=== PATIENT | female | born 1950 | race Caucasian/White ===

== ENCOUNTER 2022-03-12 10:19 | Outpatient (CLI) | payer MEDICARE, SELFPAY ==
[2022-03-12 13:38] LABS: Albumin* 3.9 g/dL (3.3-5.0)
[2022-03-12 13:40] LABS: Bilirubin Direct* 0.2 mg/dL (0.0-0.5); Bilirubin Total* 0.4 mg/dL (0.1-1.5)
[2022-03-12 13:41] LABS: Alanine Aminotransferase* 14 U/L (4-35); Alkaline Phosphatase* 68 U/L (40-150); Aspartate Amino Transferase* 22 U/L (12-35); Lipase* 75 U/L (23-300); Total Protein* 6.3 g/dL (6.0-8.3)
== END 2022-03-12 10:20 | disposition home or self-care (01) ==
PROVIDERS: PCP Internal Medicine; Visit Provider Family Medicine
DX: R10.9 Unspecified abdominal pain (principal)
CPT/HCPCS: 80076; 83690

== ENCOUNTER 2022-03-13 10:52 | Outpatient (CLI) | payer MEDICARE, SELFPAY | END 2022-03-13 10:53 | disposition home or self-care (01) | PROVIDERS: PCP Internal Medicine; Visit Provider Obstetrics & Gynecology | DX: R39.15 Urgency of urination (principal) | CPT/HCPCS: 87086 ==

== ENCOUNTER 2022-03-19 10:11 | Day surgery (SDC) | payer MEDICARE, SELFPAY ==
[2022-03-19] VITALS (17 sets, daily range): BP systolic 115–142; BP diastolic 65–84; PULSE 63–79; RESP 14–16; TEMP 35.6–36.5; O2SAT 93–100; BMI 20.9
[2022-03-19] MEDS: LACTATED RINGERS 1000 ML 1,000 ML 100 ML IV (10:30)
[2022-03-19] MEDS: ETHYL CHLORIDE 1 APPLICATION 1 APPLIC TOPICAL (10:54)
[2022-03-19] MEDS: SODIUM CHLORIDE 0.9 % (FLUSH) 10 ML SYRINGE IVF (10:55)
--- NOTE | 2022-03-19 16:13 | PM.GSPRC ---
Operative Note Date of procedure: 03/19/22 Type of Procedure: Laparoscopic cholecystectomy Procedure Description: After discussing the risks and benefits of the procedure, the patient signed informed consent.? The operative site was marked and the patient was brought to the operating room and placed on the operating table in supine position.? Care was taken to pad the patient's pressure points.?? The patient was then intubated by anesthesia.?? The operative site was then prepped and draped in the usual sterile fashion.? A time-out was then performed. Entrance to the abdomen was gained via a 5 mm Visiport in the left upper quadrant. The abdomen was insufflated and briefly surveyed for signs of injury. There was none. 11 mm umbilical port was placed as well as 2 working ports along the right costal margin. Patient was then placed in reverse Trendelenburg position with the right side up. The gallbladder had significant adhesions from the omentum, encasing the inflamed gallbladder. These adhesions were bluntly taken down and the gallbladder was noted to be hemorrhagic, edematous and in parts necrotic. There was difficulty in grasping it, so a laparoscopic needle was used to decompress as much as possible. After decompression the fundus was grasped and retracted cephalad. Dissection was made difficult secondary to hard, Vivian inflammation. The infundibulum was grasped. A combination of hook cautery and blunt dissection was used to carefully dissect out the cystic duct and artery until they could clearly be seen entering the gallbladder. There was also a small vein running parallel with the artery. The gallbladder was dissected off the cystic plate to achieve the critical view. Once this was achieved the cystic duct and artery were each clipped with 2 clips proximally and 1 clip distally and transected with the scissors. The gallbladder was then taken off of the liver bed. And removed from the abdomen using an Endo-Catch bag. A small laceration of the liver bed was noted after the procedure pleural bleeding from this area was controlled with cautery and Surgicel. I also placed Karlos within the gallbladder fossa. Once hemostasis was assured. The ports were then removed under direct vision. The umbilical port fascia was closed with 0 Vicryl. The skin was closed with absorbable subcuticular suture. Instrument sponge and needle counts were correct at the end of the case. The patient was then woken and transferred to the PACU in stable condition. ? Findings: Acute cholecystitis, distended, hemorrhagic and necrotic gallbladder. Anesthesia: GETA Surgeon: Lisbeth Galdamez MD Estimated blood loss (mL): 250 Condition: stable Disposition: PACU
[2022-03-19] MEDS: LACTATED RINGERS 1000 ML 1,000 ML 35 ML IV (16:19)
--- NOTE | 2022-03-19 16:23 | W.ANESCHARGE ---
Anesthesia Charges Start Date/Time Anesthesia Start Date: 03/19/22 Anesthesia Start Time: 12:39 Stop Date/Time Anesthesia Stop Date: 03/19/22 Anesthesia Stop Time: 16:05 Summary Emergency: No Extremes of Age: Over 68-CPT 62068
[2022-03-19] MEDS: ONDANSETRON 2 MG/ML inj IVP (17:38)
[2022-03-19 18:08] LABS: Chloride* 100 mmol/L (96-114); Potassium* 3.9 mmol/L (3.6-5.1); Sodium* 140 mmol/L (135-149)
[2022-03-19 18:11] LABS: Blood Urea Nitrogen* 14 mg/dL (7-30); Carbon Dioxide* 32 mmol/L (20-32); Creatinine* 0.4 mg/dL (0.5-1.5); Est. Creatinine Clearance* 45.09; Estimated Glomerular Filt Rate 104 ml/min; Glucose* 136 mg/dL (60-115)
[2022-03-19 18:12] LABS: Calcium* 8.6 mg/dL (8.4-10.6); Magnesium* 2.3 mg/dL (1.5-2.6)
--- NOTE | 2022-03-19 18:19 | PM.IMCN1 ---
Date of Consult Consult date: 03/19/22 Requesting Physician: General Surgery Primary Care Provider: Nina Mcintosh MD Consult Narrative Reason for consult: 71-year-old female seen for management of estee op medical complications Narrative: Bryan Rivera is a 71 year old female seen following laparoscopic cholecystectomy for management of medical problems, specifically bradycardia that occurred intraop and immediately postoperatively. Patient has had minimal symptoms of cholecystitis over the past couple weeks. Was seen outpatient for evaluation of this and ultrasound showed significantly abnormal gallbladder with gallbladder wall thickening and edema with gallbladder wall up to 1.7 cm and moderate burden of gallstones. She was referred to for surgical consultation. Today she was taken to the operating room where she had cholecystectomy performed laparoscopically. Per Dr. Galdamez the surgery was challenging due to the marked inflammation. At the end of the operation the abdominal cavity was deflated and she developed sinus bradycardia. They reinflated the abdomen and resolved. The same process occurred again. Eventually they were able to remove the air from the abdomen and she had a normal sinus rhythm. She did not have significant other abnormal vital signs with this process. She now reports that she is feeling fine. She has no significant discomfort. She has no shortness of breath, palpitations, chest pain. She reports no significant history of heart disease. She does tell me that she has had a occasional episodes of palpitations which are felt as irregular and rapid heartbeats that last for a few seconds. This occurs a couple times a week. She has never been diagnosed with a tachy dysrhythmia. She is not aware of any other heart disease history. When she was younger someone mentioned she had a heart murmur but it has not been evaluated or identified over the past several years. Review of Systems Narrative: She reports she has generally been feeling well. She has had minimal upper abdominal discomfort and pain associated with her acute cholecystitis. She has not had fever, nausea, vomiting. Over the past several days she reports she was thinking that she was actually getting better from a episode of pain last week. Bowel function has been normal. She does report that she has some chronic ureteral vaginal prolapse which does lead to some urinary urge incontinence. This has not changed recently [facility] Medical History History of iron deficiency anemia (2013) Urge incontinence Uterovaginal prolapse Surgical History History of ankle surgery History of bilateral cataract extraction (2020) History of tonsillectomy and adenoidectomy (08/29/11) History of tubal ligation (07/15/11) S/P breast biopsy Social History Smoking Status: Never smoker How often do you have a drink containing alcohol: 4 or more times a week Alcohol type: wine How many standard drinks containing alcohol do you have on a typical day: 1 or 2 How often do you have six or more drinks on one occasion: Never AUDIT-C Alcohol total score: 4 Non-prescribed substance use: denies use Caffeine: Yes (2/DAY) Meds Home Medications and Allergies Home Medications Medication Instructions Recorded Confirmed Type calcium carbonate 500 mg-vitamin 1 tab PO DAILY 03/12/22 03/19/22 History D3 3.125 mcg (125 unit) tablet estradiol 0.01% (0.1 mg/gram) 0.5 VAGINAL .Twice Weekly 03/12/22 03/15/22 History vaginal cream fexofenadine 60 mg tablet 60 mg PO DAILY PRN tab 03/12/22 03/19/22 History fluticasone propionate 50 2 INTRANASAL .Daily as needed PRN 03/12/22 03/15/22 History mcg/actuation nasal spray,suspension glucosamine HCl 500 mg tablet 500 mg PO QDAY 03/12/22 03/19/22 History primidone 250 mg tablet 250 mg PO BID tab 03/12/22 03/19/22 History propranolol 60 mg capsule,24 60 mg PO DAILY 03/12/22 03/19/22 History hr,extended release vit C 250 mg-vit E 90 mg-zinc 40 1 tab PO BID 03/12/22 03/19/22 History mg-copper 1 [id number] capsule (PreserVision AREDS-2) Allergies Allergy/AdvReac Type Severity Reaction Status Date / Time No Known Allergies Allergy Unknown Verified 03/19/22 10:56 Exam Narrative: Exam Narrative: She is alert and appears in no distress. She gives her own history. She is accompanied by her and daughter. Eyes are normal. Oropharynx normal. Neck is supple without mass or adenopathy. Respirations are clear to auscultation. Cardiovascular: S1, S2, regular rate and rhythm. No murmur gallop or rub. Abdomen: Bowel sounds active. Abdomen has for laparoscopic puncture sites which are well healed. No significant drainage. Palpation shows mild right upper quadrant tenderness and no other abdominal tenderness or mass. Extremities with intact pulses. She has good capillary refill and moves all 4 extremities well. No edema. Const: Vital Signs, click to edit/add: Vital Signs - 24 hr 03/19/22 10:37 03/19/22 16:29 03/19/22 16:30 Temperature 97.7 F 97.2 F L 97 F L Pulse Rate 70 68 Respiratory Rate 16 14 16 Blood Pressure 128/75 128/68 121/71 Pulse Oximetry 97 100 03/19/22 16:35 03/19/22 16:40 03/19/22 16:45 Temperature Pulse Rate 68 68 72 Respiratory Rate 16 16 16 Blood Pressure 132/74 126/70 Pulse Oximetry 96 96 97 Documenting provider has reviewed patient's vital signs: yes Labs Labs: [facility] 03/19/22 17:48 Sodium 140 Potassium 3.9 Chloride 100 Carbon Dioxide 32 BUN 14 Creatinine 0.4 L Glucose 136 H Calcium 8.6 Assessment and Plan Assessment and plan (1) Bradycardia associated with anesthesia: Status: Acute Assessment and Plan: Patient developed bradycardia with attempts to deflate the abdomen following laparoscopic surgery. Now resolved. No cardiovascular instability noted other than bradycardia. Will do cardiac monitoring overnight. Obtain echocardiogram tomorrow. (2) Chronic cholecystitis: Status: Acute Assessment and Plan: Status post cholecystectomy doing very well
[2022-03-19] MEDS: ROPINIROLE HCL 0.25 MG TABLET 0.5 MG PO (20:57)
[2022-03-19] MEDS: PRIMIDONE 50 MG TABLET 250 MG PO (20:57)
[2022-03-19] MEDS: ACETAMINOPHEN 325 MG TABLET 650 MG PO (22:55)
[2022-03-20] MEDS: LACTATED RINGERS 1000 ML 1,000 ML 125 ML IV (00:01)
[2022-03-20 00:15] VITALS: BP 114/57; PULSE 73; PULSE 74; RESP 16; TEMP 37; O2SAT 93
[2022-03-20] MEDS: OXYCODONE 5 MG TABLET PO ×3 (00:42→11:51)
[2022-03-20 01:22] VITALS: PULSE 69
[2022-03-20 03:19] VITALS: BP 112/88; PULSE 71; RESP 16; TEMP 36.7; O2SAT 94
--- NOTE | 2022-03-20 05:08 | PC.NURSE ---
[id number] Pt restless and unable to sleep well during night, pain minimal at 3/10, relief to 0/10 with 5 mg oxycodone x1. able to maintain sats >90% during night on RA. denies N/V, tolerating PO intake. IV to R wrist infiltrated, removed IV, elavated and warm blanket applied to arm, charge nurse updated, will update MD. lap sites x4, glued/intact, minimal old blood to sites. Daughter, Cassidy, in room with patient.
[2022-03-20 07:25] VITALS: PULSE 69
[2022-03-20 07:32] LABS: Basophils Absolute Auto 0.03 K/uL (0.00-0.30); Basophils Percent Auto 0.5 % (0.0-3.0); Eosinophils Absolute Auto 0.03 K/uL (0.00-0.50); Eosinophils Percent Auto 0.5 % (0.0-7.0); Hematocrit 38.2 % (33.0-51.0); Hemoglobin* 12.7 gm/dL (12.0-16.0); Lymphocytes Absolute Auto 1.56 K/uL (0.90-2.90); Lymphocytes Percent Auto 26.8 % (20-44); Mean Corpuscular HGB Conc 33 gm/dL (32-36); Mean Corpuscular Hemoglobin 31 pg (26-34); Mean Corpuscular Volume 94 fL (80-100); Monocytes Percent Auto 7.4 % (0.0-11.0); Neutrophils Absolute Auto 3.77 K/uL (1.7-7.0); Neutrophils Percent Auto 64.8 % (42.0-72.0); Platelet Count* 326 K/uL (140-440); RDW Coefficient of Variation % 13.1 % (11.5-15.5); Red Blood Count 4.05 m/uL (4.00-5.20); White Blood Count* 5.82 K/uL (4.50-11.00)
[2022-03-20 07:41] VITALS: BP 111/71; PULSE 64; RESP 16; TEMP 36.9; O2SAT 96
[2022-03-20 07:43] LABS: Slide Review Reflex No
--- NOTE | 2022-03-20 08:27 | W.ANESCHARGE ---
Anesthesia Charges Start Date/Time Anesthesia Start Date: 03/19/22 Anesthesia Start Time: 12:39 Stop Date/Time Anesthesia Stop Date: 03/19/22 Anesthesia Stop Time: 16:05 Summary Emergency: No Extremes of Age: Over 68-CPT 46454
[2022-03-20] MEDS: PRIMIDONE 50 MG TABLET 250 MG PO (08:42)
--- NOTE | 2022-03-20 09:02 | PM.DS1 ---
DS: Providers Provider Date Seen: 03/20/22 Primary care physician: Nina Mcintosh MD Consults: 03/19/22 16:04 Consult to Physician [CONS] Urgent Comment: Consulting Provider: David Bunch Has provider been notified: Yes Attending Physician on discharge: Lisbeth Galdamez MD DS: Diagnosis Discharge Diagnosis (1) Chronic cholecystitis: Status: Acute (2) Bradycardia associated with anesthesia: Status: Acute DS: Summary Hospital Course Hospital Course: Patient was seen in the clinic last week for right upper quadrant abdominal pain. At that time the pain was resolving and patient was scheduled to undergo laparoscopic cholecystectomy. She underwent a laparoscopic cholecystectomy on 03/19/2022. The procedure was difficult secondary to and edematous, hemorrhagic and necrotic gallbladder. During the procedure she also had some bradycardia. She was admitted to the hospital for observation. The hospitalist was consulted, with patient undergoing cardiac monitoring overnight. No cardiac events overnight, echo was obtained prior to leaving and within normal limits. On the day of discharge patient was tolerating a regular diet, pain was well controlled and hemoglobin stable. Time Spent with Patient Time attestation: Total time spent providing and/or coordinating discharge services: Exam Narrative: Exam Narrative: General: Alert and oriented, no acute distress. Abdomen: Soft, nontender, incisions clean/dry/intact with no concern for infection Const: Vital Signs, click to edit/add: Vital Signs - 24 hr 03/19/22 10:37 03/19/22 16:29 03/19/22 16:30 Temperature 97.7 F 97.2 F L 97 F L Pulse Rate 70 68 Pulse Rate [Right Pulse Oximeter] Respiratory Rate 16 14 16 Blood Pressure 128/75 128/68 121/71 Blood Pressure [Ri ght Arm] Pulse Oximetry 97 100 03/19/22 16:35 03/19/22 16:40 03/19/22 16:45 Temperature Pulse Rate 68 68 72 Pulse Rate [Right Pulse Oximeter] Respiratory Rate 16 16 16 Blood Pressure 132/74 126/70 Blood Pressure [Ri ght Arm] Pulse Oximetry 96 96 97 03/19/22 17:00 03/19/22 17:15 03/19/22 17:30 Temperature 96.1 F L 96.8 F L 96.1 F L Pulse Rate Pulse Rate [Right Pulse Oximeter] 67 65 67 Respiratory Rate 16 16 16 Blood Pressure Blood Pressure [Ri ght Arm] 141/84 H 127/74 132/70 Pulse Oximetry 99 99 96 03/19/22 17:45 03/19/22 18:00 03/19/22 18:30 Temperature 96.1 F L 96.9 F L Pulse Rate Pulse Rate [Right Pulse Oximeter] 67 65 70 Respiratory Rate 16 16 16 Blood Pressure Blood Pressure [Ri ght Arm] 137/73 130/74 142/78 H Pulse Oximetry 98 94 96 03/19/22 19:00 03/19/22 19:04 03/19/22 20:17 Temperature 96.9 F L 96.1 F L 96.9 F L Pulse Rate 63 Pulse Rate [Right Pulse Oximeter] 71 74 Respiratory Rate 16 16 16 Blood Pressure Blood Pressure [Ri ght Arm] 134/65 140/70 H Pulse Oximetry 97 97 03/19/22 21:00 03/19/22 22:36 03/20/22 00:15 Temperature 97.7 F 98.6 F Pulse Rate Pulse Rate [Right Pulse Oximeter] 79 78 74 Respiratory Rate 16 16 Blood Pressure Blood Pressure [Ri ght Arm] 139/70 115/70 114/57 L Pulse Oximetry 96 93 93 03/20/22 01:22 03/20/22 03:19 03/20/22 07:25 Temperature 98.1 F Pulse Rate 69 69 Pulse Rate [Right Pulse Oximeter] 71 Respiratory Rate 16 Blood Pressure Blood Pressure [Ri ght Arm] 112/88 Pulse Oximetry 94 03/20/22 07:41 Temperature 98.4 F Pulse Rate Pulse Rate [Right Pulse Oximeter] 64 Respiratory Rate 16 Blood Pressure Blood Pressure [Ri ght Arm] 111/71 Pulse Oximetry 96 DS: Data Data Completed and Pending Labs on day of discharge: Labs from last 24 hours 03/20/22 03/19/22 03/19/22 06:50 17:48 15:18 WBC 5.82 RBC 4.05 Hgb 12.7 Hct 38.2 MCV 94 MCH 31 MCHC 33 RDW Coeff of Renee 13.1 Plt Count 326 Neut % (Auto) 64.8 Lymph % (Auto) 26.8 [place] % (Auto) 7.4 Eos % (Auto) 0.5 Baso % (Auto) 0.5 Neut # (Auto) 3.77 Lymph # (Auto) 1.56 [place] # (Auto) 0.40 Eos # (Auto) 0.03 Baso # (Auto) 0.03 Abs Immat Gran (auto) 0.00 Sodium 140 Potassium 3.9 Chloride 100 Carbon Dioxide 32 BUN 14 Creatinine 0.4 L Estimated Creat Clear 45.09 Estimated GFR 104 Glucose 136 H Calcium 8.6 Magnesium 2.3 Surg PTH (Off-Site) Pending Discharge Plan Discharge Disposition: Home, Self-Care Discharging Surgeon: Lisbeth Galdamez Follow-Up Appointment: 2 weeks, phone follow up Prescriptions: New oxycodone 5 mg tablet 5 mg PO Q6H PRN (Reason: pain) Qty: 10 0RF senna 8.6 mg capsule 8.6 mg PO DAILY PRN (Reason: constipation) Qty: 90 0RF Rx Instructions: Please take stool softeners while on narcotic pain medication. Stop if having > 2 stools per day. Continued calcium carbonate-vitamin D3 500 mg-3.125 mcg (125 unit) tablet 1 tab PO DAILY fexofenadine 60 mg tablet 60 mg PO DAILY PRN PreserVision AREDS-2 250-90-40-1 mg capsule 1 tab PO BID propranolol 60 mg capsule,extended release 24 hr 60 mg PO DAILY primidone 250 mg tablet 250 mg PO TID estradiol 0.01 % (0.1 mg/gram) cream 0.5 appful vaginal 2XW PRN Rx Instructions: use nightly for 2 weeks, then twice weekly fluticasone propionate 50 mcg/actuation spray,suspension 2 spray intranasal DAILY PRN glucosamine HCl 500 mg tablet 500 mg PO QDAY Rx Instructions: administer with a meal ropinirole 0.5 mg tablet 0.5 mg PO QDAY Qty: 30 5RF venlafaxine 75 mg capsule,extended release 24hr 75 mg PO DAILY Activity Level: Activity as Tolerated Activity Detail: Activity as tolerated. Avoid strenuous activity. No lifting greater than 20 lb for 2 weeks. Discharge Diet: Low Fat/Low Cholesterol Patient Instructions: Oxycodone, Rapid Release (By mouth), Senna (By mouth), Laparoscopic Cholecystectomy (DC) Additional Instructions: Okay to shower. No soaking in a bath or swimming for 2 weeks. Please have your primary care provider follow up on Echo results Follow-up: Lisbeth Galdamez MD [Staff Physician] - 04/03/22 2:00 pm (Phone appointment, clinic will call you. ) Nina Mcintosh MD [Primary Care Provider] - Discharge Orders: Discharge Order (Routine); Ordered 03/20/22 Ordered By: Mohan Harp
[2022-03-20 11:09] VITALS: BP 127/76; PULSE 78; RESP 16; TEMP 37.1; O2SAT 96
[2022-03-20] MEDS: ACETAMINOPHEN 325 MG TABLET 650 MG PO (13:27)
--- NOTE | 2022-03-20 13:39 | PM.IMPN1 ---
Progress Note: A&P Assessment and plan (1) Bradycardia associated with anesthesia: Status: Acute Plan (1) Bradycardia associated with anesthesia: ?Status:?Acute ?Assessment and Plan: Patient developed bradycardia with attempts to deflate the abdomen following laparoscopic surgery.? Now resolved.? No cardiovascular instability noted other than bradycardia.? Prelim Echo re-assuring; will need PCP to follow up on formal Echo (2) Chronic cholecystitis: ?Status:?Acute ?Assessment and Plan: Status post cholecystectomy doing very well Time Spent With Patient Total time spent: 20 minutes Subjective Date Seen: 03/20/22 Interval history: patient doing well discharging today denies chest pain, pressure, sob denies dizziness Exam Narrative: Exam Narrative: Gen: NAD HEENT: NCAT EOMI MMM CV: RRR normal s1 s2 Lungs: CTAB Abd: soft, nt, nd Neuro: Alert, oriented Const: Vital Signs, click to edit/add: Vital Signs - 24 hr 03/19/22 16:29 03/19/22 16:30 03/19/22 16:35 Temperature 97.2 F L 97 F L Pulse Rate 68 68 Pulse Rate [Right Pulse Oximeter] Respiratory Rate 14 16 16 Blood Pressure 128/68 121/71 132/74 Blood Pressure [Ri ght Arm] Pulse Oximetry 100 96 03/19/22 16:40 03/19/22 16:45 03/19/22 17:00 Temperature 96.1 F L Pulse Rate 68 72 Pulse Rate [Right Pulse Oximeter] 67 Respiratory Rate 16 16 16 Blood Pressure 126/70 Blood Pressure [Ri ght Arm] 141/84 H Pulse Oximetry 96 97 99 03/19/22 17:15 03/19/22 17:30 03/19/22 17:45 Temperature 96.8 F L 96.1 F L 96.1 F L Pulse Rate Pulse Rate [Right Pulse Oximeter] 65 67 67 Respiratory Rate 16 16 16 Blood Pressure Blood Pressure [Ri ght Arm] 127/74 132/70 137/73 Pulse Oximetry 99 96 98 03/19/22 18:00 03/19/22 18:30 03/19/22 19:00 Temperature 96.9 F L 96.9 F L Pulse Rate Pulse Rate [Right Pulse Oximeter] 65 70 71 Respiratory Rate 16 16 16 Blood Pressure Blood Pressure [Ri ght Arm] 130/74 142/78 H 134/65 Pulse Oximetry 94 96 97 03/19/22 19:04 03/19/22 20:17 03/19/22 21:00 Temperature 96.1 F L 96.9 F L 97.7 F Pulse Rate 63 Pulse Rate [Right Pulse Oximeter] 74 79 Respiratory Rate 16 16 16 Blood Pressure Blood Pressure [Ri ght Arm] 140/70 H 139/70 Pulse Oximetry 97 96 03/19/22 22:36 03/20/22 00:15 03/20/22 01:22 Temperature 98.6 F Pulse Rate 69 Pulse Rate [Right Pulse Oximeter] 78 74 Respiratory Rate 16 Blood Pressure Blood Pressure [Ri ght Arm] 115/70 114/57 L Pulse Oximetry 93 93 03/20/22 03:19 03/20/22 07:25 03/20/22 07:41 Temperature 98.1 F 98.4 F Pulse Rate 69 Pulse Rate [Right Pulse Oximeter] 71 64 Respiratory Rate 16 16 Blood Pressure Blood Pressure [Ri ght Arm] 112/88 111/71 Pulse Oximetry 94 96 03/20/22 11:09 Temperature 98.8 F Pulse Rate Pulse Rate [Right Pulse Oximeter] 78 Respiratory Rate 16 Blood Pressure Blood Pressure [Ri ght Arm] 127/76 Pulse Oximetry 96 Labs Labs: Laboratory Results - last 24 hr 03/19/22 03/20/22 17:48 06:50 WBC 5.82 RBC 4.05 Hgb 12.7 Hct 38.2 MCV 94 MCH 31 MCHC 33 RDW Coeff of Renee 13.1 Plt Count 326 Neut % (Auto) 64.8 Lymph % (Auto) 26.8 [place] % (Auto) 7.4 Eos % (Auto) 0.5 Baso % (Auto) 0.5 Neut # (Auto) 3.77 Lymph # (Auto) 1.56 [place] # (Auto) 0.40 Eos # (Auto) 0.03 Baso # (Auto) 0.03 Abs Immat Gran (auto) 0.00 Sodium 140 Potassium 3.9 Chloride 100 Carbon Dioxide 32 BUN 14 Creatinine 0.4 L Estimated Creat Clear 45.09 Estimated GFR 104 Glucose 136 H Calcium 8.6 Magnesium 2.3
--- NOTE | 2022-03-20 14:38 | PC.NURSE ---
Discharge: Patient pleasant and cooperative. Independent in room. Tolerating regular diet well. No IV at time of discharge. Discharge instructions on follow ups, medication and diet given, questions answered as needed. Patient discharged from floor @ 1425 via wheelchair, discharged to home with .
== END 2022-03-20 14:25 | disposition home or self-care (01) ==
LOC: OR 10:13 → MEDSURG 17:17
PROVIDERS: PCP Internal Medicine; Visit Provider Surgery
PROC: 0FT44ZZ Resection of Gallbladder, Percutaneous Endoscopic Approach (ICD-10-PCS; CPT 47562; principal; 2022-03-19 11:45)
DX: K80.12 Calculus of gallbladder with acute and chronic cholecystitis without obstruction (principal); I97.191 Other postprocedural cardiac functional disturbances following other surgery; R00.1 Bradycardia, unspecified
CPT/HCPCS: 47562; 00790; 36415; 80048; 83735; 85025; 88304; 93005; 93306; 94761; 99100; A9270; J2405; J3010; J7120

== ENCOUNTER 2022-05-20 14:28 | Outpatient (CLI) | payer MEDICARE, SELFPAY | END 2022-05-20 14:29 | disposition home or self-care (01) | PROVIDERS: PCP Internal Medicine; Visit Provider Obstetrics & Gynecology | DX: R33.9 Retention of urine, unspecified (principal); R39.15 Urgency of urination | CPT/HCPCS: 87086 ==

== ENCOUNTER 2022-05-29 13:53 | Outpatient (CLI) | payer MEDICARE, SELFPAY ==
--- NOTE | 2022-05-29 14:00 | CRLHL7_ITS ---
For Patients: As a result of the Century Cures Act, medical imaging exams and procedure reports are released immediately into your electronic medical record. You may view this report before your referring provider. If you have questions, please contact your health care provider. DXA BONE MINERAL DENSITY STUDY Reason for exam: Osteopenia. Current height (in): 65. Weight (lb): 127. Menopause age: 53. Ethnicity: White. 1. Have you had a previous hip or vertebral fracture? No. 2. Have you had any fractures during your adult life which did not result from significant trauma (e.g., auto accident)? No. 3. Did either of your parents have a hip fracture? No. 4. Do you smoke? No. 5. Have you ever taken Glucocorticoids? No. 6. Do you have rheumatoid arthritis? No. 7. Do you have secondary osteoporosis? No. 8. Do you drink 3 or more alcoholic drinks per day? No. 9. Are you being treated for osteoporosis? No. 10. Have you ever taken any of the following medications: Actonel, Evista, Fosamax, Miacalcin, Reclast, Boniva, Forteo, HRT (i.e. estrogen/hormone therapy), Protelos, Prolia, Vitamin D, Calcium, other ??? please specify. ANSWER: Yes, Evista, Fosamax, vitamin D, HRT, and calcium. 11. Do you have any of the following medical conditions: Anorexia or bulimia, asthma or emphysema, end stage renal disease, hyperparathyroidism, any seizure disorders, cancer, inflammatory bowel diseases, hysterectomy, other ??? please specify. ANSWER: No. 12. What was your maximum height (inches)? 67. 13. Do you perform weight bearing exercise regularly? No. 14. Do you regularly consume dairy products? Yes. 15. Do you drink caffeinated beverages? Yes. If female: 16. At what age did your period start? 11. 17. Are you premenopausal? No. 18. How many full term pregnancies have you had? 2. 19. Have you ever missed your period for more than 6 months in a row (not including or menopause)? No. TECHNIQUE: Bone mineral density study was performed using the [employer]. FINDINGS: The results of the study expressed as bone mineral density (BMD) are as follows: Lumbar spine L1to L4: BMD: 0.949 g/cm2. T-score: -0.9. Z-score: 1.4 Neck Left: BMD: 0.537 g/cm2. T-score: -2.8. Z-score: -0.8 Right: BMD: 0.574 g/cm2. T-score: -2.5. Z-score: -0.5 Total Left: BMD: 0.642 g/cm2. T-score: -2.5. Z-score: -0.7 Right: BMD: 0.638 g/cm2. T-score: -2.5. Z-score: -0.8 IMPRESSION: Osteoporosis. *Comparison exams done prior to 01/2020 were performed on different unit, [employer]. COMPARISON: Compared with scan of 02/15/2019, the bone mineral density has increased by 3.6 percent at the spine and decreased by 6.7 percent at the hip. Rebeca Maxwell M.D. Diagnostic/Breast Radiologist [email or web address] SAMIRA/aparna braun/Dictated by: Rebeca Maxwell MD @ 05/29/2022 2:56:00 PM (Electronically Signed)
== END 2022-05-29 13:54 | disposition home or self-care (01) ==
LOC: RAD 13:55
PROVIDERS: PCP Internal Medicine; Visit Provider Internal Medicine
DX: M85.80 Other specified disorders of bone density and structure, unspecified site (principal); M81.0 Age-related osteoporosis without current pathological fracture
CPT/HCPCS: 77080

== ENCOUNTER 2022-07-01 11:00 | Outpatient (RCR) | payer MEDICARE, SELFPAY ==
--- NOTE | 2022-05-21 15:31 | PT.OPEX ---
[facility] Outpatient Eval PT [facility] Outpatient Eval Start: 05/21/22 13:02 Freq: Status: Active Protocol: Document 05/21/22 14:37 MARA (Rec: 05/21/22 15:14 MARA [email or web address]) E-signed By Tea De La Cruz, PT Physical Therapy Outpatient Evaluation Insurance Information Recert Due Date 08/19/22 Insurance Name Medicare B,[employer] Medical Diagnosis Uterovaginal prolapse Treating Diagnosis weakness lack of muscle coordination Referring MD Dr. Remigio Ramos Bryan presents to PT with diagnosis of uterovaginal prolapse. Symptoms started years ago and have gradually worsened. Her main c/o is of urinary retention, urinary urgency and urinary and fecal incontinence. Pt does use a pessary in which she can insert and remove on her own. Pt is considering surgery for the uterine prolapse due to frustration with her continued symptoms. Does report difficulty emptying bladder and needing to use external pressure to help empty bladder . She is leaking periodically during day if she waits to long to urinate. Will urinate just in case to avoid UI symptoms. The fecal incontinence can be related to when she has softer stool types (type 6 on [place] stool scale). Pt will also have the occasional type 1 stool that may leak into her underwear after defecting. Pt is not alway that she is leaking stool. Goals for therapy are to learn how to better improve her PFM function and reduce her incontinence symptoms. Date of Last Physician Visit 05/20/22 Current Work Status Retired Precautions Treatment Precautions/Contraindications depression gallbladder removed 03/15 Assessment Assessment/Impression 71 yo client presents with c/o fecal and urinary incontinence, urinary retention, and uterine prolapse. Pt admits to limiting fluid intake and frequent urination to reduce her feeling of urgency and UI symptoms. Does have difficulty with fully emptying bladder needing to concentrate on it. Overall her diet is good. Her bowel consistency does vary. Does have difficulty controlling bowel with very firm or very loose stools. Has done kegels in the past without reducing her symptoms. Did not have time to complete her PFM assessment due to time constraints. Will assess pelvic region at her next session. Plan is to continue with further skilled PT services including use of therapeutic exercise, therapeutic activities, neuromuscular re-ed, manual therapy, and self cares for symptom reduction. Plan of Care Rehabilitation Potential Good Physical Therapy Goals Short term goals to be achieved in 4 weeks 1. Able to state 4 of 4 urge suppression/bladder retraining strategies 2. Able to report voiding intervals of 1X every 2-4 hours, 6-8 times per day, 3 out of 7 days. 3. Pt will demonstrate use of functional PFM contraction by performing a precontraction to eliminate fecal and urinary incontinence with walking, changes in position,bending/ lifting 50% of the time or greater. 4. Pt will be able to report ability to fully empty bladder 2 out of 4 trials. FCI goals to be achieved in 12 weeks. 1. Independent with self-care program to allow for reduction in her incontinence symptoms 2. Will report an 80% reduction in her fecal or urinary incontinence as seen with ability to stay dry a minimum of 5 out of 7 days. 3. Able to fully empty bowel and bladder 6 out of 7 days. Coordination/Communication With Referral Source Treatment Plan/Direct Interventions Joint Mobilization,Manual Therapy,Neuromuscular Re-ed, Self-Care/Home Management, Therapeutic Activities, Therapeutic Exercises Frequency/Duration 1 time a week for up to 12 visits Patient Will Be Discharged From Therapy Completion of LTG(s),Skills Plateau,Independent w/HEP, Independently Progressing Evaluation Billing Untimed Code Treatment Minutes 45 Complexity Moderate Certification Information Initial Certification Date 05/21/22 Ending Certification Date 08/19/22 Provider Signature Shows Agreement With POC & Medical Necessity Physician Comment/Change Comment or Changes Physician NPI Number #
== END 2022-10-16 09:29 | disposition home or self-care (01) ==
PROVIDERS: PCP Internal Medicine; Visit Provider Obstetrics & Gynecology
DX: N81.4 Uterovaginal prolapse, unspecified (principal); Z51.89 Encounter for other specified aftercare
CPT/HCPCS: 97110; 97140; 97162; 97535

== ENCOUNTER 2022-09-07 15:31 | Emergency (ER) | payer MEDICARE, SELFPAY ==
[2022-09-07 15:41] VITALS: BP 154/82; PULSE 64; RESP 14; TEMP 36.1; O2SAT 96; BMI 21.6
--- NOTE | 2022-09-07 15:56 | CRLHL7_ITS ---
For Patients: As a result of the Cures Act, medical imaging exams and procedure reports are released immediately into your electronic medical record. You may view this report before your referring provider. If you have questions, please contact your health care provider. Indication: Fell Technique: Three views left shoulder Comparison: No comparison Findings: Mild comminuted fracture of the left humeral neck and greater tuberosity slight inferior subluxation without dislocation seen. Dictated by Rebeca Maxwell MD @ 09/07/2022 4:21:12 PM (Electronically Signed)
--- NOTE | 2022-09-07 15:56 | ED.GENADULT ---
HPI - General Adult General Chief complaint: Shoulder Injury/Pain Stated complaint: Fell on ice, L shoulder injury Time Seen by Provider: 09/07/22 15:36 History of Present Illness HPI narrative: This 72-year-old female comes in with an injury to her left shoulder. Just prior to arrival she was outside on slippery ice and fell onto her left side. She landed primarily on her shoulder but also did have some discomfort in her left knee. She was able to get up with help and did ambulate without difficulty on her lower extremities. She has pain and swelling in the proximal portion of her left humerus. She did not hit her head or have loss of consciousness. Related Data Home Medications Medication Instructions Recorded Confirmed calcium carbonate 500 mg-vitamin 1 tab PO DAILY 03/12/22 05/20/22 D3 3.125 mcg (125 unit) tablet glucosamine HCl 500 mg tablet 500 mg PO QDAY 03/12/22 05/20/22 vit C 250 mg-vit E 90 mg-zinc 40 1 tab PO BID 03/12/22 05/20/22 mg-copper 1 st-yvtdhi-cstyos capsule (PreserVision AREDS-2) Previous Rx's Medication Instructions Recorded propranolol 60 mg capsule,24 60 mg PO DAILY #90 caps 05/16/22 hr,extended release ropinirole 1 mg tablet 1 mg PO QDAY #90 tabs 05/16/22 alendronate 70 mg tablet 70 mg PO QWEEK #12 tabs 06/04/22 codeine 10 mg-guaifenesin 100 mg/5 5 ml PO Q4-6H PRN cough #473 mL 08/01/22 mL oral liquid fluoxetine 10 mg tablet 10 mg PO QAM #90 tabs 08/07/22 primidone 250 mg tablet 250 mg PO TID #270 tabs 08/13/22 estradiol 0.01% (0.1 mg/gram) 0.5 appful vaginal 2XW #42.5 grams 08/28/22 vaginal cream hydrocodone 5 mg-acetaminophen 325 1 tab PO Q4-6H PRN pain #30 tabs 09/07/22 mg tablet Allergies Allergy/AdvReac Type Severity Reaction Status Date / Time No Known Allergies Allergy Unknown Verified 08/01/22 10:11 Review of Systems Status of ROS: Reports: 10 or more systems reviewed and unremarkable except as noted in History and below Narrative: Constitutional: No fevers, no weight gain or loss. Eyes: No discharge. No vision changes. HENT: No congestion, no sore throat, no ear pain. Cardiovascular: No chest pain, no palpitations. Respiratory: No shortness of breath, no wheezes, no cough. Gastrointestinal: No abdominal pain, no vomiting, no diarrhea. Genitourinary: No dysuria, no hematuria. Musculoskeletal: Left shoulder injury as described above. Skin: No rashes, no pruritis. Neurological: No dizziness, weakness, sensory change, speech change. Endo/Heme/Allergies: No bruising or bleeding. No polydipsia. Pysch: no suicidality, no anxiety, no insomnia. All other systems reviewed and are negative. [facility] Medical History (Updated 09/07/22 @ 16:56 by ) History of iron deficiency anemia (2013) Surgical History (Updated 05/13/22 @ 08:44 by Nina Mcintosh MD) History of ankle surgery History of benign breast biopsy History of bilateral cataract extraction (2020) History of laparoscopic cholecystectomy History of tonsillectomy and adenoidectomy (08/29/11) History of tubal ligation (07/15/11) Social History Smoking Status: Never smoker How often do you have a drink containing alcohol: 4 or more times a week Alcohol type: wine How many standard drinks containing alcohol do you have on a typical day: 1 or 2 How often do you have six or more drinks on one occasion: Never AUDIT-C Alcohol total score: 4 Non-prescribed substance use: denies use Caffeine: Yes (2/DAY) Little interest or pleasure in doing things: several days Feeling down, depressed, or hopeless: several days Exam Narrative: Exam Narrative: Constitutional: Well-developed, well-nourished, no acute distress. HEENT: Normocephalic, atraumatic. Neck: Normal range of motion. Nontender. Supple. Heart: Regular. No murmurs. Normal rate. Intact distal pulses. Lungs: Clear to auscultation. No chest discomfort. No wheezes, rhonchi, or rales. Abdomen: Normal bowel sounds. Nontender. No rebound tenderness. Genitalia: Deferred. Back: No midline tenderness. Normal range of motion. Extremities: Pain with swelling in the proximal portion of the left humerus. Skin: Intact. No rash. Warm. No erythema or pallor. Neurologic: No altered sensation. No weakness. Alert and oriented. Psychiatric: No suicidality. No anxiety or depression. No insomnia. Nursing notes and vitals signs are reviewed. Const: Vital Signs, click to edit/add: Vital Signs - 24 hr 09/07/22 15:41 Temperature 96.9 F L Pulse Rate [Right Pulse Oximeter] 64 Respiratory Rate 14 Blood Pressure [Ri ght Upper Arm] 154/82 H Pulse Oximetry 96 Oxygen Delivery Me thod Room Air Course Vital Signs Vital signs: Initial Vital Signs Temperature 96.9 F L 09/07/22 15:41 Temperature Source Temporal Artery Scan 09/07/22 15:41 Pulse Rate 64 09/07/22 15:41 Respiratory Rate 14 09/07/22 15:41 Blood Pressure 154/82 H 09/07/22 15:41 Blood Pressure Mean 106 09/07/22 15:41 Blood Pressure Position Sitting 09/07/22 15:41 Pulse Oximetry 96 09/07/22 15:41 Oxygen Delivery Method 09/07/22 15:41 Vital Signs Temperature 96.9 F L 09/07/22 15:41 Pulse Rate 64 09/07/22 15:41 Respiratory Rate 14 09/07/22 15:41 Blood Pressure 154/82 H 09/07/22 15:41 Pulse Oximetry 96 09/07/22 15:41 Oxygen Delivery Method 09/07/22 15:41 Temperature 96.9 F L 09/07/22 15:41 Pulse Rate 64 09/07/22 15:41 Respiratory Rate 14 09/07/22 15:41 Blood Pressure 154/82 H 09/07/22 15:41 Pulse Oximetry 96 09/07/22 15:41 Oxygen Delivery Method 09/07/22 15:41 Medical Decision Making MDM Narrative Medical decision making narrative: This patient comes in with an injury to her left shoulder as described above. She had some initial pain in her left knee but states that that is very minimal now and that she was able to ambulate on her legs without difficulty. An x-ray of the knee was not obtained but 1 was obtain for her left shoulder of course. This shows evidence of a proximal humerus fracture. The patient received an intramuscular injection of morphine 10 mg. She was placed in a sling and arrangements are made for follow-up appointment with orthopedic clinic. She received a prescription for Anderson. Imaging Data XR L Shoulder: Radiologist's impression: Mild comminuted fracture of the left humeral neck and greater tuberosity slight inferior subluxation without dislocation seen. Discharge Plan Discharge Clinical Impression: Fracture, humerus Patient Disposition: Home w/ Parent or Adult Condition: Unchanged Additional Instructions: Wear sling. Follow-up with orthopedic clinic as scheduled. Take medication as needed and directed. Return if worsening. Prescriptions: New hydrocodone-acetaminophen 5-325 mg tablet 1 tab PO Q4-6H PRN (Reason: pain) Qty: 30 0RF No Action calcium carbonate-vitamin D3 500 mg-3.125 mcg (125 unit) tablet 1 tab PO DAILY PreserVision AREDS-2 250-90-40-1 mg capsule 1 tab PO BID glucosamine HCl 500 mg tablet 500 mg PO QDAY Rx Instructions: administer with a meal propranolol 60 mg capsule,extended release 24 hr 60 mg PO DAILY Qty: 90 3RF ropinirole 1 mg tablet 1 mg PO QDAY Qty: 90 3RF alendronate 70 mg tablet 70 mg PO QWEEK Qty: 12 3RF codeine-guaifenesin 10-100 mg/5 mL liquid 5 ml PO Q4-6H PRN (Reason: cough) Qty: 473 0RF fluoxetine 10 mg tablet 10 mg PO QAM Qty: 90 3RF primidone 250 mg tablet 250 mg PO TID Qty: 270 3RF estradiol 0.01 % (0.1 mg/gram) cream 0.5 appful vaginal 2XW Qty: 42.5 3RF Follow Up/Referrals: Nina Mcintosh MD [Primary Care Provider] - Stand Alone Forms: [facility] Info Instructions
[2022-09-07 16:30] VITALS: BP 145/76; PULSE 74; O2SAT 99
[2022-09-07] MEDS: MORPHINE 10 MG/ML inj IM (16:35)
[2022-09-07 17:00] VITALS: BP 135/77
== END 2022-09-07 17:44 | disposition home or self-care (01) ==
PROVIDERS: Emergency Provider Emergency Medicine Emergency Medical Services; PCP Internal Medicine
DX: S42.212A Unspecified displaced fracture of surgical neck of left humerus, initial encounter for closed fracture (principal)
CPT/HCPCS: 73030; 96372; 99284; J2270

== ENCOUNTER 2023-02-14 10:05 | Outpatient (CLI) | payer MEDICARE, SELFPAY ==
--- NOTE | 2023-02-14 10:15 | CRLHL7_ITS ---
For Patients: As a result of the Century Cures Act, medical imaging exams and procedure reports are released immediately into your electronic medical record. You may view this report before your referring provider. If you have questions, please contact your health care provider. BILATERAL SCREENING MAMMOGRAM WITH COMPUTER-AIDED DETECTION AND TOMOSYNTHESIS TECHNIQUE: CC and MLO views were obtained. These mammographic images have been obtained using full-field digital technique. These mammographic images were interpreted with the benefit of computer-aided detection. Breast Tomosynthesis was used in this interpretation. COMPARISON FILM: 02/11/22, 02/09/21, 02/09/20. FINDINGS: There are scattered areas of fibroglandular density IMPRESSION: There is no radiographic evidence for malignancy. ASSESSMENT: BI-RADS Category 1: Negative RECOMMENDATION: Routine screening mammogram in 1 year. A lay language report of this examination will be provided to the patient. Elio Mayo M.D. Diagnostic/Nuclear Medicine Radiologist [email or web address] DOMINGA/Dictated by: Elio Mayo MD @ 02/14/2023 11:02:00 AM (Electronically Signed)
== END 2023-02-14 10:06 | disposition home or self-care (01) ==
LOC: MAMMO 10:05
PROVIDERS: PCP Internal Medicine; Visit Provider Internal Medicine
DX: Z12.31 Encounter for screening mammogram for malignant neoplasm of breast (principal)
CPT/HCPCS: 77063; 77067

== ENCOUNTER 2023-04-17 08:49 | Outpatient (CLI) | payer MEDICARE, SELFPAY | END 2023-04-17 08:50 | disposition home or self-care (01) | LOC: NFLDREF 04-19 12:24 | PROVIDERS: PCP Internal Medicine; Referring Provider Internal Medicine; Visit Provider Internal Medicine | DX: M81.0 Age-related osteoporosis without current pathological fracture (principal); Z13.6 Encounter for screening for cardiovascular disorders | CPT/HCPCS: 80061; 82306 ==

== ENCOUNTER 2023-07-07 14:30 | Outpatient (RCR) | payer MEDICARE, SELFPAY ==
--- NOTE | 2023-05-20 14:06 | PT.OPEX ---
Please review and sign the attached physical therapy evaluation completed on 05/20/23. Thank you. PT [facility] Out[facility] Eval PT [facility] Outpatient Eval Start: 05/16/23 14:01 Freq: Status: Active Protocol: Document 05/20/23 07:46 TLQ (Rec: 05/20/23 14:01 TLQ [id number]) E-signed By Nicolasa Marion DPT Physical Therapy Outpatient Evaluation Insurance Information Recert Due Date 08/18/23 Insurance Name Medicare B,[employer] Medical Diagnosis Other abnormalities of gait and mobility R26.89 Treating Diagnosis Unsteady on feet R26.81 Gait abnormality R26.9 Muscle weakness M62.81 Falls R29.6 Referring MD Nina Mcintosh MD Subjective Subjective Here to address concerns of balance. Patient is wondering if poor balance may be a side effect of her prescription Primidone which she takes for her tremor. Patient was evaluated and treated at [facility] recently to address her essential tremor. Reports history of falls in the past 6 months, usually slipping on ice, tripping over objects at home, turning too quickly, or while getting dressed. Took a how to fall class at [address] [place] [address]. No stairs at her house. Does not use an assistive device. Has been trying to get back into exercising, going to [address] [place] [address] about 2x per week. I feel like I'm zig zagging when walking down the street, if I'm walking with someone I constantly feel like I'm bumping into them. PMHx: L shouolder fx, R wrist fx, R ankle fx, essential tremor, depression, anxiety, arthritis, osteoporosis Current Work Status Retired Preferred Name Yoselyn ([employer]) Precautions Therapy Limitations/Systems Review Not Limited Objective Other/Pertinent Objective Balance: 5xSTS - 8 seconds with arms crossed, poor eccentric control TUG - 9 seconds, lateral path deviation SLS - L 11 seconds, R 3 seconds Tandem stance - L 4 seconds, R 2 seconds Romberg - eyes open 30 seconds Ashford balance scale - 51/56 Gait: heel strike, lateral path deviation, no A.D. 4-item DGI: 05/06 (<12 fall risk) gait with horizontal head turns (1) gait with vertical head nods ( 2) gait with speed changes (3) gait level surface (3) lower extremity strength: hip flexion 4- B hip extension 4 B hip abd. 5 B hip add. 5 B knee extension L 4+, R 5 Assessment Assessment/Impression Patient is a 72 year old female who presents to outpatient physical therapy to address impaired balance with a history of falls in the past 6 months. Falls reported to occur when losing her balance while getting dressed, completing quick transitions, or when stepping over objects . Patient has had a resting tremor for many years, reports taking Primidone as prescribed to address her tremors. Mild lower extremity weakness observed with strength testing today, right > left. Administered Ashford Balance Scale to assess balance, patient did well on items involving static balance with normal base of support, impaired balance observed with narrow base or single limb tasks. Completed 4-item dynamic gait index, patient demonstrates lateral path deviation with gait that increases with horizontal and vertical head movements. Based on score during 4-item DGI, patient is at risk for falling with ambulation. Patient was educated on strength training protocols, currently attends [employer] 2x per week, I encouraged her to complete at least 3 days of physical activities per week to align with physical activity recommended dosage. Due to patient having medical diagnosis of osteoporosis and history of fractures from falling, skilled PT would be beneficial to reduce her risk of falls and future fractures/ injuries. Based on examination finding, the patient is appropriate for skilled interventions to improve strength and dynamic balance to meet the goals as outlined below. Primary Functional Limitations history of falls, muscle weakness, impaired balance, dynamic balance, dynamic gait Plan of Care Rehabilitation Potential Good Physical Therapy Goals In 6-8 visits: - Score on 4-item DGI will improve to >10/12 for decreased risk of falls during ambulation. - Right SLS will improve to > 10 seconds to perform safe lower body dressing. - Patient will demonstrate floor transfer to safely transition off of floor should she experience a fall at home . - Patient will be IND with her HEP to continue strength and balance training. Treatment Plan/Direct Interventions Gait Training,Neuromuscular Re -ed,Self-Care/Home Management, Therapeutic Activities, Therapeutic Exercises Frequency/Duration 1-2x/week for 8 visits Patient Will Be Discharged From Therapy Completion of LTG(s),Skills Plateau,Independent w/HEP, Independently Progressing Evaluation Billing Untimed Code Treatment Minutes 30 Complexity Low Certification Information Initial Certification Date 05/20/23 Ending Certification Date 08/18/23 Provider Signature Shows Agreement With POC & Medical Necessity Physician Signature & Date Requested Please Sign/Date Here Physician Comment/Change : Physician NPI Number #
== END 2023-08-13 13:13 | disposition home or self-care (01) ==
PROVIDERS: PCP Internal Medicine; Visit Provider Internal Medicine
DX: G25.0 Essential tremor (principal); R26.89 Other abnormalities of gait and mobility; R26.81 Unsteadiness on feet; R26.9 Unspecified abnormalities of gait and mobility; M62.81 Muscle weakness (generalized); R29.6 Repeated falls; Z51.89 Encounter for other specified aftercare
CPT/HCPCS: 97110; 97112; 97161; 97167; X5282

== ENCOUNTER 2024-02-17 09:58 | Outpatient (CLI) | payer MEDICARE, SELFPAY ==
--- OUTSIDE RECORDS SUMMARY | 2024-02-17 10:01 | XMS_ITS | Referral Summary ---
Author Organization [facility] Address [address] [place] [address] Care Team Providers Care Regulatory Compliance Specialist Name Role Phone Unavailable Primary Care Provider Unavailabl e Source Comments Patient records contain information from all sites at [facility]. For routine questions regarding patient records, call [phone] during business hours, M-F 8:00 AM - 5:00 PM Central Time. Record requests for emergency care only can be directed to [phone] at any time.[facility] Encounters Date Type Department Care Team Description 02/13/2024 11:30 AM CDT Clinical Communication Virtual Review in [place], [place] 200 [place] [address] 01/06/2024 12:45 PM CDT Office Visit Department of Dermatology in [address] [phone] Peyton Ortega M.D. Keratosis Seborrheic Inflamed (Primary Dx); Nevi Multiple; Keratosis Seborrheic Discharge Disposition: Home or Self Care from Last 3 Months Allergies Active Allergy Reactions Criticality Noted Date Comments Cat Dander Other (see comments) Medium 05/04/2018 Itchy watery, eyes, sneezing, swelling of eyes Dog Dander Other (see comments) Low 05/04/2018 Itchy watery, eyes, sneezing, swelling of eyes House Dust Mite Other (see comments) Low 05/04/2018 Sneezing/congestion [place] Pollen Itching Medium 05/04/2018 Itchy eyes, nose, throat and sneezing Medications Medication Sig Dispensed Refills Start Date End Date Status propranolol (INDERAL) 60 mg tablet Take 60 mg by mouth daily. Active venlafaxine (EFFEXOR) 150 mg 24 hr tablet Take 75 mg by mouth daily with breakfast. Active alendronate (FOSAMAX) 35 mg tablet Take 35 mg by mouth daily. Take with 8oz of water, on an empty stomach. Remain upright for 30min.; taking a year break Active fluticasone (FLONASE) 50 mcg/actuation nasal spray Administer 2 sprays into each nostril as needed for rhinitis or allergies. Active estradiol (ESTRACE) 0.1 mg/g (0.01%) vaginal cream 2 (two) times a week. 3 08/22/2018 Active DENTAGEL 1.1 % gel daily. 0 09/24/2018 Active primidone (MYSOLINE) 250 mg tablet Take 1 tablet (250 mg total) by mouth 2 (two) times a day. 180 tablet 3 07/30/2019 Active metroNIDAZOLE (METROLOTION) 0.75 % lotion apply topically to affected area(s) 2 times daily 08/05/2019 Active primidone (MYSOLINE) 250 mg tablet Take 250 mg by mouth 2 (two) times a day. Active rOPINIRole (REQUIP) 1 mg tablet 05/16/2022 Active rOPINIRole (REQUIP) 0.5 mg tablet 04/18/2022 Active alendronate (FOSAMAX) 70 mg tablet Take 70 mg by mouth once a week. 06/04/2022 Active calcium carbonate-vitamin D3 500 mg-3.125 mcg (125 unit) per tablet Take 1 tablet by mouth daily. 03/12/2022 Active estradiol 0.01 % - plasticized PF (vaginal) Insert 0.5 applicators into the vagina 2 (two) times a week. 08/28/2022 Active glucosamine HCl 500 mg tablet Take 500 mg by mouth daily. 03/12/2022 Active primidone (MYSOLINE) 250 mg tablet Take 250 mg by mouth 3 (three) times a day. 08/13/2022 Active propranoloL (INDERAL) 60 mg tablet Take 60 mg by mouth daily. 05/16/2022 Active rOPINIRole (REQUIP) 1 mg tablet Take 1 mg by mouth daily. 05/16/2022 Active vit C,T-Sf-qzlcs-lutein -zeaxan (PreserVision AREDS-2) 250-90-40-1 mg per capsule Take 1 tablet by mouth daily. 03/12/2022 Active biotin 1 mg tablet Take 10,000 mcg by mouth daily. Active Active Problems Problem Noted Date Diagnosed Date Tremor Essential 07/26/2019 Repeated Falls 07/26/2019 Social History Tobacco Use Types Packs/Day Years Used Date Smoking Tobacco: Never Smokeless Tobacco: Never Alcohol Use Standard Drinks/Week Comments Yes 0 (1 standard drink = 0.6 oz pur e alcohol) [facility] Utilities Answer Date Recorded In the past 12 months has e [employer], gas, oil, or water [employer] threatened to shut off services in your home? No 12/31/2023 Humiliation, Afraid, Rape, and Kick questionnair e Answer Date Recorded Within the last year, have y ou been afraid of your partner or ex-partner? No 12/06/2022 Within the last year, have y ou been humiliated or emotionally abused in other ways by your partner or ex-partner? No Within the last year, have y ou been kicked, hit, slapped, or otherwise physically hurt by your partner or ex-partner? No 12/06/2022 Within the last year, have y ou been raped or forced to have any kind of sexual activity by your partner or ex-partner? No 12/06/2022 Social Connection and Isolat ion Panel [NHANES] Answer Date Recorded In a typical week, how many times do you talk on the phone with family, friends, or neighbors? More than three times a week 12/06/2022 How often do you get togethe r with friends or relatives? More than three times a week 12/06/2022 How often do you attend chur ch or catholic services? More than 4 times per year 12/06/2022 Do you belong to any clubs o r organizations such as moravian groups, unions, fraternal or athletic groups, or school groups? Yes 12/06/2022 How often do you attend meet ings of the clubs or organizations you belong to? More than 4 times per year 12/06/2022 Are you , , di vorced, , never , or living with a partner? 12/06/2022 AUDIT-C Answer Date Recorded Q1: How often do you have a drink containing alc ohol? 2-3 times a week 12/06/2022 Q2: How many drinks containi ng alcohol do you have on a typical day when you are drinking? 1 or 2 12/06/2022 Q3: How often do you have si x or more drinks on one occasion? Never 12/06/2022 Overall Financial Resource Strain (CARDIA) Answe r Date Recorded How hard is it for you to pa y for the very basics like food, housing, medical care, and heating? Not hard at all 12/06/2022 [facility] of Occupat ional Health - Occupational Stress Questionnaire Answer Date Recorded Do you feel stress - tense, restless, nervous, or anxious, or unable to sleep at night because your mind is troubled all the time - these days? Only a little 12/06/2022 Exercise Vital Sign Answer Date Recorde d On average, how many days pe r week do you engage in moderate to strenuous exercise (like a brisk walk)? 1 day 12/31/2023 On average, how many minutes do you engage in exercise at this level? 30 min 12/31/2023 Hunger Vital Sign Answer Date Recorded Within the past 12 months, y ou worried that your food would run out before you got the money to buy more. Never true 12/31/19 24 Within the past 12 months, t he food you bought just didn't last and you didn't have money to get more. Never true 12/31/2023 PRAPARE - Transportation Answer Date Re corded In the past 12 months, has l ack of transportation kept you from medical appointments or from getting medications? No 03/2024 In the past 12 months, has l ack of transportation kept you from meetings, work, or from getting things needed for daily living? No 12/31/2023 Nutrition Answer Date Recorded On average, how many serving s of fruits and vegetables do you eat per day (serving size is equal to 1 cup or approximately the size of a tennis ball)? 3-5 12/31/2023 Dental Answer Date Recorded Dental: Regular Dentist Yes 05/31/20 21 Employment Answer Date Recorded Employment status Retired 12/31/2023 Housing Stability Answer Date Recorded What is your living situation today? I have a [facility] place to live 12/31/2023 Education Answer Date Recorded What is the highest level of school you have completed or the highest degree you have received? Master's degree (e.g., MA, MS, Lin, MEd, [employer]ITE KID BUFFER, JAKY) 02/10/2020 Sex and Gender Information Value Date Recorded Sex Assigned at Female 05/31/2021 9:13 PM CDT Gender Identity Female 02/10/2020 9:11 PM CDT Sexual Orientation Straight 02/10/2020 9: 11 PM CDT Last Filed Vital Signs Vital Sign Reading Time Taken Comments Blood Pressure 107/66 07/02/2021 1:34 PM DATA ENTRY ANALYST Pulse 75 07/02/2021 1:34 PM DATA ENTRY ANALYST Temperature 36.6 ??C (97.9 ??F) 02/15/2020 1:52 PM CD T Respiratory Rate - - Oxygen Saturation - - Inhaled Oxygen Concentration - - Weight 57.9 kg (127 lb 10.3 oz) 07/02/2021 1:34 PM DATA ENTRY ANALYST Height - - Body Mass Index - - Plan of Treatment Upcoming Encounters Date Type Department Care Team (Latest Contact Info) Description 02/18/2024 8:00 AM CDT Comprehensive Visit Department of Neurology in [place], [place] [address] [place] [address] Joshua Brooks M.D. [address] [place] [phone] 02/18/2024 10:30 AM CDT Comprehensive Visit Department of Neurology in [place], [place] [address] [place] [phone] Hu Gtz, Ph.D. [address] [place] [phone] 02/18/2024 11:45 AM CDT Appointment Department of Radiology, [facility], in [place], [place] [address] [place] [address] Joshua Brooks M.D. [address] [place] [phone] Discharge Disposition: Home or Self Care 02/18/2024 1:00 PM CDT Education Department of Neurology in [place], [place] [address] [place] [phone] Joshua Brooks M.D. [address] [place] [phone] 02/18/2024 3:00 PM CDT Appointment Department of Radiology, [facility] in [place], [place] [address] [place] [phone] Joshua Brooks M.D. [address] [place] [phone] 02/19/2024 1:00 PM CDT Appointment Department of Neurology in [place], [place] [address] [place] [phone] Joshua Brooks M.D. [address] [place] [phone] Discharge Disposition: Home or Self Care 03/03/2024 10:00 AM CDT Comprehensive Visit Department of Neurologic Surgery in [place], [place] [address] [place] [phone] Barrington Mercer M.D., Ph.D. [address] [place] [phone] Medical Devices Implanted Type Area Apprentice Embalmer Device Identifier Shelf Expiration Date Model / Serial / Lot Hardware E.G. Pins/Screws/R ods Hardware e.g. pins/screws/ rods Right: Ankle
--- OUTSIDE RECORDS SUMMARY | 2024-02-17 10:01 | XMS_ITS | Encounter Summary ---
Author Organization [facility] Address [address] [place] [address] Care Team Providers Care Vocational Rehabilitation Teacher Name Role Phone Unavailable Primary Care Provider Unavailabl e Encounter Details Date Type Department Care Team (Latest Contact Info) Description 02/13/2024 11:30 AM CDT Clinical Communication Virtual Review in [place], [place] [address] [place] [address] Social History Tobacco Use Types Packs/Day Years Used Date Smoking Tobacco: Never Smokeless Tobacco: Never Alcohol Use Standard Drinks/Week Comments Yes 0 (1 standard drink = 0.6 oz pur e alcohol) [facility] Utilities Answer Date Recorded In the past 12 months has [facility] electric, gas, oil, or water [employer] threatened to shut off services in your [...] often do you attend chur ch or scientologist services? More than 4 times per year 12/06/2022 Do you belong to any clubs o r organizations such as jewish groups, unions, fraternal or athletic groups, or [...] and heating? Not hard at all 12/06/2022 [facility] of Occupat ional Health - Occupational Stress [...] Date Recorded Dental: Regular Dentist Yes 05/31/20 Employment Answer Date Recorded Employment status Retired 12/31/2023 Housing Stability Answer Date Recorded What is your living situation today? I have a [facility] place to live 12/31/2023 Education Answer Date Recorded What is the highest level of school you have completed or the highest degree you have received? Master's degree (e.g., MA, MS, Lin, MEd, BU[employer]TON [employer]KER, JAKY) 02/10/2020 Sex and Gender Information Value Date Recorded Sex Assigned at Female 05/31/2021 9:13 PM CDT Gender Identity Female 02/10/2020 9:11 PM CDT Sexual Orientation Straight 02/10/2020 9: 11 PM CDT documented as of this encounter Plan of Treatment Upcoming Encounters Date Type Department Care Team (Latest Contact Info) Description 02/18/2024 8:00 AM CDT Comprehensive Visit Department of Neurology in [place], [place] [address] [place] [address] Joshua Brooks M.D. [address] [place] [address] 02/18/2024 10:30 AM CDT Comprehensive Visit Department of Neurology in [place], [place] [address] [place] [address] Hu Gtz, Ph.D. [address] [place] [address] 02/18/2024 11:45 AM CDT Appointment Department of Radiology, [facility] in [place], [place] [address] [place] [address] Joshua Brooks M.D. [address] [place] [phone] Discharge Disposition: Home or Self Care 02/18/2024 1:00 PM CDT Education Department of Neurology in [place], [place] [address] [place] [address] Joshua Brooks M.D. [address] [place] [phone] 02/18/2024 3:00 PM CDT Appointment Department of Radiology, [facility] in [place], [place] [address] [place] [address] Joshua Brooks M.D. [address] [place] [phone] 02/19/2024 1:00 PM CDT Appointment Department of Neurology in [place], [place] [address] [place] [address] Joshua Brooks M.D. [address] [place] [phone] Discharge Disposition: Home or Self Care 03/03/2024 10:00 AM CDT Comprehensive Visit Department of Neurologic Surgery in [place], [place] [address] [place] [address] Barrington Mercer M.D., Ph.D. [address] [place] [phone] documented as of this encounter Visit Diagnoses Not on filedocumented in this encounter
--- OUTSIDE RECORDS SUMMARY | 2024-02-17 10:01 | XMS_ITS | Clinical Summary ---
Author Organization [facility] Address [address] [place] [address] Care Team Providers Care Licensed Practical Nurse Name Role Phone Unavailable Primary Care Provider Unavailabl e Source Comments Patient records contain information from all sites at [facility]. For routine questions regarding patient records, call [phone] during business hours, M-F 8:00 AM - 5:00 PM Central Time. Record requests for emergency care only can be directed to [phone] at any time.[facility] Allergies Active Allergy Reactions Criticality Noted Date Comments Cat Dander Other (see comments) Medium 05/04/2018 Itchy watery, eyes, sneezing, swelling of eyes Dog Dander Other (see comments) Low 05/04/2018 Itchy watery, eyes, sneezing, swelling of eyes House Dust Mite Other (see comments) Low 05/04/2018 Sneezing/congestion [place] Pollen Itching Medium 05/04/2018 Itchy eyes, nose, [...] mg by mouth daily. 05/16/2022 Active vit C,W-Zy-mfyfc-lutein -zeaxan (PreserVision AREDS-2) 250-90-40-1 mg per capsule Take 1 tablet by mouth daily. 03/12/2022 Active biotin 1 mg tablet Take 10,000 mcg by mouth daily. Active Active Problems Problem Noted Date Diagnosed Date Tremor Essential 07/26/2019 Repeated Falls 07/26/2019 Encounters Date Type Department Care Team Description 02/13/2024 11:30 AM CDT Clinical Communication Virtual Review in [address] [phone] 01/06/2024 12:45 PM CDT Office Visit Department of Dermatology in [address] [phone] Peyton Ortega M.D. Keratosis Seborrheic Inflamed (Primary Dx); Nevi Multiple; Keratosis Seborrheic Discharge Disposition: Home or Self Care from Last 3 Months Family History Medical History Relation Name Comments Basal cell carcinoma Sister Relation Name Status Comments Sister Social History Tobacco Use Types Packs/Day Years Used Date Smoking Tobacco: Never Smokeless Tobacco: Never Alcohol Use Standard Drinks/Week Comments Yes 0 (1 standard drink = 0.6 oz pur e alcohol) [facility] Utilities Answer Date Recorded In the past 12 months has e [employer], gas, oil, or water [employer] threatened to shut off services in your [...] often do you attend chur ch or yazdanism services? More than 4 times per year 12/06/2022 Do you belong to any clubs o r organizations such as samaritan groups, unions, fraternal or athletic groups, or [...] your living situation today? I have a [facility] place to live 12/31/2023 Education Answer Date Recorded What is the highest level of school you have completed or the highest degree you have received? Master's degree (e.g., MA, MS, Lin, MEd, GREEN BUILDING ENERGY ENGINEER, JAKY) 02/10/2020 Sex and Gender Information Value Date Recorded Sex Assigned at Female 05/31/2021 9:13 PM CDT Gender Identity Female 02/10/2020 9:11 PM CDT Sexual Orientation Straight 02/10/2020 9: 11 PM CDT Last Filed Vital Signs Vital Sign Reading Time Taken Comments Blood Pressure 107/66 07/02/2021 1:34 PM TEACHING PASTOR Pulse 75 07/02/2021 1:34 PM TEACHING PASTOR Temperature 36.6 ??C (97.9 ??F) 02/15/2020 1:52 PM CD T Respiratory Rate - - Oxygen Saturation - - Inhaled Oxygen Concentration - - Weight 57.9 kg (127 lb 10.3 oz) 07/02/2021 1:34 PM TEACHING PASTOR Height - - Body Mass Index - - Plan of Treatment Upcoming Encounters Date Type Department Care Team (Latest Contact Info) Description 02/18/2024 8:00 AM CDT Comprehensive Visit Department of Neurology in [place], [place] [address] [place] [address] Joshua Brooks M.D. [address] [place] [phone] 02/18/2024 10:30 AM CDT Comprehensive Visit Department of Neurology in [place], [place] [address] [place] [address] Hu Gtz, Ph.D. [address] [place] [phone] 02/18/2024 11:45 AM CDT Appointment Department of Radiology, [facility], in [place], [place] [address] [place] [address] Joshua Brooks M.D. [address] [place] [phone] Discharge Disposition: Home or Self Care 02/18/2024 1:00 PM CDT Education Department of Neurology in [place], [place] [address] [place] [phone] Joshua Brooks M.D. [address] [place] [phone] 02/18/2024 3:00 PM CDT Appointment Department of Radiology, [facility] in [place], [place] [address] [place] [phone] Joshua Brooks M.D. [address] [place] [phone] 02/19/2024 1:00 PM CDT Appointment Department of Neurology in [place], [place] [address] [place] [phone] Joshua Brooks M.D. [address] [place] [phone] Discharge Disposition: Home or Self Care 03/03/2024 10:00 AM CDT Comprehensive Visit Department of Neurologic Surgery in [place], [place] [address] [place] [phone] Barrington Mercer M.D., Ph.D. [address] [place] [phone] Health Maintenance Due Date Last Done Comments Bone Density Scan (Osteoporo sis Screen) 1948 CT Colonography 1948 Colonoscopy 1948 FIT 1948 Fasting Glucose for Diabetes Screening 1950 Hepatitis C Screening 1950 Mammogram 1948 Depression Screening (Annual PHQ-2) 08/25/2023 Fall Risk Screen (Annual) 08/25/2023 COVID-19 Vaccine (8 - 2022-2 4 season) 2023 05/30/2023, 12/24/2022, 05/02/2022, Additional history exists Cologuard 05/23/2024 05/23/2021 Colorectal Cancer Screening 05/23/2024 DTaP,Tdap,and Td Vaccines (3 - Td or Tdap) 10/22/2027 10/22/2017, 10/20/2007 Pneumococcal vaccine (65+ years) Completed 01/02/20 17, 12/15/2014 Zoster Vaccines Completed 03/16/2018, 10/2017, 02/06/2009 Influenza Vaccine Completed 05/03/2023, , 06/05/2021, Additional history exists Medical Devices Implanted Type Area Lube Worker Device Identifier Shelf Expiration Date Model / Serial / Lot Hardware E.G. Pins/Screws/R ods Hardware e.g. pins/screws/ rods Right: Ankle
--- OUTSIDE RECORDS SUMMARY | 2024-02-17 10:01 | XMS_ITS | Encounter Summary ---
Author Organization [facility] Address [address] [place] [address] Care Team Providers Care Swimming Pool Servicer Name Role Phone Unavailable Primary Care Provider Unavailabl e Reason for Visit * Reason Comments Skin Check * Appointment Request (Routine) - Closed Specialty Diagnoses / Procedures Referred By Rosita jose Referred To Contact Dermatology Referral ID Status Reason Start Date Expiration Date Visits Re quested Visits Authorized [id number] Closed 08/28/2023 08/27/2024 1 1 Encounter Details Date Type Department Care Team (Late st Contact Info) Description 01/06/2024 12:45 PM CDT Office Visit Department of Dermatology in [address] [phone] Peyton Ortega M.D. [address] [place] [phone] Keratosis Seborrheic Inflamed (Primary Dx); Nevi Multiple; Keratosis Seborrheic Discharge Disposition: Home or Self Care Social History Tobacco Use Types Packs/Day Years Used Date Smoking Tobacco: Never Smokeless Tobacco: Never Alcohol Use Standard Drinks/Week Comments Yes 0 (1 standard drink = 0.6 oz pur e alcohol) [facility] Utilities Answer Date Recorded In the past 12 months has e electric, gas, oil, or water company threatened to shut off services in your [...] week 12/06/2022 How often do you attend [facility] or taoist services? More than 4 times per year 12/06/2022 Do you belong to any clubs o r organizations such as gnosticist groups, unions, fraternal or athletic groups, or [...] and heating? Not hard at all 12/06/2022 [facility] [place] of Occupat ional Health - Occupational Stress [...] your living situation today? I have a [facility] place to live 12/31/2023 Education Answer Date Recorded What is the highest level of school you have completed or the highest degree you have received? Master's degree (e.g., MA, MS, Lin, MEd, [employer], JAKY) 02/10/2020 Sex and Gender Information Value Date Recorded Sex Assigned at Female 05/31/2021 9:13 PM CDT Gender Identity Female 02/10/2020 9:11 PM CDT Sexual Orientation Straight 02/10/2020 9: 11 PM CDT documented as of this encounter Progress Notes * Peyton Ortega M.D. - 01/06/2024 12:45 PM CDT SUBJECTIVE CHIEF COMPLAINT / REASON FOR VISIT Full skin cancer screening HISTORY OF PRESENT ILLNESS Bryan Rivera is a pleasant 73 y.o. female who presents for a full skin cancer screening. The patient was last seen by me in Dermatology clinic on 12/10/22. She denies a personal history of skin cancer or family history for melanoma. Her sister has had non-melanoma skin cancer. She uses sunscreen.She denies any new or changing lesions today. MEDICAL HISTORY Negative for skin cancer Right upper paraspinal back: History of moderately atypical nevus, status post biopsy on 11/27/[address] Ortega at [facility] HISTORY Negative for melanoma Basal cell carcinoma in sister OBJECTIVE PHYSICAL EXAMINATION General: Awake, alert, in no acute distress, and with appropriate affect. Eyes: No scleral injection or icterus. No eyelid abnormalities. Lymph: No lower extremity edema. Skin: I have examined the scalp, face, neck, chest, abdomen, back, bilateral upper extremities, andbilateral lower extremities. My scribe (Maribel) served as a internal grinding machine operator for the entirety of the exam. Examination of the face, trunk and extremities reveals multiple benign-appearing nevi, lentigines and seborrheic keratoses. Examination of the left trapezius reveals a slightly irritated seborrhiec keratosis x 1. Examination today reveals no suspicious lesions for skin cancer. ASSESSMENT / PLAN #1 Left trapezius: Irritated seborrheic keratosis x 1 CONSENT Discussed the risks, benefits, alternatives, and the necessity of other members of the healthcare team participating in the procedure. All questions answered and consent given. PROCEDURE INFORMATION After discussion of the risks, benefits and alternatives to treatment with cryotherapy, informed consent was obtained. We treated a total of one lesion(s) with two 14-31-gyjfls freeze-thaw cycles of liquid nitrogen cryotherapy. The patient tolerated the procedure well. Aftercare instructions were provided in written and verbal form to the patient. Should any of these lesions recur, the patient should return for biopsy or further evaluation. Follow up in 1-2 months for recheck if these areas do not complete resolve. #2 Face, trunk and extremities: Multiple nevi and lentigines The ABCDE criteria for melanoma was reviewed with the patient. None of the patient's nevi reach theclinical threshold for biopsy. I recommend continued sun protection, self-skin examinations, and observation. Should any of the patient's nevi change in size, color, texture, or shape or develop symptoms such as itching or bleeding, I recommend an immediate return visit for reassessment. #3 Face, trunk and extremities: Seborrheic keratosis The benign nature of the skin lesion(s) was discussed with the patient. No treatment is required. Irecommend continued observation. Should this lesion change in size, color, texture, or shape or develop symptoms such as itching or bleeding, I recommend an immediate return visit for reassessment. PATIENT EDUCATION: Ready to learn. No apparent learning barriers were identified. Learning preferences include listening. Explained diagnosis and treatment plan; patient/guardian of patient expressed understanding of the content. By signing my name below, I, Maribel Ellsworth, attest that this documentation has been prepared underthe direction and in the presence of Peyton Ortega M.D. Electronically Signed: diane Bocanegra. 01/06/2024. 12:48 PM CDT. I, Peyton Ortega M.D., personally performed the services described in this documentation. All medical record entries made by the scribe were at my direction and in my presence. I have reviewed the chart and discharge instructions (if applicable) and agree that the record reflects my personal performance and is accurate and complete. Peyton Ortega M.D. Scribed for Peyton Ortega M.D. by Maribel Ellsworth, on 01/06/2024, 1:02 PM CDT. documented in this encounter Plan of Treatment Upcoming Encounters Date Type Department Care Team (Latest Contact Info) Description 02/18/2024 8:00 AM CDT Comprehensive Visit Department of Neurology in [place], [place] [address] [place] [address] Joshua Brooks M.D. [address] [place] [address] 02/18/2024 10:30 AM CDT Comprehensive Visit Department of Neurology in [place], [place] [address] [place] [address] Hu Gtz, Ph.D. [address] [place] [phone] 02/18/2024 11:45 AM CDT Appointment Department of Radiology, [facility] in [place], [place] [address] [place] [address] Joshua Brooks M.D. [address] [place] [phone] Discharge Disposition: Home or Self Care 02/18/2024 1:00 PM CDT Education Department of Neurology in [place], [place] [address] [place] [address] Joshua Brooks M.D. [address] [place] [phone] 02/18/2024 3:00 PM CDT Appointment Department of Radiology, [facility] in [place], [place] [address] [place] [address] Joshua Brooks M.D. [address] [place] [phone] 02/19/2024 1:00 PM CDT Appointment Department of Neurology in [place], [place] [address] [place] [address] Joshua Brooks M.D. [address] [place] [phone] Discharge Disposition: Home or Self Care 03/03/2024 10:00 AM CDT Comprehensive Visit Department of Neurologic Surgery in [place], [place] [address] [place] [address] Barrington Mercer M.D., Ph.D. [address] [place] [phone] documented as of this encounter Visit Diagnoses Diagnosis Keratosis Seborrheic Inflamed- Primary Nevi Multiple Keratosis Seborrheic documented in this encounter
--- OUTSIDE RECORDS SUMMARY | 2024-02-17 10:01 | XMS_ITS ---
Author Organization [facility] Address [address] [place] [address] Care Team Providers Care Associate Professor Of Management Name Role Phone Unavailable Unavailable Unavailable Surgery Details Not on file Complications Check Surgery Details section. Procedure Estimated Blood Loss Check Surgery Details section. Procedure Findings Check Surgery Details section. Procedure Specimens Taken Check Surgery Details section.
--- NOTE | 2024-02-17 10:15 | CRLHL7_ITS ---
For Patients: As a result of the Century Cures Act, medical imaging exams and procedure reports are released immediately into your electronic medical record. You may view this report before your referring provider. If you have questions, please contact your health care provider. BILATERAL SCREENING MAMMOGRAM WITH COMPUTER-AIDED DETECTION AND TOMOSYNTHESIS TECHNIQUE: CC and MLO views were obtained. These mammographic images have been obtained using full-field digital technique. These mammographic images were interpreted with the benefit of computer-aided detection. Breast tomosynthesis was used in this interpretation. COMPARISON FILM: 02/14/23, 02/11/22, 02/09/21. FINDINGS: There are scattered areas of fibroglandular density. IMPRESSION: There is no radiographic evidence for malignancy. ASSESSMENT: BI-RADS Category 1: Negative RECOMMENDATION: Routine screening mammogram in 1 year. A lay language report of this examination will be provided to the patient. ANTONY LEMUS M.D. Diagnostic Radiologist [email or web address] Transcribed: 11:[address]/Dictated by: Antony Lemus MD @ 02/24/2024 9:08:00 AM (Electronically Signed)
== END 2024-02-17 09:59 | disposition home or self-care (01) ==
LOC: MAMMO 09:59
PROVIDERS: PCP Internal Medicine; Visit Provider Internal Medicine
DX: Z12.31 Encounter for screening mammogram for malignant neoplasm of breast (principal)
CPT/HCPCS: 77063; 77067

== ENCOUNTER 2024-06-04 09:20 | Outpatient (CLI) | payer MEDICARE, SELFPAY ==
--- OUTSIDE RECORDS SUMMARY | 2024-06-05 15:56 | XMS_ITS | Clinical Summary ---
Author Organization [facility] Address [address] [place] [address] Care Team Providers Care Bath House Attendant Name Role Phone None Reported, Pcp Primary Care Provider Unavail able Source Comments Patient records contain information from all sites at [facility]. For routine questions regarding patient records, call [phone] during business hours, M-F 8:00 AM - 5:00 PM Central Time. Record requests for emergency care only can be directed to [phone] at any time.[facility] Allergies Active Allergy Reactions Criticality Noted Date Comments Cat Dander Other (see comments) Medium 05/04/2018 Itchy watery, eyes, sneezing, swelling of eyes Dog Dander Other (see comments) Low 05/04/2018 Itchy watery, eyes, sneezing, swelling of eyes House Dust Mite Other (see comments) Low 05/04/2018 Sneezing/congestion [place] Pollen Itching Medium 05/04/2018 Itchy eyes, nose, throat and sneezing Medications * This document contains information received from the source organization and may not represent a complete record from that organization. venlafaxine XR (Effexor-XR) 150 mg 24 hr capsule Take 150 mg by mouth daily with morning meal. Active fluticasone (FLONASE) 50 mcg/actuation nasal spray Administer 2 sprays into each nostril as needed for rhinitis or allergies. Active estradiol (ESTRACE) 0.1 mg/g (0.01%) vaginal cream Insert into the vagina 2 (two) times a week. 3 08/22/20 Active DENTAGEL 1.1 % gel Apply 1 Application to the mouth or throat daily. 0 09/24/19 Active alendronate (FOSAMAX) 70 mg tablet Take 70 mg by mouth once a week. Fridays06/04/20 Active calcium carbonate-vit rios D3 500 mg-3.125 mcg (125 unit) per tablet Take 1 tablet by mouth daily. 03/12/20 Active glucosamine HCl 500 mg tablet Take 500 mg by mouth daily. 03/12/20 Active propranoloL (InderaL LA) 60 mg 24 hr capsule Take 60 mg by mouth at bedtime. 05/16/20 Active rOPINIRole (REQUIP) 1 mg tablet Take 1 mg by mouth at bedtime. 05/16/20 Active vit C,E-Zn-coppr- lutein-zeaxan (PreserVision AREDS-2) 250-90-40-1 mg per capsule Take 1 tablet by mouth 2 (two) times a day. 03/12/20 Active loperamide (Imodium A-D) 2 mg capsule Take 1 capsule by mouth as needed for diarrhea. Active amoxicillin (AmoxiL) 500 mg capsule Take 4 capsules (2,000 mg total) by mouth as directed. Take 1 hour prior to dental procedures/basilio anings. 8 capsule 2 05/19/20 Active acetaminophen (TylenoL) 500 mg tablet Take 1,000 mg by mouth every 6 (six) hours as needed for pain. Active ibuprofen 200 mg tablet Take 2 tablets (400 mg total) by mouth every 6 (six) hours as needed for pain. Hold 1 week after surgery 05/28/20 24 Active primidone (Mysoline) 50 mg tablet Start at 200 mg in the AM and 250 in the PM, decreasing by 50 mg total dose per week following provided tapering template until down to 0. 325 tablet 06/02/20 24 Active cefadroxil (Duricef) 500 mg capsule Take 1 capsule (500 mg total) by mouth 2 (two) times a day for 7 days. 14 capsule 06/02/20 24 024 Active primidone (MYSOLINE) 250 mg tablet Take 1 tablet (250 mg total) by mouth 2 (two) times a day. 180 tablet 3 07/30/20 19 024 Discontinued cefadroxil (Duricef) 500 mg capsule Take 1 capsule (500 mg total) by mouth 2 (two) times a day for 5 days. 10 capsule 4 1:01 PM CDT 05/20/20 24 024 ibuprofen 200 mg tablet Take 400 mg by mouth every 6 (six) hours as needed for pain. 024 Discontinued oxyCODONE (Roxicodone) 5 mg immediate release tabletIndicat ions:Acute Pain Exception Take 0.5 tablets (2.5 mg total) by mouth every 4 (four) hours as needed for severe pain or score 7-10 of 10 (or for pain greater than comfort goal) Indication: Acute Pain Exception. 15 tablet 4 1:01 PM CDT 05/20/20 24 024 Discontinued( erapy completed) scopolamine base (Transderm-Sc op) 1 mg over [address] 1 patch on the skin every third day for 9 days. 3 patch 4 1:01 PM CDT 05/21/20 24 024 ondansetron (Zofran) 4 mg tablet Take 1 tablet (4 mg total) by mouth every 8 (eight) hours as needed for nausea or vomiting. 20 tablet 4 1:01 PM CDT 05/21/20 24 024 Discontinued( erapy completed) methocarbamoL (Robaxin) 750 mg tablet Take 1 tablet (750 mg total) by mouth 4 (four) times a day as needed for muscle spasms for up to 14 days. 56 tablet 4 6:34 PM CDT 05/25/20 24 024 Discontinued(Th erapy completed) Active Problems Problem Noted Date Diagnosed Date Tremor Essential 07/26/2019 Repeated Falls 07/26/2019 Anxiety 07/15/2011 Restless Leg Syndrome Osteoporosis Encounters Date Type Department Care Team Description 06/02/2024 10:30 AM CDT Office Visit Department of Neurologic Surgery in [place], [place] [address] [place] [phone] Barrington Mercer M.D., Ph.D. Tremor Essential (Primary Dx) 06/02/2024 8:00 AM CDT Education Department of Neurology in [place], [place] [address] [place] [phone] Barrington Mercer M.D., Ph.D. Dian Urbina M.D. Tremor Essential 05/25/2024 2:18 PM CDT Anesthesia Event [facility] [address] [place] [phone] Wes Luis M.D. 05/25/2024 1:11 PM CDT - 05/25/2024 3:12 PM CDT Surgery [facility] [address] [place] [phone] Barrington Mercer M.D., Ph.D. PLACEMENT NEUROSTIMULATOR, INFRACLAVICULAR SPACE. 05/25/2024 10:36 AM CDT - 05/25/2024 6:03 PM CDT Hospital Encounter [facility] [address] [place] [phone] Barrington Mercer M.D., Ph.D. Discharge Disposition: Home or Self Care 05/24/2024 Clinical Communication Department of Neurologic Surgery in [place], [place] [address] [place] [phone] Barrington Mercer M.D., Ph.D. Med Question 05/20/2024 1:00 PM CDT - 05/20/2024 11:59 PM CDT Hospital Encounter Department of Radiology, [facility], in [place], [place] [address] [place] [phone] Barrington Mercer M.D., Ph.D. Tremor Essential Discharge Disposition: Home or Self Care 05/20/2024 9:12 AM CDT Anesthesia Event [facility] [address] [place] [phone] Camilla Julien APRN, CRNA Licatino, Lauren K, M.D. 05/20/2024 7:25 AM CDT - 05/20/2024 12:30 PM CDT Surgery [facility] [address] [place] [phone] Barrington Mercer M.D., Ph.D. APPLICATION STEREOTACTIC HEAD FRAME, CTV to follow headframe placement. 05/20/2024 6:45 AM CDT - 05/20/2024 12:59 PM CDT Hospital Encounter Department of Radiology, [facility], in [place], [place] [address] [place] [phone] Barrington Mercer M.D., Ph.D. Tremor Essential Discharge Disposition: Home or Self Care 05/20/2024 5:56 AM CDT - 05/21/2024 1:03 PM CDT Hospital Encounter [facility], [facility], Ninth Floor [address] [place] [phone] Barrington Mercer M.D., Ph.D. Tremor Essential (Primary Dx) Discharge Disposition: Home or Self Care 05/19/2024 11:00 AM CDT Office Visit Department of Neurologic Surgery in [place], [place] [address] [place] [phone] Barrington Mercer M.D., Ph.D. Tremor Essential (Primary Dx) 05/19/2024 10:07 AM CDT - 05/19/2024 11:59 PM CDT Hospital Encounter Department of Laboratory Medicine and Pathology, [facility], in [place], [place] [address] [place] [phone] Barrington Mercer M.D., Ph.D. Tremor Essential Discharge Disposition: Home or Self Care 05/19/2024 Documentation Department of Neurologic Surgery in [place], [place] [address] [place] [phone] Rojelio San 05/10/2024 11:00 AM CDT Telemedicine Preoperative Evaluation Center in [place], [place] [address] [place] [phone] Barrington Mercer M.D., Ph.D. Sheree Tran, CAROLINE, C.N.P. Preanesthetic Medical Exam (Primary Dx); Tremor Essential; Repeated Falls; Snoring; Restless Leg Syndrome; Anxiety; Osteoporosis 04/29/2024 10:45 AM CDT Clinical Communication Virtual Review in [place], [place] [address] [place] [phone] Pre-visit Intake 04/27/2024 Clinical Communication Department of Neurologic Surgery in [place], [place] [address] [place] [phone] Barrington Mercer M.D., Ph.D. Question about dental cleaning 04/02/2024 3:00 PM CDT Ancillary Procedure Department of Neurology 03/24/2024 Clinical Communication Department of Neurologic Surgery in [place], [place] [address] [place] [phone] Barrington Mercer M.D., Ph.D. 03/09/2024 Documentation Department of Neurology in [address] [phone] Joshua Brooks M.D. Neurology DBS Conference from Last 3 Months Family History Medical History Relation Name Comments Parkinson disease Father Chip Nye Hyperlipidemia Father's Sister 1 Valborg Hypertension Father's Sister 1 Valborg Stroke Father's Sister 1 Valborg Hypertension Father's Sister 2 Matteson Stroke Father's Sister 2 Matteson Dementia Maternal Grandfather Kunal Diabetes Maternal Grandfather Kunal Genetic disease Maternal Grandfather Kunal Esse ntial tremor Dementia Mother Martha Genetic disease Mother Martha Essential tr emor Hyperlipidemia Mother Martha Hypertension Mother Martha Transient ischemic attack Mother Martha Arthritis Mother's Sister 1 Mare Colon cancer Mother's Sister 1 Mare Dementia Mother's Sister 1 Mare Transient ischemic attack Mother's Sister 1 Mare Arthritis Mother's Sister 2 Renetta Dementia Mother's Sister 2 Renetta Osteoporosis Mother's Sister 2 Renetta Arthritis Mother's Sister 3 Tilda Stroke Paternal Grandfather Omid Basal cell carcinoma Sister 1 Anxiety disorder Sister 2 Kary Depression Sister 2 Kary Hyperlipidemia Sister 2 Kary Hypertension Sister 2 Kary Skin cancer Sister 2 Kary Basal cell Genetic disease Sister 3 Alina Essential tr emor Hyperlipidemia Sister 3 Odilia Macias Hypertension Sister 3 Odilia Macias Skin cancer Sister 3 Odilia Macias basal cell Sleep apnea Sister 3 Odilia Macias Relation Name Status Comments Father Chip Nye Father's Sister 1 Vu Father's Sister 2 Matteson Maternal Grandfather Kunal Mother Martha Mother's Sister 1 Mare Mother's Sister 2 Renetta Mother's Sister 3 Tilda Paternal Grandfather Omid Sister 1 Sister 2 Kary Sister 3 Odilia Macias Social History Tobacco Use Types Packs/Day Years Used Date Smoking Tobacco: Never Passive Smoke Exposure: Never Smokeless Tobacco: Never Alcohol Use Standard Drinks/Week Comments Yes 4 (1 standard drink = 0.6 oz pure alcohol) Currently 3-4 glasses wine per week. (elimination diet) [facility] Utilities Answer Date Recorded In the past 12 months has e amcure, gas, oil, or water Synchronized threatened to shut off services in your [...] 12/06/2022 How often do you attend chur or quaker services? More than 4 times per year 12/06/2022 Do you belong to any clubs o r organizations such as denominational groups, unions, fraternal or athletic groups, or [...] and heating? Not hard at all 12/06/2022 [facility] - [...] your living situation today? I [address] a [facility] [address] to live 12/31/2023 Education Answer Date Recorded What is the highest level of school you have completed or the highest degree you have received? 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) 02/10/2020 Comments No Sex and Gender Information Value Date Recorded Sex Assigned at Female 05/31/2021 9:13 PM CDT Legal Sex Female 8:54 PM CAPONIZER Gender Identity Female 02/10/2020 9:11 PM CDT Sexual Orientation Straight 02/10/2020 9: 11 PM CDT Last Filed Vital Signs Vital Sign Reading Time Taken Comments Blood Pressure 152/72 05/25/2024 5:35 PM CDT Pulse 54 05/25/2024 5:40 PM CDT Temperature 36.7 ??C (98.1 ??F) 05/25/2024 4:30 PM CD T Respiratory Rate 14 05/25/2024 5:25 PM CDT Oxygen Saturation 96% 05/25/2024 5:40 PM CDT Inhaled Oxygen Concentration - - Weight 61.3 kg (135 lb 2.3 oz) 05/25/2024 11:03 AM CDT Height 165.1 cm (5' 5) 05/25/2024 11:03 AM CDT Body Mass Index 22.49 05/25/2024 11:03 AM CDT Plan of Treatment Health Maintenance Due Date Last Done Comments CT Colonography 1948 Colonoscopy 1948 FIT 1948 Hepatitis C Screening 1950 Mammogram 1948 Visit: Annual, age 65+ (or Medicare and <65) 1948 Visit: Medicare Annual Wellness 1948 Depression Screening (Annual PHQ-2) 08/25/2023 COVID-19 Vaccine (2023-09 5 season) 2024 12/24/2022, 05/02/2022, 12/03/2021, Additional history exists Cologuard 05/23/2024 05/23/2021 Colorectal Cancer Screening 05/23/2024 Influenza Vaccine (#1) 2024 , 06/07/2022, 06/05/2021, Additional history exists Fasting Glucose for Diabetes Screening 05/19/2027 05/19/2024 DTaP,Tdap,and Td Vaccines (3 - Td or Tdap) 10/22/2027 10/22/2017, 10/20/2007 Pneumococcal vaccine (65+ years) Completed 01/02/20, 12/15/2014 Zoster Vaccines Completed 03/16/2018, 10/2017, 02/06/2009 RSV vaccine - (32-3 6 weeks) or 60+ years Completed 06/23/2023 Fall Risk Screen (Annual) Completed 05/25/2024 Medical Devices Implanted Type Area Satellite Communications Operator Device Identifier Shelf Expiration Date Model / Serial / Lot Kt Dbs Vrc Bur H Cvr Nrmusc - [id number] Implanted:Qt y: 1 on 05/20/2024 by Barrington Mercer M.D., Ph.D. at [facility] Deep Brain Stimulator Encinal Motopia 03/31/2026 [id number] 00C0 / / [id number] Kt Ld Nrv Stm Vrc Railroad Hand 45 - [id number] Implanted:Qt y: 1 on 05/20/2024 by Barrington Mercer M.D., Ph.D. at [facility] Deep Brain Stimulator Encinal Motopia 03/08/2026 DB-2202- 45 / / [id number] Kt Dbs Vrc Bur H Cvr Nrmusc - [id number] Implanted:Qt y: 1 on 05/20/2024 by Barrington Mercer M.D., Ph.D. at [facility] Deep Brain Stimulator Encinal [employer]opia 03/31/2026 [id number] 00C0 / / [id number] Kt Ld Nrv Stm Vrc Railroad Hand 45 - [id number] Implanted:Qt y: 1 on 05/20/2024 by Barrington Mercer M.D., Ph.D. at [facility] Deep Brain Stimulator [employer] 03/08/2026 DB-2202- 45 / / [id number] Kt Ipg Vrc Gns R16 Dbs - [id number] Implanted:Qt y: 1 on 05/25/2024 by Barrington Mercer M.D., Ph.D. at [facility] Deep Brain Stimulator Right: Chest [employer] 03/18/2026 [id number] 160 / / [id number] Hardware E.G. Pins/Screws/ Rods Hardware e.g. pins/screws/rods Right: Ankle Scrw Ti Mtr Slv 1.55x2.55x5 - [id number] Implanted:Qt y: 1 on 05/20/2024 by Barrington Mercer M.D., Ph.D. at [facility] Hardware e.g. pins/screws/rods Depuy Synthes 04.503.1 05.01 / / Plt Mtr Cmf Adpt 5h - [id number] Implanted:Qt y: 1 on 05/25/2024 by Barrington Mercer M.D., Ph.D. at [facility] Hardware e.g. pins/screws/rods Right: Cranial Depuy Synthes 04.503.0 70 / / Scrw Ti Mtr Slv 1.55x2.55x4 - [id number] Implanted:Qt y: 2 on 05/25/2024 by Barrington Mercer M.D., Ph.D. at [facility] Hardware e.g. pins/screws/rods Right: Cranial Depuy Synthes 04.503.1 04.01 / / 2x8 Extension Kit 55 Cm - [id number] Implanted:Qt y: 1 on 05/25/2024 by Barrington Mercer M.D., Ph.D. at [facility] Responsive Neurostimulator Sys Right: Neck [employer] 02/15/2025 DB-3128- 55B / / [id number] Procedures Procedure Name Priority Date/Time Associated Diagnosis Comments AIRWAY MANAGEMENT Routine 05/25/2024 2:3 8 PM CDT PLACEMENT NEUROSTIMULATOR - INFRACLAVICULAR SPACE 05/25/2024 1:59 PM CDT Tremor Essential Case Notes Pen Tester 1050 CT HEAD WITHOUT IV CONTRAST RAD - Routine (most inpatients and all outpatients) 05/20/2024 4:00 PM CDT Tremor Essential FL FLUORO LESS THAN 1 HOUR RAD - Routine (most inpatients and all outpatients) 05/20/2024 2:41 PM CDT ADULT OXYGEN THERAPY Routine 05/20/2024 2:23 PM CDT IONM - MOVEMENT Routine 05/20/2024 10:[address] HEAD VENOGRAM STEREOTACTIC SEEG WITH IV CONTRAST RAD - Routine (most inpatients and all outpatients) 05/20/2024 9:27 AM CDT Tremor Essential PLACEMENT NEUROSTIMULATOR DEEP BRAIN 05/20/2024 8:45 AM CDT Tremor Essential APPLICATION STEREOTACTIC HEAD FRAME 05/20/2024 8:45 AM CDT Tremor Essential BASIC METABOLIC PANEL, S/P Routine 05/19/2024 10:35 AM CDT Tremor Essential CBC WITH DIFFERENTIAL, B Routine 05/19/2024 10:35 AM CDT Tremor Essential NEUROLOGY IMAGE EXAM Routine 04/02/2024 9:06 AM CDT from Last 3 Months Results * Airway (05/25/2024 2:38 PM CDT) Narrative Shanel Corona M.D. - 05/25/2024 2:38 PM CDT Shanel Corona M.D. ? 05/25/2024 ??2:52 PM Airway Date/Time: 05/25/2024 2:38 PM Performed by: Shanel Corona M.D. Authorized by: Wes Luis M.D. ?? Patient location during procedure: OR / Procedure Area PROCEDURE DETAILS: Mask difficulty assessment: easy mask Final airway type: supraglottic airway Device size: 4 Number of attempt to successful placement: 1 Supraglottic device: LMA unique ?? Supraglottic device size: 4 ?? Airway confirmation: bilateral breath sounds, positive ETCO2 and bilateral chest rise Other previous techniques attempted: none PRE PROCEDURE DETAILS: Pre evaluation for airway management: procedure Urgency: elective Preop assessment of probable difficulty: no difficulty anticipated Preoxygenation: bag valve mask SEDATION / ANESTHESIA Anesthesia method: anesthesia POST PROCEDURE DETAILS: ? Procedure outcome: successful ?? Notable Events: no complications us Wes Luis M.D. ANESTHESIA ORDERABLES Final Result * CT Head without IV Contrast (05/20/2024 4:00 PM CDT) Anatomical Region Laterality Modality Head, Neuroradiology RST LOS , Neuroradiology ARZ LOS, Neuroradiology FLA LOS N/A Computed Tomography, Compute d Tomography 05/20/2024 4:05 PM CDT Impressions 05/20/2024 4:24 PM CDT Expected postoperative changes of bilateral DBS placement. No immediate complication. Narrative 05/20/2024 4:24 PM CDT EXAM: CT HEAD WITHOUT IV CONTRAST COMPARISON: CT head 05/20/2024 at 9:00 AM FINDINGS: Stereotactic CT performed for post DBS placement. Interval placement of bilateral frontal approach bilateral deep brain stimulator leads with tips terminating along the inferior aspects of the thalami. Small volume expected pneumocephalus over the anterior frontotemporal convexities. No appreciable acute intracranial hemorrhage, mass effect, or midline shift. 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 Procedure Note Izabel Palomares M.D. - 05/20/2024 EXAM: CT HEAD WITHOUT IV CONTRAST COMPARISON: CT head 05/20/2024 at 9:00 AM FINDINGS: Stereotactic CT performed for post DBS placement. Interval placement of bilateral frontal approach bilateral deep brainstimulator leads with tips terminating along the inferior aspects of thethalami. Small volume expected pneumocephalus over the anteriorfrontotemporal convexities. No appreciable acute intracranial hemorrhage, mass effect, or midline shift.Redemonstration of scattered chronic progressive low hypodensitiesincluding a focal hypoattenuation along the anterior right gangliocapsularregion, likely sequela of chronic infarct. IMPRESSION: Expected postoperative changes of bilateral DBS placement. No immediatecomplication. us Barrington Mercer M.D., Ph.D. IMG CT PROCEDURES Final Result * FL Fluoro Less Than 1 Hour (05/20/2024 2:41 PM CDT) Narrative 152 HOS LOS RST - 05/20/2024 2:42 PM CDT This exam does not require a radiologist review or interpretation. Please refer to the patient's medical record on this date for clinical details. us Kelvin Washington M.D. IMG FLUOROSCOPY PROCED URES Final Result 152 HOS LOS RST * IONM - Movement (05/20/2024 10:11 AM CDT) Narrative Joshua Brooks M.D. - 05/20/2024 10:11 AM CDT Cassidy Aleman M.BLauraB.S. ? 05/20/2024 ??5:37 PM IONM - Movement Performed by: Cassidy Aleman M.BLauraB.S. Authorized by: Barrington Mercer M.D., Ph.D. ?? Barrington Mercer M.D., Ph.D. PROCEDURE/MINOR SURGICA L ORDERABLES Final Result * CT Head Venogram Stereotactic SEEG with IV Contrast (05/20/2024 9:27 AM CDT) Anatomical Region Laterality Modality Head, Neuroradiology RST LOS , Neuroradiology ARZ LOS, Neuroradiology FLA LOS N/A Computed Tomography, Compute d Tomography Impressions 05/20/2024 9:55 AM CDT Images acquired for preoperative planning. No acute findings. Narrative 05/20/2024 9:[address] Melendez confirmed on 05/21/24 they were inadvertently added as a report contributor, and their name has been removed. EXAM: CT HEAD VENOGRAM STEREOTACTIC SEEG WITH IV CONTRAST COMPARISON: None FINDINGS: Images acquired for preoperative planning with stereotactic head frame in place without fiducials. There are 4 anchors along the calvarium with associated small volume soft tissue emphysema. Superficial and deep venous sinuses are patent without thrombosis. Remainder of the imaged intracranial contents are within normal limits and unchanged from MRI 02/18/2024. Mild generalized parenchymal volume loss with ex vacuo dilatation of the ventricular system. Degenerative changes of the cervical spine. Bilateral intraocular lens implants. Hyperostosis frontalis interna. 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 Barrington Mercer M.D., Ph.D. IMG CT PROCEDURES Final Result * CBC with Differential, Blood (05/19/2024 10:35 AM CDT) Hemoglobin 13.4 11.6 - 15.0 g/dL 05/19/2024 11:37 AM CDT DTL Hematocrit 41.4 35.5 - 44.9 % 05/19/2024 11:37 AM CDT DTL Erythrocytes 4.34 3.92 - 5.13 x10(12)/L 05/19/2024 11:37 AM CDT DTL MCV 95.4 78.2 - 97.9 fL 05/19/2024 11:37 AM CDT DTL RBC Distrib Width 13.5 12.2 - 16.1 % 05/19/2024 11:37 AM CDT DTL Platelet Count 241 157 - 371 x10(9)/L 05/19/2024 11:37 AM CDT DTL Leukocytes 3.9 3.4 - 9.6 x10(9)/L 05/19/2024 11:37 AM CDT DTL Neutrophils 2.20 1.56 - 6.45 x10(9)/L 05/19/2024 11:37 AM CDT DHPM Lymphocytes 1.20 0.95 - 3.07 x10(9)/L 05/19/2024 11:37 AM CDT DTL Monocytes 0.33 0.26 - 0.81 x10(9)/L 05/19/2024 11:37 AM CDT DTL Eosinophils 0.11 0.03 - 0.48 x10(9)/L 05/19/2024 11:37 AM CDT DTL Basophils 0.04 0.01 - 0.08 x10(9)/L 05/19/2024 11:37 AM CDT DTL Blood (Blood, Venous) 05/19/2024 10:35 AM CDT 05/19/2024 10:56 AM CDT us Barrington Mercer M.D., Ph.D. LAB BLOOD ADD-ON Final Result [facility] [address] [place] [address], [place] DTL [facility] [place][note 2] [address] [place] [address] [facility] [address] [place] [address] * (ABNORMAL) Basic Metabolic Panel (05/19/2024 10:35 AM CDT) Potassium, S 4.4 3.6 - 5.2 mmol/L 05/19/2024 2:23 PM CDT DTL Sodium, S 140 135 - 145 mmol/L 05/19/2024 2:23 PM CDT DTL Chloride, S 102 98 - 107 mmol/L 05/19/2024 2:23 PM CDT DTL Bicarbonate, S 30(H) 22 - 29 mmol/L 05/19/2024 2:23 PM CDT DTL Anion Gap 8 7 - 15 05/19/2024 2:23 PM CDT DTL BUN (Blood Urea Nitrogen), S 15 6 - 21 mg/dL 05/19/2024 2:23 PM CDT DTL Creatinine 0.62 0.59 - 1.04 mg/dL 05/19/2024 2:23 PM CDT DTL Estimated GFR (eGFR) >90 >=60 mL/min/BSA 05/19/2024 2:23 PM CDT DTL Comment: Estimated GFR calculated using the 2020 CKD_EPI creatinine equation. Calcium, Total, S 8.6(L) 8.8 - 10.2 mg/dL 05/19/2024 2:23 PM CDT DTL Glucose, S 79 70 - 140 mg/dL 05/19/2024 2:23 PM CDT DTL Blood (Blood, Venous) 05/19/2024 10:35 AM CDT 05/19/2024 1:53 PM CDT Barrington Mercer M.D., Ph.D. LAB BLOOD ADD-ON Final Result Performing Organization Address City/[facility]/ZIP Co de Phone Number [facility] [address] [place] [address], [place] DTL [facility] [place][note 2] [address] [place] [address] * Tuesday, April 02, 2024 8:52:07 AM CDT-Neurology Image Exam (04/02/2024 9:06 AM CDT) Narrative [facility] - 04/02/2024 9:06 AM CDT This order has been created and auto-finalized to support the import of images acquired without order. The clinical documentation to support these images can be found on the encounter that produced images. Provider Not In System IMG NON RAD IMAGING PROCE DURES Final Result Performing Organization Address City/[facility] Co de Phone Number [facility] NA from Last 3 Months Insurance [facility] Advance Directives For more information, please contact: [phone] * Full Code (Latest Code Status on File) Date Activated Date Inactivated Comments 05/20/2024 3:07 PM 05/21/2024 3:09 PM Question Answer Comments Full Code: Not Discussed Due to: Patient not available Care Teams Bath House Attendant Relationship Specialty Start Date End Date None Reported, Pcp PCP - General Family Medicine 05/25/24
--- OUTSIDE RECORDS SUMMARY | 2024-06-05 15:57 | XMS_ITS | Referral Summary ---
Author Organization [facility] Address [address] [place] [address] Care Team Providers Care Chief Medical Officer Name Role Phone None Reported, Pcp Primary Care Provider Unavail able Source Comments Patient records contain information from all sites at [facility]. For routine questions regarding patient records, call [phone] during business hours, M-F 8:00 AM - 5:00 PM Central Time. Record requests for emergency care only can be directed to [phone] at any time.[facility] Encounters Date Type Department Care Team Description 06/02/2024 10:30 AM CDT Office Visit Department of Neurologic Surgery in [place], [place] [address] [place] [address] Barrington Mercer M.D., Ph.D. Tremor Essential (Primary Dx) 06/02/2024 8:00 AM CDT Education Department of Neurology in [place], [place] [address] [place] [address] Barrington Mercer M.D., Ph.D. Dian Urbina M.D. Tremor Essential 05/25/2024 2:18 PM CDT Anesthesia Event [facility] OR [address] [place] [address] Wes Luis M.D. 05/25/2024 1:11 PM CDT - 05/25/2024 3:12 PM CDT Surgery [facility] OR [address] [place] [phone] Barrington Mercer M.D., Ph.D. PLACEMENT NEUROSTIMULATOR, INFRACLAVICULAR SPACE. 05/25/2024 10:36 AM CDT - 05/25/2024 6:03 PM CDT Hospital Encounter [facility] [address] [place] [phone] Barrington Mercer M.D., Ph.D. Discharge Disposition: Home or Self Care 05/24/2024 Clinical Communication Department of Neurologic Surgery in [place], [place] [address] [place] [phone] Barrington Mercer M.D., Ph.D. Med Question 05/20/2024 5:56 AM CDT - 05/21/2024 1:03 PM CDT Hospital Encounter [facility], [facility], Ninth Floor [address] [place] [phone] Barrington Mercer M.D., Ph.D. Tremor Essential (Primary Dx) Discharge Disposition: Home or Self Care 05/20/2024 9:12 AM CDT Anesthesia Event [facility] MA[facility] OR [address] [place] [phone] Camilla Julien APRN, CRNA Licatino, Lauren K, M.D. 05/20/2024 1:00 PM CDT - 05/20/2024 11:59 PM CDT Hospital Encounter Department of Radiology, [facility], in [place], [place] [address] [place] [phone] Barrington Mercer M.D., Ph.D. Tremor Essential Discharge Disposition: Home or Self Care 05/20/2024 6:45 AM CDT - 05/20/2024 12:59 PM CDT Hospital Encounter Department of Radiology, [facility], in [address] [phone] Barrington Mercer M.D., Ph.D. Tremor Essential Discharge Disposition: Home or Self Care 05/20/2024 7:25 AM CDT - 05/20/2024 12:30 PM CDT Surgery [facility] OR [address] [place] [phone] Barrington Mercer M.D., Ph.D. APPLICATION STEREOTACTIC HEAD FRAME, CTV to follow headframe placement. 05/19/2024 Documentation Department of Neurologic Surgery in [place], [place] [address] [place] [phone] Rojelio San 05/19/2024 10:07 AM CDT - 05/19/2024 11:59 PM CDT Hospital Encounter Department of Laboratory Medicine and Pathology, [facility] in [place], [place] [address] [place] [phone] Barrington Mercer M.D., Ph.D. Tremor Essential Discharge Disposition: Home or Self Care 05/19/2024 11:00 AM CDT Office Visit Department of Neurologic Surgery in [place], [place] [address] [place] [phone] Barrington Mercer M.D., Ph.D. Tremor Essential (Primary Dx) 05/10/2024 11:00 AM CDT Telemedicine Preoperative Evaluation Center in [place], [place] [address] [place] [phone] Barrington Mercer M.D., Ph.D. Sheree Tran, FIRE ENGINEER, C.N.P. Preanesthetic Medical Exam (Primary Dx); Tremor Essential; Repeated Falls; Snoring; Restless Leg Syndrome; Anxiety; Osteoporosis 04/29/2024 10:45 AM CDT Clinical Communication Virtual Review in [place], [place] [address] [place] [address] Pre-visit Intake 04/27/2024 Clinical Communication Department of Neurologic Surgery in [place], [place] [address] [place] [phone] Barrington Mercer M.D., Ph.D. Question about dental cleaning 04/02/2024 3:00 PM CDT Ancillary Procedure Department of Neurology 03/24/2024 Clinical Communication Department of Neurologic Surgery in [place], [place] [address] [place] [address] Barrington Mercer M.D., Ph.D. 03/09/2024 Documentation Department of Neurology in [place], [place] [address] [place] [address] Joshua Brooks M.D. Neurology DBS Conference from Last 3 Months Allergies Active Allergy Reactions Criticality Noted Date Comments Cat Dander Other (see comments) Medium 05/04/2018 Itchy watery, eyes, sneezing, swelling of eyes Dog Dander Other (see comments) Low 05/04/2018 Itchy watery, eyes, sneezing, swelling of eyes House Dust Mite Other (see comments) Low 05/04/2018 Sneezing/congestion [place] Pollen Itching Medium 05/04/2018 Itchy eyes, nose, [...] 2 (two) times a week. 3 08/22/20 18 Active DENTAGEL 1.1 % gel Apply 1 Application to the mouth or throat daily. 0 09/24/19 19 Active alendronate (FOSAMAX) 70 mg tablet Take 70 mg by mouth once a week. Fridays06/04/20 22 Active calcium carbonate-vit rios D3 500 mg-3.125 mcg (125 unit) per tablet Take 1 tablet by mouth daily. 03/12/20 22 Active glucosamine HCl 500 mg tablet Take 500 mg by mouth daily. 03/12/20 22 Active propranoloL (InderaL LA) 60 mg 24 hr capsule Take 60 mg by mouth at bedtime. 05/16/20 22 Active rOPINIRole (REQUIP) 1 mg tablet Take [...] dental procedures/basilio anings. 8 capsule 2 05/19/20 24 Active acetaminophen (TylenoL) 500 mg tablet Take [...] 6 (six) hours as needed for pain. Discontinued oxyCODONE (Roxicodone) 5 mg immediate release [...] 4 6:34 PM CDT 05/25/20 24 024 Discontinued( erapy completed) Active Problems Problem Noted Date Diagnosed Date Tremor Essential 07/26/2019 Repeated Falls 07/26/2019 Anxiety 07/15/2011 Restless Leg Syndrome Osteoporosis Social History Tobacco Use Types Packs/Day Years Used Date Smoking Tobacco: Never Passive Smoke Exposure: Never Smokeless Tobacco: Never Alcohol Use Standard Drinks/Week Comments Yes 4 (1 standard drink = 0.6 oz pure alcohol) Currently 3-4 glasses wine per week. (elimination diet) [facility] Utilities Answer Date Recorded In the past 12 months has e [employer], [employer], oil, or water [employer] threatened to shut off services in your [...] How often do you attend chur or scientologist services? More than 4 times per year 12/06/2022 Do you belong to any clubs o r organizations such as spiritism groups, unions, fraternal or athletic groups, or [...] and heating? Not hard at all 12/06/2022 [facility] - Occupational Stress [...] your living situation today? I have a [facility] place to live 12/31/2023 Education Answer Date Recorded What is the highest level of school you have completed or the highest degree you have received? 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 at [facility] Deep Brain Stimulator [employer] 03/31/2026 [id number] / / [id number] Kt Ld Nrv Stm Vrc File Drawer Finisher 45 - [id number] 2 Implanted:Qt y: 1 on 05/20/2024 by Barrington Mercer M.D., Ph.D. at [facility] Deep Brain Stimulator [employer] 03/08/2026 [id number]-2202- 45 / / [id number] Kt Dbs Vrc Bur H Cvr Nrmusc - [id number] 2 Implanted:Qt y: 1 on 05/20/2024 by Barrington Mercer M.D., Ph.D. at [facility] Deep Brain Stimulator [employer] 03/31/2026 [id number] 00C0 / / [id number] Kt Ld Nrv Stm Vrc File Drawer Finisher 45 - [id number] 2 Implanted:Qt y: 1 on 05/20/2024 by Barrington Mercer M.D., Ph.D. at [facility] Deep Brain Stimulator [employer] 03/08/2026 DB-2202- 45 / / [id number] Kt Ipg Vrc Gns R16 Dbs - [id number] Implanted:Qt y: 1 on 05/25/2024 by Barrington Mercer M.D., Ph.D. at [facility] Deep Brain Stimulator Right: Chest [employer] 03/18/2026 [id number] 160 / / [id number] Hardware E.G. Pins/Screws/ Rods Hardware e.g. pins/screws/rods Right: Ankle Scrw Ti Mtr Slv 1.55x2.55x5 - [id number] 2 Implanted:Qt y: 1 on 05/20/2024 by Barrington Mercer M.D., Ph.D. at [facility] Hardware e.g. pins/screws/rods Depuy Synthes 04.503.1 05.01 / / Plt Mtr Cmf Adpt 5h - [id number] Implanted:Qt y: 1 on 05/25/2024 by Barrington Mercer M.D., Ph.D. at [facility] Hardware e.g. pins/screws/rods Right: Cranial Dep[employer] Synthes .503.0 70 / / Scrw Ti Mtr Slv 1.55x2.55x4 - [id number] Implanted:Qt y: 2 on 05/25/2024 by Barrington Mercer M.D., Ph.D. at [facility] Hardware e.g. pins/screws/rods Right: Cranial Depuy Synthes 503.1 04.01 / / 2x8 Extension Kit 55 Cm - [id number] Implanted:Qt y: 1 on 05/25/2024 by Barrington Mercer M.D., Ph.D. at [facility] Responsive Neurostimulator Sys Right: Neck [employer] 02/15/2025 [id number]-3128- [id number] / / [id number] Procedures Procedure Name Priority Date/Time Associated Diagnosis Comments AIRWAY MANAGEMENT Routine 05/25/2024 2:3 8 PM CDT PLACEMENT NEUROSTIMULATOR - INFRACLAVICULAR SPACE 05/25/2024 1:59 PM CDT Tremor Essential Case Notes Substation Operator Automatic 1050 CT HEAD WITHOUT IV CONTRAST RAD [...] outcome: successful ?? Notable Events: no complications Wes Luis M.D. ANESTHESIA ORDERABLES Final Result [...] changes of bilateral DBS placement. No immediatecomplication. Barrington Mercer M.D., Ph.D. IMG CT PROCEDURES Final Result * FL Fluoro Less Than 1 Hour (05/20/2024 2:41 PM CDT) Narrative 152 [facility] RST - 05/20/2024 2:42 PM CDT This exam does not require a radiologist review or interpretation. Please refer to the patient's medical record on this date for clinical details. Kelvin Washington M.D. IMG FLUOROSCOPY PROCED URES Final Result 152 [facility] RST * IONM - Movement (05/20/2024 10:11 AM CDT) Narrative Joshua Brooks M.D. - 05/20/2024 10:11 AM CDT Cassidy Aleman M.B.B.S. ? 05/20/2024 ??5:37 PM IONM - Movement Performed by: Cassidy Aleman M.B.B.S. Authorized by: Barrington Mercer M.D., Ph.D. ?? us Barrington Mercer M.D., Ph.D. PROCEDURE/MINOR SURGICA L [...] the left greater than right maxillary sinuses. us Barrington Mercer M.D., Ph.D. IMG CT PROCEDURES Final Result * CBC with Differential, Blood (05/19/2024 10:35 AM CDT) [facility] Hemoglobin 13.4 11.6 - 15.0 g/dL 05/19/2024 [...] M.D., Ph.D. LAB BLOOD ADD-ON Final Result [facility] [address] [place] [address], [place] DTL [facility] [address] [place] [address] [facility] [address] [place] [address] * (ABNORMAL) Basic Metabolic Panel (05/19/2024 10:35 [...] 10:35 AM CDT 05/19/2024 1:53 PM CDT us Barrington Mercer M.D., Ph.D. LAB BLOOD ADD-ON Final Result [facility] [address] [place] [address], [facility] [address] [place] [address] * Tuesday, April 02, 2024 8:52:07 AM CDT-Neurology Image Exam (04/02/2024 9:06 AM CDT) Narrative [facility] - 04/02/2024 9:06 AM CDT This order has been created and auto-finalized to support the import of images acquired without order. The clinical documentation to support these images can be found on the encounter that produced images. us Provider Not In System IMG NON RAD IMAGING PROCE DURES Final Result [facility] NA from Last 3 Months Insurance [facility] Advance Directives For more information, please contact: [phone] * Full Code (Latest Code Status on File) Date Activated Date Inactivated Comments 05/20/2024 3:07 PM 05/21/2024 3:09 PM Question Answer Comments Full Code: Not Discussed Due to: Patient not available Care Teams Chief Medical Officer Relationship Specialty Start Date End Date None Reported, Pcp PCP - General Family Medicine 05/25/24
--- OUTSIDE RECORDS SUMMARY | 2024-06-05 15:57 | XMS_ITS | Encounter Summary ---
Author Organization [facility] Address [address] [place] [id number] Care Team Providers Care Doper Name Role Phone None Reported, Pcp Primary Care Provider Unavail able Reason for Referral * Outpatient (Routine) - Pending Review Specialty Diagnoses / Procedures Referred By Contac t Referred To Contact Diagnoses Tremor Essential Procedures Deep brain stimulator (DBS) programming movement disorder - Nursing Dian Urbina M.D. [address] [place] [phone] Phone: tel: fax: [facility] Referral ID Status Reason Start Date Expiration Date V isits Requested Visits Authorized [id number] Pending Review 06/02/2024 06/02/2025 1 1 Encounter Details Date Type Department Care Team (Late st Contact Info) Description 06/02/2024 8:00 AM CDT Education Department of Neurology in [place], [place] [address] [place] [phone] Barrington Mercer M.D., Ph.D. [address] [place] [phone] Dian [place] [address] Tremor Essential Social History Tobacco Use Types Packs/Day Years Used Date Smoking Tobacco: Never Passive Smoke Exposure: Never Smokeless Tobacco: Never Alcohol Use Standard Drinks/Week Comments Yes 4 (1 standard drink = 0.6 oz pure alcohol) Currently 3-4 glasses wine per week. (elimination diet) [facility] Utilities Answer Date Recorded In the past 12 months has [employer], [employer], or water [employer] threatened to shut off services in your [...] How often do you attend chur or latter-day services? More than 4 times per year 12/06/2022 Do you belong to any clubs o r organizations such as caodaism groups, unions, fraternal or athletic groups, or [...] and heating? Not hard at all 12/06/2022 [facility] - [...] your living situation today? I have a [facility] place to live 12/31/2023 Education Answer Date Recorded What is the highest level of school you have completed or the highest degree you have received? 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 - 06/02/2024 8:00 AM CDT Images from the original note were not included. NURSING DBS CLINIC NOTE Mrs. Rivera is a 73 y.o.-year-old female who presents today for initial postoperative DBS system assessement and programming. Current DBS System Information: Electrode(s): bilateral Vim nucleus of the thalamus [employer] DB-2202-45 (Cartesia 8-contact field-steering) implanted on 05/20/2024. Associated IPG: [employer] Genus R16 (DB-1216) planned for implantation in right infraclavicular space on 05/25/2024. Mrs. Rivera says she did not notice a honeymoon period after surgery. She feels she is at her baseline tremor bilaterally. She is right handed. Will decrease Primidone by 50 mg weekly to 0. Today, her neurostimulator was interrogated, and a full monopolar review was performed. Please see the DBS flowsheets for full details. Due to her having some noted balance issues and dysmetria noticed on monopolar we opted to place elizabeth bipolar setting right away. Details regarding monopolar review are as follows: To see tremor we did have to use the mug bilaterally to notice the tremor. Configuration PW (uS) Rate (Hz) Ampl (V) Effects Side-Effects LEFT VIM C+, 1- 60 130 1.0 0.5 good benefit 1.0 no tremor 0.5-1.0 paraesthesia right fingers 1.0 mild dysmetria C+, 2- 60 130 2.0 0.5 some benefit 1.0 near resolution 1.5 no tremor 1.0 transient paraesthesia right fingers 1.5 persistent mild paraesthesia 2.0 mod dysmetria C+, 3- 60 130 2.0 1.0 great benefit 1.5 near resolution 2.0 no tremor 2.0 mod dysmetria C+ 4- 3.0 1.5 some benefit 2.0 near resolution 2.5 no tremor 3.0 mild dysmetria RIGHT VIM C+, 1- 60 130 1.5 1.0 near resolution 1.5 no tremor 1.0 transient paraesthesia fingers/left 1.5 moderate dysmetria C+, 2- 60 130 3.0 1.5 good benefit 2.0 near resolution 2.5 no tremor 2.5-3.0 mild paraesthesia C+, 3- 60 130 4.0 1.0 some benefit 1.5 great 2.0 near resolution 2.5 no tremor 4.0 paraesthesia left hand C+, 4- 60 130 4.0 1.5 great benefit 2.0 near resolution 2.5 no tremor None to 4.0 Stimulation settings: Electrode Impedance: Interval settings trialed this visit include: Configuration PW (uS) Rate (Hz) Ampl (V) Effects Side-Effects C+ 2a Anterior per katerin. 60 130 1.0 no tremor 0.5 transient paraesthesia right 1.5 mild dsymetria 2.0 severe dysmetria C+ 2b Post lateral 60 130 1.0 great resolution 1.5 no tremor 1.0 transient paraesthesia right 2.0 mild dysmetria C+ 2c 60 130 1.0 no tremor 1.0 dysmetria None steered looked better thanC+ 3 full ring Battery Voltage: RC Total interrogation/programming time today was: 120 minutes. Written information was provided and the patient freelance programmer/app developer was reviewed. Mrs. Rivera demonstrated ability to use the patient freelance programmer/app developer. She should not increase stimulation amplitude for two weeks. After that time she may begin gradual increases, one side per day as needed. She will turn her neurostimulator off around bedtime and back on in the morning. Dr. Dian Urbina also met with Mrs. Rivera. Please see those associated notes for additional details and recommendations. A return is planned in three months. * Dian Urbina M.D. - 06/02/2024 8:00 AM CDT SUBJECTIVE CHIEF COMPLAINT / REASON FOR VISIT: Essential tremor status post deep brain stimulation HISTORY OF PRESENT ILLNESS: Mrs. Rivera is a 73 y.o.-year-old female who recently underwent implantation of a DBS system as follows: Current DBS System: Electrode(s): bilateral Vim nucleus of the thalamus [employer] DB-2202-45 (Cartesia 8-contact field-steering) implanted on 05/20/2024. Associated IPG: [employer] Genus R16 (DB-1216) planned for implantation in right infraclavicular space on 05/25/2024. To briefly review, Mrs. Rivera Medically refractory essential tremor for which she underwent bilateral VM DBS. Neurologic monitoring during the case demonstrated Favorable micro electrode recordings, there was some paresthesia as well as dysmetria noted with intraoperative stimulation. She comes in to DBS clinic for her first followup after these procedures and tells me that She has been recovering well without any issues. Fortunately, Mrs. Rivera did not experience headache, excessive pain, cognitive changes, speech changes, or gait or balances changes. OBJECTIVE EXAM: For full details of Mrs. Rivera's standardized movement Disorders scale scores please see the nursing flowsheet of today's date. Post programming, she had no upper limb tremor remaining, there was a trace amount of intermittent head tremor variably present but much improved after programming, normal speech, Normal alternating movements in the upper and lower extremities, normal [id number], no dysmetria on [id number], slight overshoot on the right side with finger wolf, gait was just witha slightly varying width, but with turns she was good, we assessed her gait with stimulation off During which She was more unsteady with a more variable width base and ataxic turns. ASSESSMENT / PLAN #1 Essential tremor #2 Status post bilateral Vim nucleus of the thalamus deep brain stimulation, 2023 Mrs. Rivera has successfully undergone implantation of a stimulating system. I reviewed the postoperative imaging which shows good lead location bilaterally.; with the left lead being more posteriorly located in relation to the VM nucleus. We decided to go forward with parameter optimization today. A full monopolar review was performed with the assistance of nurse Rose Gonzalez. Full findings appear in her notes of today's date. In summary, we encountered similar side effects to what was observed intraoperatively with regards todysmetria and paresthesia especially involving the left-sided electrode. Steering did not increase the threshold to side effects. Ultimately, Mrs. Rivera's stimulator was set to bipolar settings on the left- sided electrode, and monopolar settings on the right side that were well tolerated and helpful for symptoms. Mrs. Hoff stimulator does have a range set within which she can adjust stimulation further upwards if needed and tolerated. We have asked her to make no changes to her settings for the next two weeks while her brain intitially adjusts to the effects of stimulation. We have advised her to turn her stimulator OFF at night and back ON in the morning. Regarding medications, she will begin the taper off of primidone, down by 50 mg per week till off. FOLLOW UP PLANS: We will plan to see the patient back in DBS Clinic for stimulator management in three months, or longer if the patient is doing well. If there are DBS-related concerns prior to that time the patient should reach out to our team by phone or portal and we will review the situation. Meanwhile, the patient will continue to follow periodically with her primary physician for non-DBS related care including medication management. Patient care / care coordination time on the date of encounter (excluding billed programming time):20 minutes. PATIENT EDUCATION Ready to learn, no apparent learning barriers were identified; learning preferences include listening. Explained diagnosis and treatment plan; patient expressed understanding of the content. documented in this encounter Plan of Treatment Scheduled Orders Name Type Priority Associated Diagnoses Orde r Schedule Deep brain stimulator (DBS) programming movement disorder - Nursing Neurology Routine Tremor Essential Expected: 09/02/2024, Expires: 09/02/2025 documented as of this encounter Visit Diagnoses Diagnosis Tremor Essential documented in this encounter Care Teams Doper Relationship Specialty Start Date End Date None Reported, Pcp PCP - General Family Medicine 05/25/24 documented as of this encounter
--- OUTSIDE RECORDS SUMMARY | 2024-06-05 15:57 | XMS_ITS | Encounter Summary ---
Author Organization [facility] Address [address] [place] [address] Care Team Providers Care Freight Service Inspector Name Role Phone Unavailable Primary Care Provider Unavailabl e Reason for Visit * Auth/Cert (Routine) Specialty Diagnoses / Procedures Referred By Contac t Referred To Contact Diagnoses Tremor Essential Tremor Essential [G25.0] Procedures HI INS CRNL PULSE GEN 2+ CONNECT APPLICATION STEREOTACTIC HEAD FRAME. CTV to follow headframe placement. PLACEMENT NEUROSTIMULATOR DEEP BRAIN - VIM Barrington Mercer M.D., Ph.D. [address] [place] [address] Phone: tel: fax: Referral ID Status Reason Start Date Expiration Date Visits Re quested Visits Authorized [id number] 1 1 Encounter Details Date Type Department Care Team (Latest Contact Info) Description 05/20/2024 5:56 AM CDT - 05/21/2024 1:03 PM CDT Hospital Encounter [facility], [facility], Ninth Floor [address] [place] [phone] Barrington Mercer M.D., Ph.D. [address] [place] [phone] Tremor Essential (Primary Dx) Discharge Disposition: Home or Self Care Social History Tobacco Use Types Packs/Day Years Used Date Smoking Tobacco: Never Passive Smoke Exposure: Never Smokeless Tobacco: Never Alcohol Use Standard Drinks/Week Comments Yes 4 (1 standard drink = 0.6 oz pure alcohol) Currently 3-4 glasses wine per week. (elimination diet) [facility] Utilities Answer Date Recorded In the past 12 months has [facility] [employer], oil, or water [employer] threatened to shut off services in your [...] week 12/06/2022 How often do you attend [facility] or orthodoxy services? More than 4 times per year 12/06/2022 Do you belong to any clubs o r organizations such as sikhism groups, unions, fraternal or athletic groups, or [...] heating? Not hard at all 12/06/2022 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 Gender Identity Female 02/10/2020 9:11 PM CDT Sexual Orientation Straight 02/10/2020 9: 11 PM CDT documented as of this encounter Last Filed Vital Signs Vital Sign Reading Time Taken Comments Blood Pressure 150/69 05/21/2024 12:20 PM CDT Pulse 71 05/21/2024 12:20 PM CDT Temperature 37 ??C (98.6 ??F) 05/21/2024 12:20 PM CDT Respiratory Rate 16 05/21/2024 12:20 PM CDT Oxygen Saturation 95% 05/21/2024 12:20 PM CDT Inhaled Oxygen Concentration - - Weight 62.3 kg (137 lb 5.6 oz) 05/20/2024 3:08 P M CDT Height 167.6 cm (5' 5.98) 05/20/2024 6:55 AM CD T Body Mass Index 22.18 05/20/2024 6:55 AM CDT documented in this encounter Discharge Summaries * Kelvin Washington M.D. - 05/21/2024 5:03 AM CDT DISCHARGE SUMMARY BRIEF OVERVIEW Hospital: [facility] Discharge Provider: Barrington Mercer M.D. Primary Team: T Neurologic Surgery - [place] No primary care provider on file. Primary Care Provider Phone Number: None Primary Care Provider Fax Number: None Other Providers: None Admission Date: 05/20/2024 Discharge Date: 05/21/2024 PRINCIPAL DIAGNOSIS Tremor Essential SECONDARY DIAGNOSES Principal Problem: Tremor Essential Resolved Problems: * No resolved hospital problems. * Surgery Information This Encounter Past Procedures (05/22/2023 to Today) Date Procedures Providers Loc / Dept 05/20/2024 APPLICATION STEREOTACTIC HEAD FRAME, CTV to follow headframe placement., PLACEMENT NEUROSTIMULATOR DEEP BRAIN, VIM. Barrington Mercer M.D., Ph.D.Roni Montoya M.D., M.H.S. RST ROMB OR DISCHARGE DISPOSITION Home or Self Care [1] ACTIVE ISSUES REQUIRING FOLLOW UP OUTPATIENT FOLLOW UP Scheduled Appointments 06/02/2024 8:00 AM [facility]; [facility] Neu[facility] 06/02/2024 10:30 AM Barrington Mercer M.D., Ph.D. Neurological Surgery For appointment details refer to your Patient Appointment Guide. TEST RESULTS PENDING AT DISCHARGE Pending Labs None DETAILS OF HOSPITAL STAY REASON FOR ADMISSION Tremor Essential HOSPITAL COURSE Bryan Rivera is a 73 y.o. female w PMH anxiety, fecal + urinary incontinence, restless leg syndrome, osteopenia, and essential tremor admitted 05/20/2024 for observation following bilateral DBS to VIM. Patient presented to clinic w complaints of chronic tremor (onset 1988) for which she had previously trialed and failed atenolol, propranolol, primidone, gabapentin, and topiramate. Tremor predominately affected hands. Offered DBS for essential tremor. Patient taken to OR 05/20/2024 for placement of bilateral DBS electrodes to VIM. Transferred postoperatively to general cares floor. At neuro baseline on transfer to floor. Postop head CT showed no evidence of tract hemorrhage. Patient remained medically stable overnight and was stable to discharge to self cares on 05/20/24. CONSULTS ORDERED DURING THIS ADMISSION None CONDITION AT DISCHARGE stable Discharge instructions were provided to the patient and caregiver(s). Total time spent in discharge services today: __ minutes. documented in this encounter Discharge Instructions * Attachments The following attachments cannot be sent through Care Everywhere. * Cefadroxil (By mouth) (Trinidadian) * Ondansetron (By mouth, Into the mouth) (Trinidadian) * Oxycodone, Rapid Release (By mouth) (Trinidadian) * Acute Pain and the Healing Process (Trinidadian) * Important Information About Opioid Medications (Trinidadian) * Scopolamine (Absorbed through the skin) (Trinidadian) documented in this encounter Medications at Time of Discharge acetaminophen (TylenoL) 500 mg tablet Take 1,000 mg by mouth every 6 (six) hours as needed for pain. alendronate (FOSAMAX) 70 mg tablet Take 70 mg by mouth once a week. Fridays06/04/2022 amoxicillin (AmoxiL) 500 mg capsule Take 4 capsules (2,000 mg total) by mouth as directed. Take 1 hour prior to dental procedures/cleani ngs. 8 capsule 2 05/19/2024 calcium carbonate-vitami n D3 500 mg-3.125 mcg (125 unit) per tablet Take 1 tablet by mouth daily. 03/12/2022 DENTAGEL 1.1 % gel Apply 1 Application to the mouth or throat daily. 0 09/24/2018 estradiol (ESTRACE) 0.1 mg/g (0.01%) vaginal cream Insert into the vagina 2 (two) times a week. 3 08/22/2018 fluticasone (FLONASE) 50 mcg/actuation nasal spray Administer 2 sprays into each nostril as needed for rhinitis or allergies. glucosamine HCl 500 mg tablet Take 500 mg by mouth daily. 03/12/2022 ibuprofen 200 mg tablet Take 2 tablets (400 mg total) by mouth every 6 (six) hours as needed for pain. Hold 1 week after surgery 05/28/2024 loperamide (Imodium A-D) 2 mg capsule Take 1 capsule by mouth as needed for diarrhea. propranoloL (InderaL LA) 60 mg 24 hr capsule Take 60 mg by mouth at bedtime. 05/16/2022 rOPINIRole (REQUIP) 1 mg tablet Take 1 mg by mouth at bedtime. 05/16/2022 venlafaxine XR (Effexor-XR) 150 mg 24 hr capsule Take 150 mg by mouth daily with morning meal. vit C,C-Zm-tmcys-lut ein-zeaxan (PreserVision AREDS-2) 250-90-40-1 mg per capsule Take 1 tablet by mouth 2 (two) times a day. 03/12/2022 cefadroxil (Duricef) 500 mg capsule Take 1 capsule (500 mg total) by mouth 2 (two) times a day for 5 days. 10 capsule 05/21/2024 1:01 PM CDT 05/20/2024 4 scopolamine base (Transderm-Scop) 1 mg over [address] 1 patch on the skin every third day for 9 days. 3 patch 05/21/2024 1:01 PM CDT 05/21/2024 4 methocarbamoL (Robaxin) 750 mg tablet Take 1 tablet (750 mg total) by mouth 4 (four) times a day as needed for muscle spasms for up to 14 days. 56 tablet 05/25/2024 6:34 PM CDT 05/25/2024 4 ondansetron (Zofran) 4 mg tablet Take 1 tablet (4 mg total) by mouth every 8 (eight) hours as needed for nausea or vomiting. 20 tablet 05/21/2024 1:01 PM CDT 05/21/2024 oxyCODONE (Roxicodone) 5 mg immediate release tabletIndication s:Acute Pain Exception Take 0.5 tablets (2.5 mg total) by mouth every 4 (four) hours as needed for severe pain or score 7-10 of 10 (or for pain greater than comfort goal) Indication: Acute Pain Exception. 15 tablet 05/21/2024 1:01 PM CDT 05/20/2024 4 primidone (MYSOLINE) 250 mg tablet Take 1 tablet (250 mg total) by mouth 2 (two) times a day. 180 tablet 3 07/30/2019 4 documented as of this encounter Progress Notes * Kelvin Washington M.D. - 05/21/2024 4:59 AM CDT Neurosurgery Progress Note SUBJECTIVE Bryan Rivera is a 73 y.o. female w PMH anxiety, fecal + urinary incontinence, restless leg syndrome, osteopenia, and essential tremor admitted 05/20/2024 for observation following bilateral DBS to VIM. Patient presented to clinic w complaints of chronic tremor (onset 1988) for which she had previously trialed and failed atenolol, propranolol, primidone, gabapentin, and topiramate. Tremor predominately affected hands. Offered DBS for essential tremor. Taken to OR 05/20/2024 for placement of b/lDBS leads to VIM; procedure uncomplicated. Transferred postop to general cares floor Hospital day 1 Interval Events NAEON, AVSS; afebrile; satting 95-98% on room air; SBPs 140s-150s; pulse 70s-80s AM rounds > largely restless night but was finally able to sleep around 0300 per her report. Indicates that immediate postop nausea may have improved somewhat w antiemetics but is still noticeablew attempt at PO intake and so she has been able to keep little down. Pain wel-controlled (0-4/10). OBJECTIVE Exam MS: AOx3 (self, location, year); follows commands appropriately Language: no dysarthria; no receptive or expressive aphasia CN: CN2 - VF intact to finger counting x4 quadrant (eyes tested jointly); CN3,4,6 - EOM w full ROM,gaze conjugate, no upgaze restriction; CN5 - V1-3 sensation symmetric, intact; CN7 - face, eye closure, smile symmetric; CN9,10 - palate elevation symmetric; CN11 - shrug symmetric; CN12 - tongue protrudes midline Motor: AG BUE + BLE wo drift; mild tremor in b/l hands and tremor involving neck Sensory: Endorses intact sensation BUE + BLE Intake/Output Summary (Last 24 hours) at 05/21/2024 0459 Last data filed at 05/21/2024 0321 Gross per 24 hour Intake 1440 ml Output 900 ml Net 540 ml Void: yes BM: Last BM Date: (Prior to admission) PO: small liquid only; has had emesis w PO attempt Drains: none ASSESSMENT / PLAN #1 Tremor Essential Plan AC: hold ISO recent surgery Abx: cefazolin 2g q8h x3 dose Analgesics: APAP 1g q6h; oxycodone 2.5/5 q4h PRN; hydromorphone 0.2mg q2h PRN for breakthrough Activity: Up Ad Ct;Up to Chair HOB: no restrictions BP: SBP <160mmHg Diet: Regular Drains/wound: no drains Consults: none Imaging: None Labs: noen N/V ppx: ondansetron 4q6h PRN; prochlorperazine 5q6h; Bowel Reg: scheduled senokot-S, scheduled Miralax, PRN bisacodyl suppository, PRN milk of magnesia Other reyes meds: ropinirole 1mg daily; propranolol 60mg dailoy; flonase PRN; primidone 250mg TID; CaCO3/vitD3 1250mg/200U daily; venlafaxine 150mg daily Dispo: General cares > dc today Primary: RST Neurologic Surgery - [place] Code: Full Code Please page Dr. Mercer's service at [phone] with any questions or concerns. Electronically signed by: Kelvin Washington M.D. 05/21/24 4:59 AM CDT * Kelvin Washington M.D. - 05/20/2024 6:26 PM CDT Neurosurgery Progress Note SUBJECTIVE Bryan Rivera is a 73 y.o. female w PMH anxiety, fecal + urinary incontinence, restless leg syndrome, osteopenia, and essential tremor admitted 05/20/2024 for observation following bilateral DBS to VIM. Patient presented to clinic w complaints of chronic tremor (onset 1988) for which she had previously trialed and failed atenolol, propranolol, primidone, gabapentin, and topiramate. Tremor predominately affected hands. Offered DBS for essential tremor. Taken to OR 05/20/2024 for placement of b/lDBS leads to VIM; procedure uncomplicated. Transferred postop to general cares floor Hospital day 0 Interval Events OR for placement of b/l DBS leads to VIM; procedure uncomplicated. Transferred postop to general cares floor At neuro baseline on floor Postop head CT wo evidence of tract hemorrhage PM rounds > reports nausea; has not tolerated PO intake yet OBJECTIVE Exam MS: AOx3 (self, location, year); follows commands appropriately Language: no dysarthria; no receptive or expressive aphasia CN: CN2 - VF intact to finger counting x4 quadrant (eyes tested jointly); CN3,4,6 - EOM w full ROM,gaze conjugate, no upgaze restriction; CN5 - V1-3 sensation symmetric, intact; CN7 - face, eye closure, smile symmetric; CN9,10 - palate elevation symmetric; CN11 - shrug symmetric; CN12 - tongue protrudes midline Motor: AG BUE + BLE wo drift; mild tremor in b/l hands and tremor involving neck Sensory: Endorses intact sensation BUE + BLE Intake/Output Summary (Last 24 hours) at 05/20/2024 1826 Last data filed at 05/20/2024 1535 Gross per 24 hour Intake 900 ml Output 0 ml Net 900 ml Void: yes BM: Last BM Date: (Prior to admission) PO: none since OR Drains: none ASSESSMENT / PLAN #1 Tremor Essential Plan AC: hold ISO recent surgery Abx: cefazolin 2g q8h x3 dose Analgesics: APAP 1g q6h; oxycodone 2.5/5 q4h PRN; hydromorphone 0.2mg q2h PRN for breakthrough Activity: Up Ad Ct;Up to Chair HOB: no restrictions BP: SBP <160mmHg Diet: Regular Drains/wound: no drains Consults: none Imaging: None Labs: noen N/V ppx: ondansetron 4q6h PRN; prochlorperazine 5q6h; Bowel Reg: scheduled senokot-S, scheduled Miralax, PRN bisacodyl suppository, PRN milk of magnesia Other reyes meds: ropinirole 1mg daily; propranolol 60mg dailoy; flonase PRN; primidone 250mg TID; CaCO3/vitD3 1250mg/200U daily; venlafaxine 150mg daily Dispo: General cares > dc 05/21 Primary: RST Neurologic Surgery - [place] Code: Full Code Please page Dr. Mercer's service at [phone] with any questions or concerns. Electronically signed by: Kelvin Washington M.D. 05/20/24 6:26 PM CDT * Colleen Varela Pharm.D., R.Ph. - 05/20/2024 7:52 AM CDT Images from the original note were not included. Admission Medication History Note Adherence issues: Reports missing a few doses a month Medication list source: Patient and Pharmacy or dispense records Medication related information: Mrs Rivera reports missing alendronate doses and estradiol cream doses. Prior to Admission Medications Med List Status: Pharmacy Complete Set By: Colleen Varela Pharm.D., R.Ph. at 05/20/2024 7:51 AM Taking? Last Dose Informant Start Date End Date LT acetaminophen (TylenoL) 500 mg tablet -- Self -- -- Take 1,000 mg by mouth every 6 (six) hours as needed for pain. alendronate (FOSAMAX) 70 mg tablet -- Self 06/04/22 -- Take 70 mg by mouth once a week. Fridays amoxicillin (AmoxiL) 500 mg capsule -- -- 05/19/24 -- Take 4 capsules (2,000 mg total) by mouth as directed. Take 1 hour prior to dental procedures/cleanings. calcium carbonate-vitamin D3 500 mg-3.125 mcg (125 unit) per tablet -- -- 03/12/22 -- Take 1 tablet by mouth daily. DENTAGEL 1.1 % gel -- Self 09/24/18 -- Apply 1 Application to the mouth or throat daily. estradiol (ESTRACE) 0.1 mg/g (0.01%) vaginal cream -- Self 08/22/18 -- Insert into the vagina 2 (two) times a week. fluticasone (FLONASE) 50 mcg/actuation nasal spray -- -- -- -- Administer 2 sprays into each nostril as needed for rhinitis or allergies. glucosamine HCl 500 mg tablet -- -- 03/12/22 -- Take 500 mg by mouth daily. ibuprofen 200 mg tablet -- Self -- -- Take 400 mg by mouth every 6 (six) hours as needed for pain. loperamide (Imodium A-D) 2 mg capsule -- -- -- -- Take 1 capsule by mouth as needed for diarrhea. primidone (MYSOLINE) 250 mg tablet () -- -- 07/30/19 04/29/24 Take 1 tablet (250 mg total) by mouth 2 (two) times a day. propranoloL (InderaL LA) 60 mg 24 hr capsule 05/18/2024 at 1999 -- 05/16/22 -- Take 60 mg by mouth at bedtime. rOPINIRole (REQUIP) 1 mg tablet -- -- 05/16/22 -- Take 1 mg by mouth at bedtime. venlafaxine (EFFEXOR) 150 mg 24 hr tablet -- -- -- -- Take 150 mg by mouth daily with morning meal. vit C,I-Ix-veqlv-lutein-zeaxan (PreserVision AREDS-2) 250-90-40-1 mg per capsule -- -- 03/12/22 -- Take 1 tablet by mouth 2 (two) times a day. documented in this encounter H&P Notes * Kelvin Washington M.D. - 05/20/2024 6:51 AM CDT INTERVAL HISTORY AND PHYSICAL PRE-PROCEDURE UPDATE H&P reviewed. The patient was examined and there are no significant changes to the H&P. Bryan Rivera is a 73 y.o. female w PMH anxiety, fecal + urinary incontinence, restless leg syndrome, osteopenia, and essential tremor admitted 05/20/24 for observation following bilateral DBS to VIM. Patient presented to clinic w complaints of chronic tremor (onset 1988) for which she had previously trialed and failed atenolol, propranolol, primidone, gabapentin, and topiramate. Tremor predominately affected hands. Offered DBS for essential tremor. Patient seen in preop. Consent confirmed. Site marked on b/l forehead. Examined. Questions answered. Patient notes that she consented for research protocol. Exam MS: AOx3 (self, location, year); follows commands appropriately; Language: no dysarthria; no receptive or expressive aphasia CN: CN2 - VF intact to finger counting x4 quadrant (eyes tested jointly); CN3,4,6 - EOM w full ROM,gaze conjugate, no upgaze restriction; CN5 - V1-3 sensation symmetric, intact; CN7 - face, eye closure, smile symmetric; CN9,10 - palate elevation symmetric; CN11 - shrug symmetric; CN12 - tongue protrudes midline Motor: AG BUE + BLE wo drift; mild tremor in b/l hands and tremor involving head/neck Sensory: Endorses intact sensation BUE + BLE Kelvin Washignton M.D. Source Note - Sheree Tran, CAROLINE, C.N.P. - 05/10/2024 11:00 AM CDT REASON FOR VISIT: Preoperative Medical Evaluation REFERRING PHYSICIAN: Barrington Mercer M.D., Ph.D. 05/25/2024: PLACEMENT NEUROSTIMULATOR - INFRACLAVICULAR SPACE; Barrington Mercer M.D., Ph.D. 05/20/2024: APPLICATION STEREOTACTIC HEAD FRAME; Barrington Mercer M.D., Ph.D. Surgery Specific Risk Classification: Elevated Risk SUBJECTIVE HISTORY OF PRESENT ILLNESS This Consult was conducted via real-time audio/video technology. This is a 73 y.o. female who is here for preanesthetic medical examination prior to the planned procedure as listed above. REVIEW OF SYSTEMS Neurological: Positive for loss of balance or tendency to fall easily. - Negative for seizures, loss of consciousness, light-headedness, numbness or shooting pain in hands, arms, legs, or feet, headaches, blackouts, slurred speech and weakness in arms or legs. The following systems were negative: Constitutional, Respiratory, Cardiovascular Cardiac Risk Scoring: RCRI Unable to Calculate DASI Calculations Flowsheet Row Telemedicine from 05/10/2024 in [facility] in [place], [place] DASI Total Score 36.7 Estimated V02 Peak 25.38 Estimated MET Level 7.25 OBJECTIVE OBJECTIVE PHYSICAL EXAMINATION General/Constitutional Constitutional Assessment: Normal General State of Health: Healthy appearing Neurological Neurologic Assessment: Alert and oriented X 3 Psychiatric Psychiatric Assessment: Calm Physical exam will be performed by anesthesia the day of procedure. ASSESSMENT / PLAN Anesthesia: Patient denies previous anesthesia related complications. Tobacco: Never Alcohol: One 5 oz glass of wine every other night. Recreational drug use: Denies. Airway Hx : None available LAB: CBC, BMP scheduled 05/19/2024 ECG: None available, not indicated. #1 Preanesthetic Medical Exam Pleasant 73-year-old female presents for video FERNANDO. She will be accompanied by her and daughter on the day of surgery. She is active going to [address] [place] [address], which is a senior center and working out for 15 minutes on the [employer] and then doing 10 minutes of rowing or 15 minutes on the treadmill followed by using 7 different weight machines. She does this at least twice weekly. Estimated MET level >7 per DASI. She denies cardiopulmonary symptoms with activity and at rest. Instructed to hold all vitamins, supplements, ibuprofen, and aspirin containing products for 7 daysprior to each surgery. #2 Tremor Essential Medically refractory upper limb and head tremors. Treated with primidone and propranolol, which shewill continue as prescribed. Surgery planned 05/20/2024 and 05/25/2024. #3 Repeated Falls Last fall 6 months ago; she turned, lost her balance, and fell onto her left side. No injuries at this time. It sounds like falls are a rare occurrence for her. She described other falls over the past few years when she broke bones, but these involved ice, snow, or bike riding. She endorses balanceissues, but if she is careful and mindful she has no issues. She believes her balance issues are related to her primidone. #4 Snoring Patient reports she recently spent the night in a hotel with her daughter who noticed that she was snoring but did not notice apnea or gasping. She was formally evaluated for sleep apnea approximately 10 years ago, which was negative, but she is considering repeating testing. #5 Restless Leg Syndrome Treated with ropinirole, continue as prescribed. #6 Anxiety and Mild Depression Treated with venlafaxine, continue as prescribed. #7 Osteoporosis Treated with alendronate, which she usually takes once weekly on Fridays. She will hold this on themorning of surgery. RECOMMENDATIONS: Patient medically optimized for planned procedure: Yes, pending any changes in health. Further Recommendations: None PATIENT EDUCATION: Instructions To Get Ready for Your Surgery or Procedure: [facility]?? 3596-07 rev 0124. Verbal instructions given on medication management before surgery. Reviewed instructions on avoiding aspirin, ibuprofen-containing medications, and supplements one week before surgery. Patient may take acetaminophen as needed for pain. Evening before your surgery: The evening before your procedure at about 8:15 p.m. [facility] will inform you of the time to arrive the next day using one of these methods: - A text -or- An automated phone call If you have not received a text or a phone call by 8:45 p.m. or if you prefer to call after 8:15 p.m. to get the information: - Please call [phone] (automated) or [phone] (live grinding machine operator) to learn report time for surgery next day. Phone system will ask for [facility] number and date of . Fasting for Adults: - 8 hours before your report time stop eating solid foods. - 6 hours before your report time stop drinking any non clear liquids such as: milk, soy/almond milk, orange juice, or tomato juice. - 1 hour before your report time stop drinking clear liquids. Clear Liquids: - Water, clear fruit juice (apple/white grape), carbonated beverages, clear broth, gelatin, ice pops or popsicles, and clear tea or black coffee (no milk or creamer). Consult conducted via real-time audio/video technology by Sheree Tran APRN, C.N.David in [facility] to the patient in the patient's home. documented in this encounter Procedure Notes * Cassidy Aleman M.B.BLauraS. - 05/20/2024 10:11 AM CDTAssociated Order(s): IONM - Movement Post-Procedure Diagnose(s): Tremor Essential Images from the original note were not included. IONM - Movement Performed by: Cassidy Aleman M.B.B.S. Authorized by: Barrington Mercer M.D., Ph.D. Neurophysiology Summary: Neurophysiologic monitoring and Functional brain stimulation mapping was performed to assist Dr. Barrington Mercer in the placement of deep brain stimulating electrode(s) in the bilateral Vim nucleus of the thalamus for treatment of Mrs. Rivera's medically refractory Essential tremor. The electrode targets and trajectories were planned on the computer workstation in conjunction withour Neurosurgery colleagues. The baseline exam showed: Moderate left arm postural tremor. Moderate left arm action tremor. Minimal right arm postural tremor. End-point right arm action tremor. Jaw tremor with some vocal tremor. Head tremor not visualized due to frame. No sensory disturbance. Normal speech. left Vim nucleus of the thalamus Microelectrode recording proceeed along the intended trajectory of the left Vim nucleus of the thalamus stimulating electrode. The microelectrode was advanced through a few mm of brain tissue at which point the microelectrode impedance was checked and found to be within acceptable limits. Analysis of background and single unit activity proceeded as the electrode was advanced deeper. At a depth of13mm from target large thalamic units were seen. These very large multi- cellular units continued until 2.5mm from target when the recording went very quiet. A volitional movement cell was seen to hand movement at 7mm from target. A tremor cell was noted at 6mm from target. Test stimulation was applied through the reference ring of the microelectrode, positioned at 5 mm above target, using a negative square wave pulse with 60 us duration, 130 Hz rate, and stimulation trains of up to 40 seconds. There was microlesional improvement in tremor. At an amplitude of 0.3mA there was mild hand paresthesia and tremor resolution with some dysmetria. Sensory side effect and dysmetria increased with increasing mA. We then tested at 7mm above target. There was sensory side effect at 1mA with dysmetria. Tremor control was noted from 0.6mA. Then, the permanently implantable left Vim nucleus of the thalamus stimulating electrode was inserted such that the bottom of the deepest contact rested at a depth of 2 mm above the originally planned target depth. After lead insertion, there was microlesional improvement in right arm tremor almostto cessation. Impedances were checked between all contact pairs on the lead and found to be within normal limits. Test stimulation then proceeded with contact 1-, 3+, pulse width of 60 microseconds, and rate of 130 hertz. At an amplitude of 0.3mA there was mild transient paresthesia and mild dysmetria. This increased at 0.6 and 1mA. Tremor was not significant at any mA. We then tested with contact 2-, 4+, pulse width of 60 microseconds, and rate of 130 hertz. There was transient sensory side effect at 1mA. Sensory side effect was more prominent at 1.5mA with dysmetria. Tremor was not noted ateither mA. It was decided not to move anterior due to excellent microelectrode recording and the possibility for anterior steering. The surgical team then secured the electrode into position. Electrode impedances were then rechecked and continued to be within normal limits. right Vim nucleus of the thalamus Microelectrode recording proceeed along the intended trajectory of the right Vim nucleus of the thalamus stimulating electrode. The microelectrode was advanced through a few mm of brain tissue at which point the microelectrode impedance was checked and found to be within acceptable limits. Analysisof background and single unit activity proceeded as the electrode was advanced deeper. At a depth of 13mm from target neuronal units were seen. High amplitude multi-cellular units were seen from 7mm from target. Kinesthetic cells were seen at 4 and 3mm from target. Tremor cells were noted at 4mm and 1mm from target. The background dropped around 0.5-1mm past target. Test stimulation was applied through the reference ring of the microelectrode, positioned at 2 mm above target, using a negative square wave pulse with 60 us duration, 130 Hz rate, and stimulation trains of up to 40 seconds. At an amplitude of 0.3mA there was mild tremor benefit. Tremor benefit increased up to 1.5mA. First sensory side effect was at 1.5mA. There was no noted dysmetria. Then, the permanently implantable right Vim nucleus of the thalamus stimulating electrode was inserted such that the bottom of the deepest contact rested at a depth of 0.5 mm below the originally planned target depth. After lead insertion, there was microlesional improvement in left arm tremor to amoderate degree. Impedances were checked between all contact pairs on the lead and found to be within normal limits. Test stimulation then proceeded with contact 1-, 3+, pulse width of 60 microseconds, and rate of 130 hertz. At an amplitude of 0.5mA there was mild tremor benefit. At 1mA transient sensory side effect occurred that was mild. This same degree of sensory side effect occurred at 1.5 and 2mA. Mild dysmetria was noted at 1.5 and 2mA. There was tremor resolution from 1mA. The surgical team then secured the electrode into position. Electrode impedances were then rechecked and continued to be within normal limits. Implanted system information Electrode(s): bilateral Vim nucleus of the thalamus [employer] [id number] (Cartesia 8-contact field-steering) implanted on 05/20/2024. Associated IPG: Breeze [employer] Genus R16 ([id number]) planned for implantation in right infraclavicular space on 05/25/2024. Post-op lead visualization General Post-op lead visualization in lead DBS reveals excellent lead location bilaterally. Both leads haveall four contacts within the VIM. The bottom contact on the right and bottom-2nd contacts on the left are adjacent to the efficacy hotspot. Stimulation at these contacts with concentric steering is likely to be most beneficial. The left lead is just posterior to the efficacy hotspot and anterior steering could be employed if sensory side effect is an issue. If the 3rd or 4th contacts are used on the right, lateral or postero-lateral steering may be useful. Orientation left Vim nucleus of the thalamus lead: Top radial orientation marker is approximately 210 degrees clockwise from anterior when viewed fromabove. right Vim nucleus of the thalamus lead: Top radial orientation marker is approximately 340 degrees clockwise from anterior when viewed fromabove. Total monitoring time was 4 hours and 00 minutes. Interpretation: The findings are consistent with successful placement of deep brain stimulating electrodes in the bilateral Vim nucleus of the thalamus. During outpatient programming, we would expectan excellent result. Cosigned by Joshua Brooks M.D. at 05/26/2024 1:54 PM CDT Associated attestation - Joshua Brooks M.D. - 05/26/2024 1:54 PM CDT I was present for the entire duration of the procedure. documented in this encounter Nursing Notes * Kait Romero R.N. - 05/21/2024 12:48 PM CDT Shift Goals: Clinical Goals for the Shift: Pt. will remain safe and free from falls Identify possible barriers to meeting goals/advancing plan of care: None End of Shift Summary: Patient is escorted by wheelchair and accompanied by family. IV removed. Prescriptions picked up at [facility] to take with them. Discharge education and AVS completed at bedside. All questions and concerns answered. No further questions at this time. Patient took all belongings with them. Problem: PAIN - ADULT Goal: PT VERBALIZES/DEMONSTRATES ADEQUATE COMFORT LEVEL OR BASELINE Outcome: Adequate for Discharge Problem: KNOWLEDGE DEFICIT Goal: Patient/family/caregiver demonstrates understanding of disease process, treatment plan, medications, and discharge instructions Outcome: Adequate for Discharge Problem: INFECTION - ADULT Goal: Absence of infection during hospitalization Outcome: Adequate for Discharge Problem: SKIN/TISSUE INTEGRITY Goal: Skin/Tissue integrity maintained or improved Outcome: Adequate for Discharge Goal: Oral and Nasal mucous membranes remain intact Outcome: Adequate for Discharge Problem: SAFETY ADULT Goal: Maintain a safe environment Outcome: Adequate for Discharge Problem: DISCHARGE PLANNING Goal: Patient discharge needs identified Outcome: Adequate for Discharge Problem: SAFETY ADULT - RISK FOR FALL AND OR FALL INJURY Goal: Patient remains free from fall/fall injury Outcome: Adequate for Discharge Electronically signed by: Kait Romero R.N. 05/21/24 12:49 PM CDT documented in this encounter OR Notes * Op Note - Barrington Mercer M.D., Ph.D. - 05/20/2024 10:44 AM CDT Pre-op Diagnosis Tremor Essential Post-op Diagnosis Tremor Essential Launch Operator A school bus driver/teacher assistant actively participated and was necessary for one or more of the following: opening, exposure and visualization, maintaining hemostasis, wound closure resulting in its safe and expeditious completion. Findings As expected Complications None Operative Note Narrative Mrs. Rivera was brought to the Pre-operative area, where a Leksell frame was applied, using local anesthetic to help with the pain. He then was taken to the CT scanner where a stereotactic scan was taken. This was coregistered to the preoperative MRI based plan on the stealth station. He was then brought to the operating room, positioned supine in a lawn chair position, and the Leksell frame was affixed to the bed using the Jean Baptiste. The CT to MRI fusion was confirmed, and the settings for the Leksell frame were obtained from the Syntax[employer] planning station. A planning fluoroscopic image was used to confirm a true lateral position of the Leksell, and the Leksell arc was used to determine entry sites. Independent incisions were planned for each entry sites. The arc was then removed, and thepatient's head was prepped and draped in the standard fashion. A commercial construction project manager-out was then performed. The planned incisions were infiltrated with local anesthetic (0.25% Bupivicane, and 1:200,000 of epinephrine). The appropriate X, Y, and Z as well as arc coordinates were doubly confirmed. The left- sided incision was then opened with a 10 blade and monopolar cautery. Bipolar cautery wasused on the scalp for hemostasis. The subgaleal space was dissected with a periosteal elevator. TheLeksell arc was then put back on, moved into position, and all settings for the planned trajectory were checked. The holger hole site was then determined by extending a cannula down to the bone. The Leksell Arc was then rotated forward, and a holger hole was made along with a countersinked profile of the DBS lead anchor ring using an (m8) match stick bit. The DBS anchor ring was then screwed into place. The lead fixation device was then confirmed to fit within the anchoring and close appropriately.The arc was then rotated back into the appropriate position, and the cannula was advanced to 15mm above target (penetrating the dura using monopolar cautery set at 30). MAPs were confirmed to be lessthan 90 before the pass. A osvaldo and Tisseel were placed into the bur hole to prevent CSF egress. Amicro electrode was then placed in situ and advanced toward target using the Socialbomb micro drive. For a full description of the micro electrode recording as well as test stimulation, please see the notes of my neurology colleague, Dr. Brooks, as well as scanned copies of the physiology notes in the patient's chart. We identified motion- tuned neurons, tremor cells, and no sensory cells. At the end of the microelectrode recording and test stimulation, an appropriate target was determined with 1 pass, and no additional passes necessary. The microelectrode was then raised back into the cannula and removed. The DBS lead was then advanced to this target depth. A fluoroscopic image was taken.Test stimulation was then performed to look for appropriate tremor reduction in the right hand, with no visual, motor, sensory, nor speech side effect indicating placement outside of the Vim nucleus,or inducing side effects outside of this region. The DBS lead was then advanced to this target depth the on the cannula tip, and test stimulation was performed, producing therapeutic effect without visual, motor, sensory, nor speech side effect. This depth was confirmed with fluoroscopy. The DBS lead was held by the lead calderón distally, while the cannula was slid out of the brain. Then the inner stylet of the DBS lead was removed, and the lead fixation device was clicked into place.The DBS lead was then freed from the micro drive, then the cannula was slid off the top of the DBS lead and the DBS lead was slid down beneath the arc while continuously holding the lead at the levelof the fixation device inside the holger hole. After threading the lead through the fixation device with the strain relief loop, a cap was then placed over the lead anchor ring and fixation device. Theappropriate DBS depth was then confirmed with fluoroscopy (with the 'band' indicator on the lead facing forward). The arc was then removed. Moving to the right side, the positions of the Leksell device were then moved to the determined X, Y, and Z, as well as arc coordinates on the right side. The entry site was then confirmed by extending a cannula down to the skin, and then the scalp was opened as planned. The subgaleal space was dissected with a periosteal elevator, dissecting posteriorly to make a pocket for the leads to be stored. The holger hole site was then determined by extending a cannula down to the bone. The Leksell Arc was then rotated forward, and a bur hole was made along with a countersinked profile of the DBS lead anchor ring using a match stick holger. The dura was opened with bipolar cautery and microscissors. An ECoG strip was slid posteriorly without issue. The DBSanchor ring was then screwed into place. The cannula was then advanced to 15 mm above target, penetrating the dura using monopolar cautery set at 30, along with bipolar cautery and microscissors to expand the dural opening and cut the arachnoid. MAPs were confirmed to be less than 90 before the pass. A osvaldo and Tisseel were placed into the bur hole to prevent CSF egress. A micro electrode was then placed in situ and advanced toward target using the Socialbomb micro drive. At the end of the microelectrode recording and test stimulation, an appropriate was target was determined with 1 pass, and no additional passes necessary. This depth was confirmed with fluoroscopy. The microelectrode was then raised back into the cannula and removed. The DBS lead was then advanced to this target depth, and test stimulation was performed to look forappropriate tremor reduction in the left hand (which was appropriately noted), with no side effectsindicating placement outside of the Vim, or inducing side effects outside of this region, with particular concern paid for side effects that might be induced by capsule stimulation. The ECoG strip was removed. The DBS lead, held by the lead calderón, while the cannula was slid out of the brain. The lead fixation device was clicked into place. Then the inner stylet of the DBS lead was removed. The DBS lead was then freed from the micro drive, then the cannula was slid off the top of the DBS lead and the DBSlead was slid down beneath the arc while continuously holding the lead at the level of the fixationdevice inside the holger hole. A cap was then placed over the lead anchor ring and fixation device. The appropriate DBS depth was then confirmed with fluoroscopy. The arc was then removed. Both leads were attached to the booties, with a silk tie denoting the left side, and tunneled posterior laterally to the right side, behind the ear. The incision was copiously irrigated with bacitracin impregnated saline. Vancomycin powder was then placed in the incision. 2-0 Vicryl interrupted subgaleal sutures were placed between 5 and 7 mm spacing to close the incision, with knot tying delayed until after all sutures were in place, to confirm no penetration or displacement superficially ofthe leads beneath. The superficial scalp incision was then closed using running 3 0 Vicryl Rapide. Bacitracin ointment was then placed over the incisions and the Leksell frame was taken off. Barrington Mercer M.D., Ph.D. documented in this encounter Miscellaneous Notes * Hospital Course - Gilmer, Kelvin Larsen M.D. - 04/07/2024 2:16 PM CDT Bryan Rivera is a 73 y.o. female w PMH anxiety, fecal + urinary incontinence, restless leg syndrome, osteopenia, and essential tremor admitted 05/20/2024 for observation following bilateral DBS to VIM. Patient presented to clinic w complaints of chronic tremor (onset 1988) for which she had previously trialed and failed atenolol, propranolol, primidone, gabapentin, and topiramate. Tremor predominately affected hands. Offered DBS for essential tremor. Patient taken to OR 05/20/2024 for placement of bilateral DBS electrodes to VIM. Transferred postoperatively to general cares floor. At neuro baseline on transfer to floor. Postop head CT showed no evidence of tract hemorrhage. Patient remained medically stable overnight and was stable to discharge to self cares on 05/20/24. documented in this encounter Plan of Treatment Not on file documented as of this encounter Procedures Procedure Name Priority Date/Time Associated Diagnosis Comments FL FLUORO LESS THAN 1 HOUR RAD - Routine (most inpatients and all outpatients) 05/20/2024 2:41 PM CDT ADULT OXYGEN THERAPY Routine 05/20/2024 2:23 PM CDT IONM - MOVEMENT Routine 05/20/2024 10:11 AM CDT Tremor Essential PLACEMENT NEUROSTIMULATOR DEEP BRAIN 05/20/2024 8:45 AM CDT Tremor Essential APPLICATION STEREOTACTIC HEAD FRAME 05/20/2024 8:45 AM CDT Tremor Essential documented in this encounter Results * FL Fluoro Less Than 1 Hour [...] - 05/20/2024 10:11 AM CDT Cassidy Aleman M.BLauraBLauraS. ? 05/20/2024 ??5:37 PM IONM - Movement Performed by: Cassidy Aleman M.BLauraB.S. Authorized by: Barrington Mercer M.D., Ph.D. ?? us Barrington Mercer M.D., Ph.D. PROCEDURE/MINOR SURGICA L ORDERABLES Final Result documented in this encounter Visit Diagnoses Diagnosis Tremor Essential- Primary Tremor Essential documented in this encounter Admitting Diagnoses Diagnosis Tremor Essential documented in this encounter Administered Medications Inactive Administered Medications - up to 3 most recent administrations Medication Order MAR Action Action Date Dose Rate Site acetaminophen injection 1,000 mg 1,000 mg, intravenous, at 400 mL/hr, Administer over 15 Minutes, Once as needed, other, If patient has not received in previous 6 hours, Starting on Gina 05/20/24 at 1423, For 1 dose, PACU (only), Oral unless RASS less than -1 or nausea/vomiting. Do not use if given in last 6 hours, Restriction Criteria (Pharmacy will review and approve if criteria met): Unable to take or tolerate medications administered via the enteral route or orally (not just NPO) New Bag 05/20/2024 2:28 PM CDT 1,000 mg 400 mL/hr acetaminophen tablet 1,000 mg (TylenoL) 1,000 mg, oral, 4 times daily, First dose on Gina 05/20/24 at 1700 Given 05/21/2024 7:36 AM CDT 1,000 mg Given 05/20/2024 9:47 PM CDT 1,000 mg Given 05/20/2024 5:08 PM CDT 1,000 mg benzocaine-menthoL 15-3.6 mg per lozenge 1 lozenge (CepacoL) 1 lozenge, oral, As needed, sore throat, throat irritation, Starting on Gina 05/20/24 at 1507 Given 05/21/2024 7:36 AM CDT 1 lozenge bisacodyL suppository 10 mg (Dulcolax) 10 mg, rectal, Daily PRN, constipation, Starting on Gina 05/20/24 at 1507, Ordered sequence of administration: polyethylene glycol, then bisacodyl until BM achieved. ceFAZolin injection 2 g (Ancef) 2 g, intravenous, Every 8 hours, First dose on Gina 05/20/24 at 2200, For 3 doses, Start within 8 hours of last IV dose. For immediate IV push administration, reconstitute vial per IVAG or package insert instructions. See IVAG for administration guidelines., Drug Monitoring Program: Pharmacist to adjust medication dosing based on indication and drug clearance factors., Indications: Prophylaxis, surgicalIndications:Prophylaxis, surgical Given 05/21/2024 5:02 AM CDT 2 g Given 05/20/2024 10:10 PM CDT 2 g fentaNYL injection 25 mcg (Sublimaze) 25 mcg, intravenous, Every 2 min PRN, moderate pain or score 4-6 of 10, severe pain or score 7-10 of 10, Starting on Gina 05/20/24 at 1423, PACU (only), Up to maximum total dose of 200 mcg Given 05/20/2024 2:32 PM CDT 25 mcg hydrALAZINE tablet 25 mg (Apresoline) 25 mg, oral, Every 6 hours PRN, high blood pressure; see admin instructions, Starting on Gina 05/20/24 at 1507, Hold for heart rate greater than 100 bpm. Keep systolic blood pressure less than 160 mmHg. HYDROmorphone (PF) injection 0.2 mg (Dilaudid) 0.2 mg, intravenous, Every 2 hour PRN, severe pain or score 7-10 of 10, Starting on Gina 05/20/24 at 1507, For breakthrough pain unrelieved 30 minutes after PRN pain medication is used. May administer IV pain medication concurrently with PRN oral medication if pain is greater than or equal to 7 in order to provide immediate relief. labetaloL injection 10 mg 10 mg, intravenous, Every 4 hours PRN, high blood pressure, SBP >160, Starting on Gina 05/20/24 at 1507 Given 05/21/2024 1:42 AM CDT 10 mg Lactated Ringer's 80 mL/hr, intravenous, Continuous, Starting on Gina 05/20/24 at 1530, For 12 hours New Bag 05/20/2024 3:35 PM CDT 80 mL/hr 80 mL/hr magnesium hydroxide suspension 30 mL (Milk of Magnesia) 30 mL, oral, Daily PRN, constipation, Starting on Gina 05/20/24 at 1507, Give if no bowel movement by post-operative day 3. naloxone injection 0.2 mg (Narcan) 0.2 mg, intravenous, As needed, respiratory depression, Starting on Gina 05/20/24 at 1507, For RASS Score -4 or less, respiratory rate of less than 8 breaths/min. Notify provider/service and rapid response team (if available at institution). ondansetron (PF) injection 4 mg (Zofran) 4 mg, intravenous, Every 6 hours PRN, nausea, vomiting, Starting on Fri05/20/24 at 1507, Reassess for nausea or vomiting after at least 10 minutes. If nausea or vomiting persists administer next ordered antiemetic medications (order for antiemetic medication administration ondansetron then haloperidol then prochlorperazine). Given 05/21/2024 8:11 AM CDT 4 mg Given 05/20/2024 8:49 PM CDT 4 mg oxyCODONE IR tablet 2.5 mg (Roxicodone) 2.5 mg, oral, Every 4 hours PRN, moderate pain or score 4-6 of 10, Starting on Fri05/20/24 at 1507 oxyCODONE IR tablet 5 mg (Roxicodone) 5 mg, oral, Every 4 hours PRN, severe pain or score 7-10 of 10, or for pain greater than comfort goal, Starting on Fri05/20/24 at 1507 polyethylene glycol powder packet 17 g (Miralax) 17 g, oral, Daily, First dose on Fri05/21/24 at 0900, Ordered sequence of administration: polyethylene glycol, then bisacodyl until BM achieved. Avoid mixing with starch-based thickened liquids., Indications: constipationIndications:constipation primidone tablet 250 mg (Mysoline) 250 mg, oral, 2 times daily, First dose on Fri05/20/24 at 2100 Given 05/21/2024 8:10 AM CDT 250 mg Given 05/20/2024 9:47 PM CDT 250 mg prochlorperazine injection 5 mg (Compazine) 5 mg, intravenous, Every 6 hours PRN, vomiting, nausea, Starting on Fri05/20/24 at 1507, RASS must be -2 or higher to administer. Reassess for nausea or vomiting after at least 10 minutes. If nausea or vomiting persists administer next ordered antiemetic medications (order for antiemetic medication administration ondansetron then haloperidol then prochlorperazine) Given 05/20/2024 5:12 PM CDT 5 mg propranoloL 24 hr capsule 60 mg (InderaL LA) 60 mg, oral, Daily at bedtime, First dose (after last reorder) on Fri05/21/24 at 2100, Swallow whole. Do NOT crush, chew or open capsule. propranoloL tablet 60 mg (InderaL) 60 mg, oral, Daily at bedtime, First dose (after last modification) on Fri05/20/24 at 2100 Given 05/20/2024 9:47 PM CDT 60 mg rOPINIRole tablet 1 mg (Requip) 1 mg, oral, Daily at bedtime, First dose (after last modification) on Fri05/20/24 at 2100 Given 05/20/2024 9:46 PM CDT 1 mg scopolamine base 1 mg over 3 days 1 patch (Transderm-Scop) 1 patch, transdermal, Administer over 72 Hours, Every 72 hours PRN, nasuea, vertigo, Starting on Fri05/20/24 at 2110, Contains 1.5 mg to deliver 1 mg/72 hours. Medication Applied 05/21/2024 4:44 AM CDT 1 patch Behind Left Ear sennosides-docusate sodium 8.6-50 mg per tablet 2 tablet (Senokot-S) 2 tablet, oral, 2 times daily, First dose on Fri05/20/24 at 2100, For constipation. Hold for diarrhea. Given 05/21/2024 8:10 AM CDT 2 tablets Given 05/20/2024 9:47 PM CDT 2 tablets venlafaxine XR 24 hr capsule 150 mg (Effexor-XR) 150 mg, oral, Daily with morning meal, First dose on Fri05/21/24 at 0800, Swallow whole. Do NOT crush, chew or open capsule. Given 05/21/2024 8:11 AM CDT 150 mg documented in this encounter Active and Recently Administered Medications Times are shown in CDT. Scheduled Medication Order 05/19/2024 05/20/2024 05/21/2024 acetaminophen tablet 1,000 mg (TylenoL) 1,000 mg, oral, 4 times daily, First dose on Fri05/20/24 at 1700 1708 (Given - Provider: Kulwant Bryan R.N.)8344 (Given - Provider: Taisha Orozco R.N.) 0797 (Given - Provider: Kait Romero RLauraN.)1200 (Due) EEEybfkbgzf-xfgzadesy-idl nephrine 0.25%-0.5%-1:200,000 injection (Romaine 2 alternative) (COMPLETED) 50 mL, subcutaneous, Once, On Gina 05/20/24 at 0815, For 1 dose, Intra-Op 0815 (Due)0934 (Given - Provider: Barrington Mercer M.D., Ph.D. - Comment: Injected 10cc at 0815 in Pre-op with headframe applicationInjected 9mls at 1043 on the left scalpInjected 10mls at 1138 on the right scalp) calcium carbonate-vitamin D3 1,250 mg (500 mg calcium)-5 mcg (200 Unit) per tablet 1 tablet 1 tablet, oral, Daily with morning meal, First dose on Fri05/21/24 at 0800, calcium carbonate/vitamin-D 1250 mg(500 mg elemental)/200 units was interchanged for calcium carbonate/ calcium carbonate/vitamin D 600 mg/400 units Take with food. 0811 (Not Given - Provider: Kait Romero RAnthony - Reason: Patient/family refused) ceFAZolin injection 2 g (Ancef) 2 g, intravenous, Every 8 hours, First dose on Gina 05/20/24 at 2200, For 3 doses, Start within 8 hours of last IV dose. For immediate IV push administration, reconstitute vial per IVAG or package insert instructions. See IVAG for administration guidelines., Drug Monitoring Program: Pharmacist to adjust medication dosing based on indication and drug clearance factors., Indications: Prophylaxis, surgical 2210 (Given - Provider: Kulwant Bryan RLauraN.) 0502 (Given - Provider: Taisha Orozco RLauraNLaura) ceFAZolin injection 2,000 mg (Ancef) (COMPLETED) 2,000 mg (rounded from 1,560 mg = 25 mg/kg ? 62.4 kg), intravenous, Once, On Gina 05/20/24 at 0700, For 1 dose, Intra-Op, Administer within 1 hour prior to surgical incision For immediate IV push administration, reconstitute vial per IVAG or package insert instructions. See IVAG for administration guidelines., Drug Monitoring Program: Pharmacist to adjust medication dosing based on indication and drug clearance factors., Indications: Prophylaxis, surgical 1005 (Given - Provider: Camilla Julien APRN, [employer] PROJECT MANAGER - Comment: 400 mg test dose given first)1253 (Given - Provider: Camilla Julien APRN, CRNA) levETIRAcetam in NaCl (iso osm) IVPB 1,000 mg (Keppra) (COMPLETED) 1,000 mg, intravenous, at 300 mL/hr, Administer over 20 Minutes, Once, On Fri05/20/24 at 0700, For 1 dose, Intra-Op 09 (Given - Provider: Camilla Julien APRN, DIANE) polyethylene glycol powder packet 17 g (Miralax) 17 g, oral, Daily, First dose on Fri05/21/24 at 0900, Ordered sequence of administration: polyethylene glycol, then bisacodyl until BM achieved. Avoid mixing with starch-based thickened liquids., Indications: constipation 808 (Return to [facility] - Provider: Kait Romero R.N.) primidone tablet 250 mg (Mysoline) 250 mg, oral, 2 times daily, First dose on Fri05/20/24 at 2099 2146 (Given - Provider: Taisha Orzoco, RLauraN.) 0810 (Given - Provider: Kait Romero R.N.) propranoloL 24 hr capsule 60 mg (InderaL LA) 60 mg, oral, Daily at bedtime, First dose (after last reorder) on Fri05/21/24 at 2100, Swallow whole. Do NOT crush, chew or open capsule. propranoloL tablet 60 mg (InderaL) (CANCELED) 60 mg, oral, Daily at bedtime, First dose (after last modification) on Fri05/20/24 at 2099 2146 (Given - Provider: Taisha Orozco, R.N.) rOPINIRole tablet 1 mg (Requip) 1 mg, oral, Daily at bedtime, First dose (after last modification) on Fri05/20/24 at 2099 214 (Given - Provider: Taisha Orozco, R.N.) sennosides-docusate sodium 8.6-50 mg per tablet 2 tablet (Senokot-S) 2 tablet, oral, 2 times daily, First dose on Fri05/20/24 at 2100, For constipation. Hold for diarrhea. 2147 (Given - Provider: Taisha Orozco RLauraN.) 0810 (Given - Provider: Kait Romero R.N.) venlafaxine XR 24 hr capsule 150 mg (Effexor-XR) 150 mg, oral, Daily with morning meal, First dose on Fri05/21/24 at 0800, Swallow whole. Do NOT crush, chew or open capsule. 0811 (Given - Provider: Kait Romero R.N.) Continuous Medication Order 05/19/2024 05/20/2024 05/21/2024 Lactated Ringer's () 80 mL/hr, intravenous, Continuous, Starting on Gina 05/20/24 at 1530, For 12 hours 1535 (New Bag - Provider: Joan Bryan RLauraNLaura) PRN Medication Order 05/19/2024 05/20/2024 05/21/2024 acetaminophen injection 1,000 mg (COMPLETED)(Linked Group 1) 1,000 mg, intravenous, at 400 mL/hr, Administer over 15 Minutes, Once as needed, other, If patient has not received in previous 6 hours, Starting on Gina 05/20/24 at 1423, For 1 dose, PACU (only), Oral unless RASS less than -1 or nausea/vomiting. Do not use if given in last 6 hours, Restriction Criteria (Pharmacy will review and approve if criteria met): Unable to take or tolerate medications administered via the enteral route or orally (not just NPO) 1428 (New Bag - Provider: Sury Longoria RAnthony) benzocaine-menthoL 15-3.6 mg per lozenge 1 lozenge (CepacoL) 1 lozenge, oral, As needed, sore throat, throat irritation, Starting on Gina 05/20/24 at 1507 0736 (Given - Provid er: Kait Romero R.N.) bisacodyL suppository 10 mg (Dulcolax) 10 mg, rectal, Daily PRN, constipation, Starting on Gina 05/20/24 at 1507, Ordered sequence of administration: polyethylene glycol, then bisacodyl until BM achieved. fentaNYL injection 25 mcg (Sublimaze) (CANCELED) 25 mcg, intravenous, Every 2 min PRN, moderate pain or score 4-6 of 10, severe pain or score 7-10 of 10, Starting on Gina 05/20/24 at 1423, PACU (only), Up to maximum total dose of 200 mcg 1432 (Given - Provider: Sury Longoria R.N.) hydrALAZINE tablet 25 mg (Apresoline) 25 mg, oral, Every 6 hours PRN, high blood pressure; see admin instructions, Starting on Gina 05/20/24 at 1507, Hold for heart rate greater than 100 bpm. Keep systolic blood pressure less than 160 mmHg. HYDROmorphone (PF) injection 0.2 mg (Dilaudid) 0.2 mg, intravenous, Every 2 hour PRN, severe pain or score 7-10 of 10, Starting on Gina 05/20/24 at 1507, For breakthrough pain unrelieved 30 minutes after PRN pain medication is used. May administer IV pain medication concurrently with PRN oral medication if pain is greater than or equal to 7 in order to provide immediate relief. labetaloL injection 10 mg 10 mg, intravenous, Every 4 hours PRN, high blood pressure, SBP >160, Starting on Gina 05/20/24 at 1507 0142 (Given - Provid er: Rosalinda Bradley R.N.) magnesium hydroxide suspension 30 mL (Milk of Magnesia) 30 mL, oral, Daily PRN, constipation, Starting on Gina 05/20/24 at 1507, Give if no bowel movement by post-operative day 3. naloxone injection 0.2 mg (Narcan) 0.2 mg, intravenous, As needed, respiratory depression, Starting on Gina 05/20/24 at 1507, For RASS Score -4 or less, respiratory rate of less than 8 breaths/min. Notify provider/service and rapid response team (if available at institution). ondansetron (PF) injection 4 mg (Zofran) 4 mg, intravenous, Every 6 hours PRN, nausea, vomiting, Starting on Gina 05/20/24 at 1507, Reassess for nausea or vomiting after at least 10 minutes. If nausea or vomiting persists administer next ordered antiemetic medications (order for antiemetic medication administration ondansetron then haloperidol then prochlorperazine). 2048 (Given - Provider: Taisha Orozco RAnthony) 0811 (Given - Provider: Kait Romero R.N.) oxyCODONE IR tablet 2.5 mg (Roxicodone)(Linked Group 2) 2.5 mg, oral, Every 4 hours PRN, moderate pain or score 4-6 of 10, Starting on Gina 05/20/24 at 1507 oxyCODONE IR tablet 5 mg (Roxicodone)(Linked Group 2) 5 mg, oral, Every 4 hours PRN, severe pain or score 7-10 of 10, or for pain greater than comfort goal, Starting on Gina 05/20/24 at 1507 prochlorperazine injection 5 mg (Compazine) 5 mg, intravenous, Every 6 hours PRN, vomiting, nausea, Starting on Gina 05/20/24 at 1507, RASS must be -2 or higher to administer. Reassess for nausea or vomiting after at least 10 minutes. If nausea or vomiting persists administer next ordered antiemetic medications (order for antiemetic medication administration ondansetron then haloperidol then prochlorperazine) 1712 (Given - Provider: Carole Bryan R.N.) scopolamine base 1 mg over 3 days 1 patch (Transderm-Scop) 1 patch, transdermal, Administer over 72 Hours, Every 72 hours PRN, nasuea, vertigo, Starting on Fri05/20/24 at 2111, Contains 1.5 mg to deliver 1 mg/72 hours. 0444 (Medication Mariela lied - Provider: Taisha Orozco R.N.)1303 (Due: Medication Removed - Provider: Discharge Provider, Automatic - Comment: Time automatically adjusted from order being discontinued) thrombin (human plasma)-fibrinogen-aprotini n-Ca topical solution (Tisseel [facility]) (CANCELED) As needed, Starting on Gina 05/20/24 at 1100, Intra-Op 1100 (Given - Provider: Barrington Mercer M.D., Ph.D. - Comment: Applied bilateral head incision) vancomycin powder (CANCELED) As needed, Starting on Gina 05/20/24 at 1321, Intra-Op 1321 (Given - Provider: Barrington Mercer M.D., Ph.D. - Comment: Cranial wounds) Linked Groups Order Group 1: acetaminophen tablet 1,000 mg (TylenoL) (COMPLETED) 1,000 mg, oral, Once as needed, other, If patient has not received in the previous 6 hours, Starting on Gina 05/20/24 at 1423, For 1 dose, PACU (only), Oral unless RASS less than -1 or nausea/vomiting. Do not use if given in last 6 hours Or acetaminophen injection 1,000 mg (COMPLETED)Jump to med 1,000 mg, intravenous, at 400 mL/hr, Administer over 15 Minutes, Once as needed, other, If patient has not received in previous 6 hours, Starting on Gina 05/20/24 at 1423, For 1 dose, PACU (only), Oral unless RASS less than -1 or nausea/vomiting. Do not use if given in last 6 hours, Restriction Criteria (Pharmacy will review and approve if criteria met): Unable to take or tolerate medications administered via the enteral route or orally (not just NPO) Group 2: oxyCODONE IR tablet 2.5 mg (Roxicodone)Jump to med 2.5 mg, oral, Every 4 hours PRN, moderate pain or score 4-6 of 10, Starting on Gina 05/20/24 at 1507 Or oxyCODONE IR tablet 5 mg (Roxicodone)Jump to med 5 mg, oral, Every 4 hours PRN, severe pain or score 7-10 of 10, or for pain greater than comfort goal, Starting on Gina 05/20/24 at 1507 documented in this encounter
--- OUTSIDE RECORDS SUMMARY | 2024-06-05 15:57 | XMS_ITS ---
Author Organization [facility] Address [address] [place] [address] Care Team Providers Care Director Visual Name Role Phone Unavailable Unavailable Unavailable Surgery Details Not on file Complications Check Surgery Details section. Procedure Estimated Blood Loss Check Surgery Details section. Procedure Findings Check Surgery Details section. Procedure Specimens Taken Check Surgery Details section.
--- OUTSIDE RECORDS SUMMARY | 2024-06-05 15:57 | XMS_ITS | Encounter Summary ---
Author Organization [facility] Address [address] [place] [address] Care Team Providers Care Optic Fibre Drawer Name Role Phone Unavailable Primary Care Provider Unavailabl e Reason for Referral * MRI/CAT/PET Scan (Routine) - Closed Specialty Diagnoses / Procedures Referred By Rosita jose Referred To Contact Radiology Diagnoses Tremor Essential Procedures CT Head without IV Contrast Barrington Mercer M.D., Ph.D. [address] [place] [address] Phone: tel: fax: [facility] Referral ID Status Reason Start Date Expiration Date Visits Re quested Visits Authorized [id number] Closed 03/24/2024 03/24/2025 1 1 Reason for Visit * Auth/Cert (Routine) Specialty Diagnoses / Procedures Referred By Rosita jsoe Referred To Contact Diagnoses Tremor Essential Tremor Essential [G25.0] Procedures [place] INS CRNL PULSE GEN 2+ CONNECT APPLICATION STEREOTACTIC HEAD FRAME. CTV to follow headframe placement. PLACEMENT NEUROSTIMULATOR DEEP BRAIN - VIM Barrington Mercer M.D., Ph.D. [address] [place] [address] Phone: tel: fax: Referral ID Status Reason Start Date Expiration Date Visits Re quested Visits Authorized [id number] 1 1 Encounter Details Date Type Department Care Team (Latest Contact Info) Description 05/20/2024 1:00 PM CDT - 05/20/2024 11:59 PM CDT Hospital Encounter Department of Radiology, [facility], in [place], [place] [address] [place] [address] Barrington Mercer M.D., Ph.D. [address] [place] [address] Tremor Essential Discharge Disposition: Home or Self Care Social History Tobacco Use Types Packs/Day Years Used Date Smoking Tobacco: Never Passive Smoke Exposure: Never Smokeless Tobacco: Never Alcohol Use Standard Drinks/Week Comments Yes 4 (1 standard drink = 0.6 oz pure alcohol) Currently 3-4 glasses wine per week. (elimination diet) [facility] Utilities Answer Date Recorded In the past 12 months has [employer], gas, oil, or water [employer] threatened to shut off services in your [...] often do you attend chur ch or gnosticist services? More than 4 times per year 12/06/2022 Do you belong to any clubs o r organizations such as congregational groups, unions, fraternal or athletic groups, or [...] and heating? Not hard at all 12/06/2022 [facility] - Occupational [...] living situation today? I have a [facility] place to live 12/31/2023 Education Answer Date Recorded What is the highest level of school you have completed or the highest degree you have received? 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 vit C,W-Yj-ligak-lut ein-zeaxan (PreserVision AREDS-2) 250-90-40-1 mg per capsule [...] 20 tablet 05/21/2024 1:01 PM CDT 05/21/2024 4 oxyCODONE (Roxicodone) 5 mg immediate release tabletIndication s:Acute Pain Exception Take 0.5 tablets (2.5 mg total) by mouth every 4 (four) hours as needed for severe pain or score 7-10 of 10 (or for pain greater than comfort goal) Indication: Acute Pain Exception. 15 tablet 05/21/2024 1:01 PM CDT 05/20/2024 primidone (MYSOLINE) 250 mg tablet Take 1 tablet (250 mg total) by mouth 2 (two) times a day. 180 tablet 3 07/30/2019 4 documented as of this encounter Plan of Treatment Not on file documented as of this encounter Procedures Procedure Name Priority Date/Time Associated Diagnosis Comments CT HEAD WITHOUT IV CONTRAST RAD - Routine (most inpatients and all outpatients) 05/20/2024 4:00 PM CDT Tremor Essential documented in this encounter Results * CT Head without IV Contrast (05/20/2024 [...] M.D., Ph.D. IMG CT PROCEDURES Final Result documented in this encounter Visit Diagnoses Diagnosis Tremor Essential documented in this encounter
--- OUTSIDE RECORDS SUMMARY | 2024-06-05 15:57 | XMS_ITS | Encounter Summary ---
Author Organization [facility] Address [address] [place] [id number] Care Team Providers Care Security Services Manager Name Role Phone Unavailable Primary Care Provider Unavailabl e Reason for Visit * Auth/Cert (Routine) Specialty Diagnoses / Procedures Referred By Contac t Referred To Contact Diagnoses Tremor Essential Tremor Essential [G25.0] Procedures AR INS CRNL PULSE GEN 2+ CONNECT APPLICATION STEREOTACTIC HEAD FRAME. CTV to follow headframe placement. PLACEMENT NEUROSTIMULATOR DEEP BRAIN - VIM Barrington Mercer M.D., Ph.D. [address] [place] [phone] Phone: tel: fax: Referral ID Status Reason Start Date Expiration Date Visits Re quested Visits Authorized [id number] 1 1 Encounter Details Date Type Department Care Team (Late st Contact Info) Description 05/20/2024 9:12 AM CDT Anesthesia Event RST ROMB MAIN OR [address] [place] [phone] Camilla Julien, ELECTRONICS UTILITY WORKER, WOOL SUPPLIER [address] [place] [phone] Dian Gao M.D. [address] [place] [phone] Anesthesia Record Procedure Summary Procedure Name Responsible Anesthesiologist Anesthesia Start Time Anesthesia Stop Time APPLICATION STEREOTACTIC HEAD FRAME, CTV to follow headframe placement. Camilla Julien APRN, CRNA 05/20/24 0905/20/24 1423 Events Date Time Event Comment 05/20/2024911 An Start Machine/Equipme nt Checked Infection Precautions Followed Procedure/Site Verified NPO Status Verified Supine Standard ASA Monitors Applied 925 Turnover to Proceduralist 1042 Anesthesia Time Out 1043 Proc Start 1105 Anes CS Handoff I, Camilla haider APRN, CRNA, attest that I have reconciled the controlled substances and that I have reviewed all the significant information with the next anesthesia provider assuming care of this patient. 1139 Anes CS Handoff I, Zayda barnes APRN, CRNA, DNAP, attest that I have reconciled the controlled substances and that I have reviewed all the significant information with the next anesthesia provider assuming care of this patient. 1345 Anes CS Handoff I, Zayda barnes APRN, CRNA, DNAJoe, attest that I have reconciled the controlled substances and that I have reviewed all the significant information with the next anesthesia provider assuming care of this patient. 1352 Proc Fin 1404 Turnover to ANE Staff 1404 an stop data 1423 An End I completed my handoff to the receiving staff during which we 1. Identified the patient 2. Identified the responsible provider 3. Reviewed the pertinent medical history 4. Discussed the surgical course 5. Reviewed intra-op anesthesia management and issues during anesthesia 6. Set expectations for post-procedure period 7. Allowed opportunity for questions and acknowledgement of understanding. Meds Name Total ceFAZolin injection 2,000 mg (Ancef) 4 g dexAMETHasone injection 10 mg (Decadron) 0 mg levETIRAcetam in NaCl (iso osm) IVPB 1,0 00 mg (Keppra) 1,000 mg remifentaniL 20 mcg/mL in NaCl 0.9% 100 mL infusion (Ultiva) 0.21 mg ondansetron PF 4 mg/2 mL injection 4 mg clevidipine bolus 0.5 mg/mL 50 mL (premi x) 0.5 mg Lactated Ringers Free Drip 900 mL * Agents No agents on file. * Blood No blood administrations on file. Lines, Drains, and Airways Type Details Placement Removal Wound 05/20/24; 1332; Inci kaela; Head (Comment); Left, Upper 05/20/24 1332 by Rambo Nolen R.N. Wound 05/20/24; 1333; N; Incision; IPSI(s) present (DBS Lead Boots X2); Head (Comment); Right, Upper 05/20/24 1333 by Rambo Nolen R.N. Peripheral IV Placement Date: 04/26 02/15; Placement Time: 829; Catheter Size: 20 G; Orientation: Left, Posterior; Location: Hand; Site Prep: Chlorhexidine (Preferred); Technique: Anatomical landmarks; Inserted by: ct; Insertion Attempts: 1; Removal Date: 05/21/24; Removal Time: 101; Removal Reason: Patient discharged 05/20/[address]29 by Kaylen Waddell 05/21/24 1010 by Marie Fowler, C.N.A. documented in this encounter Social History Tobacco Use Types Packs/Day Years Used Date Smoking Tobacco: Never Passive Smoke Exposure: Never Smokeless Tobacco: Never Alcohol Use Standard Drinks/Week Comments Yes 4 (1 standard drink = 0.6 oz pure alcohol) Currently 3-4 glasses wine per week. (elimination diet) [facility] Utilities Answer Date Recorded In the past 12 months has [facility] [employer], gas, oil, or water [employer] threatened to shut off services in your [...] often do you attend chur ch or zoroastrianism services? More than 4 times per year 12/06/2022 Do you belong to any clubs o r organizations such as taoist groups, unions, fraternal or athletic groups, or [...] Not hard at all 12/06/2022 [facility] of Occupat ional Health - Occupational Stress [...] your living situation today? I have a [facility] place to live 12/31/2023 Education Answer Date Recorded What is the highest level of school you have completed or the highest degree you have received? 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 PLACEMENT NEUROSTIMULATOR DEEP BRAIN, VIM. (Bilateral) Diagnosis: Tremor Essential (Tremor Essential [G25.0].) Providers: Barrington Mercer M.D., Ph.D. Responsible Provider: Camilla Julien APRN, CRNA Anesthesia Type: MAC ASA Status: 2 Anesthesia Type: MAC Last vitals Vitals Value Taken Time BP 167/78 05/20/24 1415 Temp Pulse 76 05/20/24 1423 Resp 15 05/20/24 1423 SpO2 94 % 05/20/24 1423 Vitals shown include unfiled device data. Please reference Vitals flowsheet for most recent vital signs. Anesthesia Post Evaluation Patient Disposition: general care unit Cardiovascular status: hemodynamics (HR & BP) acceptable Respiratory status: patent airway with spontaneous effort Temperature: normothermic Oxygen requirements: room air Level of consciousness: awake Pain score: pain adequately controlled and/or at baseline Post Op nausea/vomiting: none Hydration status: euvolemic Notable Events No notable events documented. * Anesthesia Preprocedure Evaluation - Ricki Caputo M.D. - 05/20/2024 7:23 AM CDT Preprocedure Anesthesia & H&P Assessment Procedure Summary Date/Time: 05/20/24724 Procedures: APPLICATION STEREOTACTIC HEAD FRAME, CTV to follow headframe placement. PLACEMENT NEUROSTIMULATOR DEEP BRAIN, VIM. (Bilateral) Diagnosis: Tremor Essential [G25.0] Pre-op diagnosis: Tremor Essential [G25.0]. Location: [address] / [facility] in [place], [place] Providers: Barrington Mercer M.D., Ph.D. Pertinent components of the patient's history including current problem list, medical history, surgical history, family history, social history, medications and allergies were reviewed. Present illness and pre-op diagnosis were confirmed. The planned surgery / procedure was verified with the patient / legal guardian. The patient's general health condition remains unchanged (See Linked H&P) RELEVANT COMORBID CONDITIONS No relevant active problems OBJECTIVE PHYSICAL EXAMINATION Airway (HEENT) Mallampati: II Neck ROM: Full Mouth Opening: >3 cm Cardiovascular Rhythm: Regular Functional Capacity: >4 METS Pulmonary Pulmonary Assessment: Non labored General / Constitutional Constitutional Assessment: Normal General State of Health:: healthy appearing and calm Neurological Neurologic Assessment: alert and alert and oriented x 3 ASSESSMENT / PLAN ANESTHESIA PLAN ASA: 2 Anesthesia Plan: MAC Patient seen and allergies reviewed, anesthesia plan and risks discussed directly with patient /legal guardian or through an rubber goods cutter finisher. Risks/Benefits/Alternatives of Blood transfusion discussed with patient / legal guardian, includingan opportunity to ask questions and/or decline some or all transfusion therapies. The patient / legal guardian consented to the use of all blood products, as deemed medically necessary Approval to Proceed: approved for anesthesia documented in this encounter Plan of Treatment Not on file documented as of this encounter Visit Diagnoses Not on filedocumented in this encounter Administered Medications Inactive Administered Medications - up to 3 most recent administrations Medication Order MAR Action Action Date Dose Rate Site ceFAZolin injection 2,000 mg (Ancef) 2,000 mg (rounded from 1,560 mg = [...] clearance factors., Indications: Prophylaxis, surgicalIndications:Prophylaxis, surgical Given 05/20/2024 12:53 PM CDT 2 g Given 05/20/2024 10:05 AM CDT 2 g clevidipine 0.5 mg/mL bolus (Cleviprex) intravenous, As needed, Starting on Gina 05/20/24 at 1153, Anesthesia Intra-op Given 05/20/2024 12:49 PM CDT 0.2 mg Given 05/20/2024 12:40 PM CDT 0.1 mg Given 05/20/2024 12:26 PM CDT 0.1 mg Lactated Ringer's intravenous, Continuous Infusion: Per Instructions PRN, Starting on Gina 05/20/24 at 0919, Anesthesia Intra-op New Bag 05/20/2024 9:19 AM CDT levETIRAcetam in NaCl (iso osm) IVPB 1,000 mg (Keppra) 1,000 mg, intravenous, at 300 mL/hr, Administer over 20 Minutes, Once, On Gina 05/20/24 at 0700, For 1 dose, Intra-Op Given 05/20/2024 9:31 AM CDT 1,000 mg ondansetron (PF) injection (Zofran) intravenous, As needed, Starting on Gina 05/20/24 at 0925, Anesthesia Intra-op Given 05/20/2024 9:25 AM CDT 4 mg remifentaniL 20 mcg/mL in NaCl 0.9% 100 mL infusion (Ultiva) intravenous, Continuous Infusion: Per Instructions PRN, Starting on Gina 05/20/24 at 0932, Anesthesia Intra-op Restarted 05/20/2024 1:13 PM CDT 0.05 mcg/kg/min 9.36 mL/hr Rate/Dose Change 05/20/2024 10:41 AM CDT 0.03 mcg/kg/min 5 .616 mL/hr Rate/Dose Change 05/20/2024 10:09 AM CDT 0.02 mcg/kg/min 3 .744 mL/hr documented in this encounter
--- OUTSIDE RECORDS SUMMARY | 2024-06-05 15:57 | XMS_ITS | Encounter Summary ---
Author Organization [facility] Address [address] [place] [address] Care Team Providers Care Boiler Operator Helper Name Role Phone None Reported, Pcp Primary Care Provider Unavail able Reason for Visit * Auth/Cert (Routine) Specialty Diagnoses / Procedures Referred By Rosita t Referred To Contact Diagnoses Tremor Essential Tremor Essential [G25.0] Procedures [place] INS CRNL PULSE GEN 2+ CONNECT PLACEMENT NEUROSTIMULATOR - INFRACLAVICULAR SPACE Barrington Mercer M.D., Ph.D. [address] [place] [phone] Phone: tel: fax: Referral ID Status Reason Start Date Expiration Date Visits Re quested Visits Authorized [id number] 1 1 Encounter Details Date Type Department Care Team (Late st Contact Info) Description 05/25/2024 1:11 PM CDT - 05/25/2024 3:12 PM CDT Surgery [facility] MAIN OR [address] [place] [phone] Barrington Mercer M.D., Ph.D. [address] [place] [phone] PLACEMENT NEUROSTIMULATOR, INFRACLAVICULAR SPACE. Social History Tobacco Use Types Packs/Day Years Used Date Smoking Tobacco: Never Passive Smoke Exposure: Never Smokeless Tobacco: Never Alcohol Use Standard Drinks/Week Comments Yes 4 (1 standard drink = 0.6 oz pure alcohol) Currently 3-4 glasses wine per week. (elimination diet) [facility] Utilities Answer Date Recorded In the past 12 months has e [employer], oil, or water [employer] threatened to shut off services in your [...] How often do you attend chur or cheondoism services? More than 4 times per year 12/06/2022 Do you belong to any clubs o r organizations such as pentecostalism groups, unions, fraternal or athletic groups, or [...] and heating? 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 Gender Identity Female 02/10/2020 9:11 PM CDT Sexual Orientation Straight 02/10/2020 9: 11 PM CDT documented as of this encounter Last Filed Vital Signs Vital Sign Reading Time Taken Comments Blood Pressure 179/82 05/25/2024 1:31 PM CDT Pulse 60 05/25/2024 11:03 AM CDT Temperature 36.5 ??C (97.7 ??F) 05/25/2024 11:03 AM C DT Respiratory Rate 16 05/25/2024 11:03 AM CDT Oxygen Saturation 97% 05/25/2024 11:03 AM CDT Inhaled Oxygen Concentration - - Weight 61.3 kg (135 lb 2.3 oz) 05/25/2024 11:03 AM CDT Height 165.1 cm (5' 5) 05/25/2024 11:03 AM CDT Body Mass Index 22.49 05/25/2024 11:03 AM CDT documented in this encounter Medications at Time [...] by mouth daily with morning meal. vit C,K-Jr-szwmv-lut ein-zeaxan (PreserVision AREDS-2) 250-90-40-1 mg per capsule [...] 07/30/2019 4 documented as of this encounter OR Notes * Op Note - Barrington Mercer M.D., Ph.D. - 05/25/2024 3:15 PM CDT Pre-op Diagnosis Tremor Essential Post-op Diagnosis Tremor Essential Circular Tank Cooper A director of first impressions actively participated and was necessary for one or more of the following: opening, exposure and visualization, maintaining hemostasis, wound closure resulting in its safe and expeditious completion. Findings As expected Complications None Operative Note Narrative The patient was brought to the operating room and positioned supine, induced under general anesthesia and intubated by our Anesthesia colleagues. The kiosk sales representative from [employer], and the presence of all needed hardware was confirmed prior to induction of general anesthesia. A 4 cm scalp incision was planned and shaved beginning approximately 12 cm posterior laterally to the right DBS insertion site. An approximately 6-8 cm subclavicular transverse incision was planned 2cm below the right clavicle and 3 cm from the midline on the right. A 2 stage surgical prep was performed extending from the right DBS insertion site, down across planned DBS connection site on the right scalp, behind the ear, extending below the planned right subclavicular incision, after which the surgical site was draped in the standard fashion. At this time a time-out was performed. Local anesthesia was then administered throughout the surgical incision regions as well as the insertions of the muscle the base of the scalp. Incision was 1st made at the head incision which was opened a 10 blade incision followed by monopolar cautery to the level of the skull. The leads were then retrieved and sequestered away from the remainder of the incision by a stapled Ray-Miguel . I retracted the scalp anteriorly from the incision and drilled out a countersunk profile for the lead extensions, ensuring that the countersunk profile would be positioned well anterior to the incision line. A 5-hole plate was placed on top of the countersunk extension to hold it in place. Attention was then turned to the subclavicular site, where a 10 blade was used to incise the skin, followed by a small segment of monopolar cautery. Monopolar cautery and finger spreading were then used to dissect along pectoralis fascia creating a 5 x 5 cm pocket. A plastic tube was then tunneled between the 2 sites using a tunneler. At That point I changed my gloves. The bifurcated lead extension was then passed from the scalp site to the infraclavicular sitethrough the plastic tube and then the plastic tube was removed. I connected the lead extensions into both the leads. Vancomycin powder was placed into the incision. I then changed my gloves and opened the pulse generator, and connected it to the lead extension - the left side which was noted with the gold band / gold port. All screws were confirmed to be tight using the finger sized torque wrench. The pulse generator was then placed into the pocket and impedances were then confirmed to be in the appropriate range using telemetry. The pulse generator was placed in the chest pocket with the extra length of the leads coiled up underneath. The pulse generator was then sewn into the depth of the pocket using a silk tie. Running 2-0 Vicryl suture was used to close the deeper layer of fatty/fascial tissue overlying the pulse generator. Vancomycin powder was then placed in both incisions. The subdermal layer of the subclavicular incision was closed using interrupted 3-0 Vicryl sutures, spaced at approximately 5-7 mm, and the skin was closed with a running subcuticular 4-0 vicryl rapide suture. The subgaleal layer of the scalp incision was closed using interrupted 2-0 Vicryl sutures, spaced at approximately 5-7 mm, and the skin was closed with a running 3-0 vicryl rapide suture. Dermabond glue was then placed over the subclavicular incision. Barrington Mercer M.D., Ph.D. * Brief Op Note - Mana Hassan M.D. - 05/25/2024 3:15 PM CDT Pre-op Diagnosis Tremor Essential Post-op Diagnosis Tremor Essential Findings As expected. Complications None Skin closed with 4-0 rapide (running on scalp and subcuticular on chest). Mana Hassan M.D. documented in this encounter Plan of Treatment Not on file documented as of this encounter Procedures Procedure Name Priority Date/Time Associated Diagnosis Comments PLACEMENT NEUROSTIMULATOR - INFRACLAVICULAR SPACE 05/25/2024 1:59 PM CDT Tremor Essential Case Notes Special Education Administrator [id number] documented in this encounter Visit Diagnoses Diagnosis Tremor Essential documented in this encounter Admitting [...] received in previous 6 hours, Starting on Fri05/25/24 at 1716, For 1 dose, PACU (only), Oral unless RASS less than -1 or nausea/vomiting. Do not use if given in last 6 hours, Restriction Criteria (Pharmacy will review and approve if criteria met): Unable to take or tolerate medications administered via the enteral route or orally (not just NPO) acetaminophen tablet 1,000 mg (TylenoL) 1,000 mg, oral, Once as needed, other, If patient has not received in the previous 6 hours, Starting on Fri05/25/24 at 1716, For 1 dose, PACU (only), Oral unless RASS less than -1 or nausea/vomiting. Do not use if given in last 6 hours ceFAZolin 1 g in NaCl 0.9% irrigation pour bottle 1,000 mL 1,000 mL, irrigation, Once in surgery, OR use only, Starting on Fri05/25/24 at 1346, For 1 dose, Intra-Op, Irrigation Use Only Refrigerate Given 05/25/2024 3:17 PM CDT 1,000 mL Chest chlorhexidine 0.12 % mouthwash 15 mL (Peridex) 15 mL, swish & spit, Once as needed, Chlorhexidine mouthwash (Peridex) should be given if patient did not complete oral care, if completion is greater than 4 hours prior to surgery or procedure start time and they do not have the opportunity to brush their teeth now (or at this time)., Starting on Fri05/25/24 at 1330, For 1 dose, Pre-Op, Instruct patient to swish entire content of Chlorhexidine 0.12% mouthwash (PERIDEX) 15 mL cup for 30 seconds, then spit, swish & spit. If patient is at risk for aspiration, apply Chlorhexidine 0.12% mouthwash to a swab and gently swab the patient's teeth and gums. Ensure swab is not oversaturated. lidocaine-EPINEPHrine 1 %-1:100,000 injection 20 mL (Xylocaine w/epi) 20 mL, infiltration, As needed, for infiltration, Starting on Fri05/25/24 at 1346, Intra-Op Given 05/25/2024 3:14 PM CDT 10 mL metoprolol tablet 12.5 mg (Lopressor) 12.5 mg, oral, Once as needed, if patient did not take their last scheduled dose of beta alex prior to arrival, Starting on Fri05/25/24 at 1330, For 1 dose, Pre-Op, Do not give if patient does not take scheduled beta blockers, if patient is receiving intravenous vasopressors or inotropes, if heart rate is less than 50 beats per minute, if systolic blood pressure is less than 90 mmHg or if diastolic blood pressure is less than 40 mmHg, or if patient has an allergy to metoprolol. vancomycin powder 1 g 1 g, topical, Once in surgery, OR use only, Starting on Fri05/25/24 at 1346, For 1 dose, Intra-Op, Do not reconstitute Given 05/25/2024 3:42 PM CDT 1 g Chest documented in this encounter Active and Recently Administered Medications Times are shown in CDT. Scheduled Medication Order 05/23/2024 05/24/2024 05/25/2024 acetaminophen tablet 1,000 mg (TylenoL) 1,000 mg, oral, Once, On Fri05/25/24 at 1745, For 1 dose, Pre-Op 1745 (Due) ceFAZolin injection 2,000 mg (Ancef) (COMPLETED) 2,000 mg (rounded from 1,532.5 mg = 25 mg/kg ? 61.3 kg Dosing weight), intravenous, Once, On Fri05/25/24 at 1415, For 1 dose, Intra-Op, Administer within 1 hour prior to surgical incision For immediate IV push administration, reconstitute vial per IVAG or package insert instructions. See IVAG for administration guidelines., Drug Monitoring Program: Pharmacist to adjust medication dosing based on indication and drug clearance factors., Indications: Prophylaxis, surgical 1442 (Given - Provid er: Shanel Corona M.D.) PRN Medication Order 05/23/2024 05/24/2024 05/25/2024 acetaminophen injection 1,000 mg(Linked Group 1) 1,000 mg, intravenous, at 400 mL/hr, Administer over 15 Minutes, Once as needed, other, If patient has not received in previous 6 hours, Starting on Fri05/25/24 at 1716, For 1 dose, PACU (only), Oral unless RASS less than -1 or nausea/vomiting. Do not use if given in last 6 hours, Restriction Criteria (Pharmacy will review and approve if criteria met): Unable to take or tolerate medications administered via the enteral route or orally (not just NPO) acetaminophen tablet 1,000 mg (TylenoL)(Linked Group 1) 1,000 mg, oral, Once as needed, other, If patient has not received in the previous 6 hours, Starting on Fri05/25/24 at 1716, For 1 dose, PACU (only), Oral unless RASS less than -1 or nausea/vomiting. Do not use if given in last 6 hours ceFAZolin 1 g in NaCl 0.9% irrigation pour bottle 1,000 mL (COMPLETED) 1,000 mL, irrigation, Once in surgery, OR use only, Starting on Fri05/25/24 at 1346, For 1 dose, Intra-Op, Irrigation Use Only Refrigerate 1517 (Given - Provid er: Barrington Mercer M.D., Ph.D.) chlorhexidine 0.12 % mouthwash 15 mL (Peridex) 15 mL, swish & spit, Once as needed, Chlorhexidine mouthwash (Peridex) should be given if patient did not complete oral care, if completion is greater than 4 hours prior to surgery or procedure start time and they do not have the opportunity to brush their teeth now (or at this time)., Starting on Fri05/25/24 at 1330, For 1 dose, Pre-Op, Instruct patient to swish entire content of Chlorhexidine 0.12% mouthwash (PERIDEX) 15 mL cup for 30 seconds, then spit, swish & spit. If patient is at risk for aspiration, apply Chlorhexidine 0.12% mouthwash to a swab and gently swab the patient's teeth and gums. Ensure swab is not oversaturated. fentaNYL injection 25 mcg (Sublimaze) 25 mcg, intravenous, Every 2 min PRN, For pain 4 or greater (maximum 100 mcg). If max dose of Fentanyl is reached and if pain is greater than 4, discontinue Fentanyl: give Hydromorphone, Starting on Fri05/25/24 at 1407, PACU (only) fentaNYL injection 25 mcg (Sublimaze) 25 mcg, intravenous, Every 2 min PRN, moderate pain or score 4-6 of 10, severe pain or score 7-10 of 10, Starting on Fri05/25/24 at 1716, PACU (only), Up to maximum total dose of 200 mcg granisetron (PF) injection 1 mg (KytriL) 1 mg, intravenous, Once as needed, nausea, vomiting, Starting on Fri05/25/24 at 1716, For 1 dose, PACU (only), If patient does not respond to ondansetron or haloperidol. (Order of antiemetic administration - ondansetron then haloperidol or droperidol then granisetron) haloperidol lactate injection 1 mg (HaldoL) 1 mg, intravenous, Every 6 hours PRN, nausea, vomiting, Starting on Fri05/25/24 at 1407, PACU (only), Total of 3 doses in 24 hour period. RASS must be -2 or higher to administer. If nausea and vomiting persists, move to granisteron. (Order of antiemetic administration - ondansetron then haloperidol or droperidol then granisetron) HYDROmorphone (PF) injection 0.2 mg (Dilaudid) 0.2 mg, intravenous, Every 5 min PRN, moderate pain or score 4-6 of 10, severe pain or score 7-10 of 10, Starting on Fri05/25/24 at 1407, PACU (only), Up to maximum total dose of 2 mg labetaloL injection 5 mg 5 mg, intravenous, Once as needed, high blood pressure, per Provider instructions, Starting on Fri05/25/24 at 1716, For 1 dose, PACU (only), Follow institution's IV administration guidelines lidocaine-EPINEPHrine 1 %-1:100,000 injection 20 mL (Xylocaine w/epi) 20 mL, infiltration, As needed, for infiltration, Starting on Fri05/25/24 at 1346, Intra-Op 1514 (Given - Provid er: Barrington Mercer M.D., Ph.D.) metoprolol tablet 12.5 mg (Lopressor) 12.5 mg, oral, Once as needed, if patient did not take their last scheduled dose of beta alex prior to arrival, Starting on Fri05/25/24 at 1330, For 1 dose, Pre-Op, Do not give if patient does not take scheduled beta blockers, if patient is receiving intravenous vasopressors or inotropes, if heart rate is less than 50 beats per minute, if systolic blood pressure is less than 90 mmHg or if diastolic blood pressure is less than 40 mmHg, or if patient has an allergy to metoprolol. ondansetron (PF) injection 4 mg (Zofran) 4 mg, intravenous, Every 6 hours PRN, nausea, vomiting, (If patient has not received in the previous 6 hours), Starting on Fri05/25/24 at 2100, PACU (only), Administer first. If nausea and vomiting persists, proceed with haloperidol or droperidol. (Order of antiemetic administration - ondansetron then haloperidol or droperidol then granisetron) oxyCODONE IR tablet 5 mg (Roxicodone) 5 mg, oral, Once as needed, For pain 4 or greater, Starting on Fri05/25/24 at 1407, For 1 dose, PACU (only) vancomycin powder 1 g (COMPLETED) 1 g, topical, Once in surgery, OR use only, Starting on Fri05/25/24 at 1346, For 1 dose, Intra-Op, Do not reconstitute 1542 (Given - Provid er: Barrington Mercer M.D., Ph.D.) Linked Groups Order Group 1: acetaminophen tablet 1,000 mg (TylenoL)Jump to med 1,000 mg, oral, Once as needed, other, If patient has not received in the previous 6 hours, Starting on Fri05/25/24 at 1716, For 1 dose, PACU (only), Oral unless RASS less than -1 or nausea/vomiting. Do not use if given in last 6 hours Or acetaminophen injection 1,000 mgJump to med 1,000 mg, intravenous, at 400 mL/hr, Administer over 15 Minutes, Once as needed, other, If patient has not received in previous 6 hours, Starting on Fri05/25/24 at 1716, For 1 dose, PACU (only), Oral unless RASS less than -1 or nausea/vomiting. Do not use if given in last 6 hours, Restriction Criteria (Pharmacy will review and approve if criteria met): Unable to take or tolerate medications administered via the enteral route or orally (not just NPO) documented in this encounter Care Teams Boiler Operator Helper Relationship Specialty Start Date End Date None Reported, Pcp PCP - General Family Medicine 05/25/24 documented as of this encounter
--- OUTSIDE RECORDS SUMMARY | 2024-06-05 15:57 | XMS_ITS | Encounter Summary ---
Author Organization [facility] Address [address] [place] [id number] Care Team Providers Care Bakery Assistant Name Role Phone Unavailable Primary Care Provider Unavailabl e Reason for Visit * Reason Onset Date Comments Med Question 05/24/2024 Encounter Details Date Type Department Care Team (Late st Contact Info) Description 05/24/2024 Clinical Communication Department of Neurologic Surgery in [place], [place] [address] [place] [phone] Barrington Mercer M.D., Ph.D. [address] [place] [phone] Med Question Social History Tobacco Use Types Packs/Day Years Used Date Smoking Tobacco: Never Passive Smoke Exposure: Never Smokeless Tobacco: Never Alcohol Use Standard Drinks/Week Comments Yes 4 (1 standard drink = 0.6 oz pure alcohol) Currently 3-4 glasses wine per week. (elimination diet) [facility] Utilities Answer Date Recorded In the past 12 months has [facility] [employer], gas, oil, or water [employer] threatened to shut off services in your [...] How often do you attend chur or jain services? More than 4 times per year 12/06/2022 Do you belong to any clubs o r organizations such as catholic groups, unions, fraternal or athletic groups, or [...] and heating? Not hard at all 12/06/2022 [facility] - Occupational Stress [...] your living situation today? I have a [facility] place to live 12/31/2023 Education Answer Date Recorded What is the highest level of school you have completed or the highest degree you have received? 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 - 05/24/2024 9:55 AM CDT SUBJECTIVE CHIEF COMPLAINT / REASON FOR CALL Med Question Information Discussed Bryan Rivera is scheduled for Stage [address] Mercer tomorrow. We reviewed medication recommendations. Mrs. Rivera may take primidone with sips of water tomorrow morning. Hibiclens washing instructions were also discussed. PLAN Disposition/Recommendation: recommended continue engagement in self-management activities Information/Education: patient/caller able to teach back Caller agreeable to plan of care: yes The following references were used: nursing clinical judgement documented in this encounter Plan of Treatment Not on file documented as of this encounter Visit Diagnoses Not on filedocumented in this encounter
--- OUTSIDE RECORDS SUMMARY | 2024-06-05 15:57 | XMS_ITS | Encounter Summary ---
Author Organization [facility] Address [address] [place] [address] Care Team Providers Care Structural Steel Worker Helper Name Role Phone Unavailable Primary Care Provider Unavailabl e Reason for Referral * MRI/CAT/PET Scan (Routine) - Closed Specialty Diagnoses / Procedures Referred By Rosita jose Referred To Contact Radiology Diagnoses Tremor Essential Procedures CT Head Venogram Stereotactic SEEG with IV Contrast Barrington Mercer M.D., Ph.D. 200 [place] [phone] Phone: tel: fax: [facility] Referral ID Status Reason Start Date Expiration Date Visits Re quested Visits Authorized [id number] Closed 03/24/2024 03/24/2025 1 1 Reason for Visit * Auth/Cert (Routine) Specialty Diagnoses / Procedures Referred By Rosita jose Referred To Contact Diagnoses Tremor Essential Tremor Essential [G25.0] Procedures [place] INS CRNL PULSE GEN 2+ CONNECT APPLICATION STEREOTACTIC HEAD FRAME. CTV to follow headframe placement. PLACEMENT NEUROSTIMULATOR DEEP BRAIN - VIM Barrington Mercer M.D., Ph.D. 200 [place] [address] Phone: tel: fax: Referral ID Status Reason Start Date Expiration Date Visits Re quested Visits Authorized [id number] 1 1 Encounter Details Date Type Department Care Team (Latest Contact Info) Description 05/20/2024 6:45 AM CDT - 05/20/2024 12:59 PM CDT Hospital Encounter Department of Radiology, Formerly [facility], in [place], [place] [address] [place] [phone] Barrington Mercer M.D., Ph.D. [address] [place] [phone] Tremor Essential Discharge Disposition: Home or Self Care Social History Tobacco Use Types Packs/Day Years Used Date Smoking Tobacco: Never Passive Smoke Exposure: Never Smokeless Tobacco: Never Alcohol Use Standard Drinks/Week Comments Yes 4 (1 standard drink = 0.6 oz pure alcohol) Currently 3-4 glasses wine per week. (elimination diet) [facility] [employer] Answer Date Recorded In the past 12 months has e [employer], gas, oil, or water [employer] threatened to shut off services in your [...] often do you attend chur ch or taoism services? More than 4 times per year 12/06/2022 Do you belong to any clubs o r organizations such as mormon groups, unions, fraternal or athletic groups, or [...] and heating? Not hard at all 12/06/2022 [facility] ional Health - Occupational [...] your living situation today? I have a [facility] place to live 12/31/2023 Education Answer Date Recorded What is the highest level of school you have completed or the highest degree you have received? 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 vit C,X-Aj-ghwgp-lut ein-zeaxan (PreserVision AREDS-2) 250-90-40-1 mg per capsule [...] Priority Date/Time Associated Diagnosis Comments CT HEAD VENOGRAM STEREOTACTIC SEEG WITH IV CONTRAST RAD - Routine (most inpatients and all outpatients) 05/20/2024 9:27 AM CDT Tremor Essential documented in this encounter Results * CT Head Venogram Stereotactic SEEG with [...] greater than right maxillary sinuses. us Barrington Mecrer M.D., Ph.D. IMG CT PROCEDURES Final Result documented in this encounter Visit Diagnoses Diagnosis Tremor Essential documented in this encounter Administered Medications Inactive Administered Medications - up to 3 most recent administrations Medication Order MAR Action Action Date Dose Rate Site iohexoL 350 mg iodine/mL solution 100 mL (Omnipaque) 100 mL, intravenous, Once in imaging, contrast, Starting on Gina 05/20/24 at 0856, For 1 dose Given 05/20/2024 9:02 AM CDT 100 mL sodium chloride (PF) 0.9 % injection 1-100 mL 1-100 mL, intravenous, Once, On Gina 05/20/24 at 0915, For 1 dose, Imaging Protocol Orders, Dose per Radiant Medication Guidelines Given 05/20/2024 9:02 AM CDT 30 mL documented in this encounter
--- OUTSIDE RECORDS SUMMARY | 2024-06-05 15:57 | XMS_ITS | Encounter Summary ---
Author Organization [facility] Address [address] [place] [address] Care Team Providers Care Drug Counselor Name Role Phone None Reported, Pcp Primary Care Provider Unavail able Reason for Visit * Auth/Cert (Routine) Specialty Diagnoses / Procedures Referred By Contac t Referred To Contact Diagnoses Tremor Essential Tremor Essential [G25.0] Procedures CO INS CRNL PULSE GEN 2+ CONNECT PLACEMENT NEUROSTIMULATOR - INFRACLAVICULAR SPACE Barrington Mercer M.D., Ph.D. 200 [place] [address] Phone: tel: fax: Referral ID Status Reason Start Date Expiration Date Visits Re quested Visits Authorized [id number] 1 1 Encounter Details Date Type Department Care Team (Late st Contact Info) Description 05/25/2024 2:18 PM CDT Anesthesia Event RST ROMB MAIN OR [address] [place] [phone] Wes Luis M.D. [address] [place] [phone] Anesthesia Record Procedure Summary Procedure Name Responsible Anesthesiologist Anesthesia Start Time Anesthesia Stop Time PLACEMENT NEUROSTIMULATOR, INFRACLAVICULAR SPACE. (Right) Wes Luis M.D. 05/25/24 1418 05/25/24 1634 Events Date Time Event Comment 05/25/2024 1418 An Start Machine/Equipme nt Checked Infection Precautions Followed Procedure/Site Verified NPO Status Verified Supine Standard ASA Monitors Applied 1425 An Induction 1427 An Intubation 1438 Turnover to Proceduralist 1515 Proc Start 1607 Proc Fin 1622 Turnover to ANE Staff 1622 Airway Removal Criteria Met 1622 Extubation/Airway Removed 1622 an stop data 1634 An End I completed my handoff to the receiving staff during which we 1. Identified the patient 2. Identified the responsible provider 3. Reviewed the pertinent medical history 4. Discussed the surgical course 5. Reviewed intra-op anesthesia management and issues during anesthesia 6. Set expectations for post-procedure period 7. Allowed opportunity for questions and acknowledgement of understanding. Meds Name Total fentanyl injection 50 mcg/mL 125 mcg lidocaine 2% (mg) injection 100 mg ondansetron 4 mg/2 mL injection 4 mg propofol 10 mg/mL infusion 819.89 mg propofol 10 mg/mL injection 200 mg ceFAZolin injection 2,000 mg (Ancef) 2 g acetaminophen injection 1,000 mg/100 mL (RESTRICTED) 1,000 mg Lactated Ringers Free Drip 500 mL * Agents No agents on file. * Blood No blood administrations on file. Lines, Drains, and Airways Type Details Placement Removal Wound 05/20/24; 1332; Inci kaela; Head (Comment); Left, Upper 05/20/24 1332 by Rambo Nolen R.N. Wound 05/20/24; 1333; N; Incision; IPSI(s) present (DBS Lead Boots X2); Head (Comment); Right, Upper 05/20/24 1333 by Rambo Nolen R.N. Wound 05/25/24; N; Incisio n; all IPSI(s) removed; Head (Comment); Lateral, Right, Upper; Incision for Placement of DBS Extension 05/25/24 0000 by Norma Riojas R.N. Wound 05/25/24; N; Incisio n; Chest; Right, Upper; Incision for Placement of DBS Neurostimulator 05/25/24 0000 by Norma Riojas R.N. Peripheral IV Placement Date: 09/17; Placement Time: 134; Catheter Size: 20 G; Orientation: Left, Posterior; Location: Hand; Site Prep: Chlorhexidine (Preferred); Technique: Anatomical landmarks; Inserted by: rosa; Insertion Attempts: 1; Removal Date: 05/25/24; Removal Time: 1740; Removal Reason: Completion of therapy 05/25/24 1345 by Olga Flores 05/25/24 174 by Delia Sood R.N. Supraglottic Airway Placement Date: 09/17; Placement Time: 1437 (created via procedure documentation); Mask Ventilation: Easy mask; Brand: Unique; Size: 4; Removal Date: 05/25/24; Removal Time: 162105/25/241437 by Shanel Corona M.D. 05/25/241621 by Shanel Corona M.D. documented in this encounter Social History Tobacco Use Types Packs/Day Years Used Date Smoking Tobacco: Never Passive Smoke Exposure: Never Smokeless Tobacco: Never Alcohol Use Standard Drinks/Week Comments Yes 4 (1 standard drink = 0.6 oz pure alcohol) Currently 3-4 glasses wine per week. (elimination diet) [facility] Refrek Incities Answer Date Recorded In the past 12 months has [employer], [employer], oil, or water [employer] threatened to shut off services in your [...] How often do you attend chur or holiness services? More than 4 times per year 12/06/2022 Do you belong to any clubs o r organizations such as mandaen groups, unions, fraternal or athletic groups, or [...] and heating? Not hard at all 12/06/2022 [facility] [place] of Occupat ional Health - Occupational Stress [...] your living situation today? I have a [facility] place to live 12/31/2023 Education Answer Date Recorded What is the highest level of school you have completed or the highest degree you have received? 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 - 05/25/2024 5:17 PM CDT Patient: Bryan Rivera Procedure Summary Date: 05/25/24 Room / Location: [address] [facility] / [facility] in [place], [place] Anesthesia Start: 1418 Anesthesia Stop: 163 Procedure: PLACEMENT NEUROSTIMULATOR, INFRACLAVICULAR SPACE. (Right) Diagnosis: Tremor Essential (Tremor Essential [G25.0].) Providers: Barrington Mercer M.D., Ph.D. Responsible Provider: Wes Luis M.D. Anesthesia Type: general ASA Status: 2 Anesthesia Type: general Last vitals Vitals Value Taken Time BP 131/58 05/25/24 1700 Temp 36.7 ??C 05/25/24 1630 Pulse 65 05/25/24 1713 Resp 12 05/25/24 1713 SpO2 92 % 05/25/24 1713 Vitals shown include unfiled device data. Please reference Vitals flowsheet for most recent vital signs. Anesthesia Post Evaluation Cardiovascular status: hemodynamics (HR & BP) acceptable Respiratory status: patent airway with spontaneous effort Temperature: normothermic Oxygen requirements: room air Level of consciousness: awake Pain score: pain adequately controlled and/or at baseline Post Op nausea/vomiting: none Hydration status: euvolemic Notable Events No notable events documented. * Anesthesia Procedure Notes - Shanel Corona M.D. - 05/25/2024 2:51 PM CDTAssociated Order(s): Airway Airway Date/Time: 05/25/2024 2:38 PM Performed by: Shanel Corona M.D. Authorized by: Wes Luis M.D. Patient location during procedure: OR / Procedure Area PROCEDURE DETAILS: Mask difficulty assessment: easy mask Final airway type: supraglottic airway Device size: 4 Number of attempt to successful placement: 1 Supraglottic device: LMA unique Supraglottic device size: 4 Airway confirmation: bilateral breath sounds, positive ETCO2 and bilateral chest rise Other previous techniques attempted: none PRE PROCEDURE DETAILS: Pre evaluation for airway management: procedure Urgency: elective Preop assessment of probable difficulty: no difficulty anticipated Preoxygenation: bag valve mask SEDATION / ANESTHESIA Anesthesia method: anesthesia POST PROCEDURE DETAILS: Procedure outcome: successful Notable Events: no complications * Anesthesia Preprocedure Evaluation - Wes Luis M.D. - 05/25/2024 2:08 PM CDT Preprocedure Anesthesia & H&P Assessment Procedure Summary Date/Time: 05/25/24 1311 Procedure: PLACEMENT NEUROSTIMULATOR, INFRACLAVICULAR SPACE. (Right) Diagnosis: Tremor Essential [G25.0] Pre-op diagnosis: Tremor Essential [G25.0]. Location: [place] [address] / [facility] in [place], [place] Providers: Barrington Mercer M.D., Ph.D. Pertinent components of the patient's history including current problem list, medical history, surgical history, family history, social history, medications and allergies were reviewed. Present illness and pre-op diagnosis were confirmed. The planned surgery / procedure was verified with the patient / legal guardian. The patient's general health condition remains unchanged RELEVANT COMORBID CONDITIONS No relevant active problems OBJECTIVE PHYSICAL EXAMINATION Airway (HEENT) Mallampati: II TM Distance: >3 FB Neck ROM: Full Mouth Opening: >3 cm Upper Lip Bite Test Class: I Cardiovascular Rhythm: Regular Rate: Normal Cardiovascular Assessment: cardiovascular normal Functional Capacity: >4 METS Pulmonary Pulmonary Assessment: Clear General / Constitutional Constitutional Assessment: Normal General State of Health:: healthy appearing and calm Neurological Neurologic Assessment: alert and alert and oriented x 3 Dental Dental Assessment: dentition intact ASSESSMENT / PLAN ANESTHESIA PLAN ASA: 2 Anesthesia Plan: general Patient seen and allergies reviewed, anesthesia plan and risks discussed directly with patient /legal guardian or through an biopharmaceutical rep. Risks/Benefits/Alternatives of Blood transfusion discussed with patient [...] MANAGEMENT Routine 05/25/2024 2:3 8 PM CDT documented in this encounter Results * Airway (05/25/2024 2:38 PM CDT) [...] Wes Luis M.D. ANESTHESIA ORDERABLES Final Result documented in this encounter Visit Diagnoses Not on filedocumented in this encounter Administered Medications Inactive Administered Medications - up to 3 most recent administrations Medication Order MAR Action Action Date Dose Rate Site acetaminophen injection intravenous, Administer over 15 Minutes, As needed, Starting on Fri05/25/24 at 1609, Anesthesia Intra-op Given 05/25/2024 4:09 PM CDT 1,000 mg ceFAZolin injection 2,000 mg (Ancef) 2,000 mg (rounded from 1,532.5 mg = [...] clearance factors., Indications: Prophylaxis, surgicalIndications:Prophylaxis, surgical Given 05/25/2024 2:42 PM CDT 2 g fentaNYL injection (Sublimaze) intravenous, As needed, Starting on Fri05/25/24 at 1425, Anesthesia Intra-op Given 05/25/2024 4:07 PM CDT 25 mcg Given 05/25/2024 2:25 PM CDT 100 mcg Lactated Ringer's intravenous, Continuous Infusion: Per Instructions PRN, Starting on Fri05/25/24 at 1418, Anesthesia Intra-op New Bag 05/25/2024 2:18 PM CDT lidocaine (PF) (cardiac) injection intravenous, As needed, Starting on Fri05/25/24 at 1425, Anesthesia Intra-op Given 05/25/2024 2:25 PM CDT 100 mg ondansetron (PF) injection (Zofran) intravenous, As needed, Starting on Fri05/25/24 at 1549, Anesthesia Intra-op Given 05/25/2024 3:49 PM CDT 4 mg propofol 10 mg/mL infusion (Diprivan) intravenous, Continuous Infusion: Per Instructions PRN, Starting on Fri05/25/24 at 1425, Anesthesia Intra-op Rate/Dose Change 05/25/2024 3:47 PM CDT 100 mcg/kg/min 36.78 mL/hr Rate/Dose Change 05/25/2024 3:38 PM CDT 125 mcg/kg/min 45. 975 mL/hr Rate/Dose Change 05/25/2024 3:10 PM CDT 150 mcg/kg/min 55. 17 mL/hr propofoL injection (Diprivan) intravenous, As needed, Starting on Fri05/25/24 at 1425, Anesthesia Intra-op Given 05/25/2024 3:29 PM CDT 30 mg Given 05/25/2024 3:15 PM CDT 20 mg Given 05/25/2024 2:25 PM CDT 150 mg documented in this encounter Care Teams Drug Counselor Relationship Specialty Start Date End Date None Reported, Pcp PCP - General Family Medicine 05/25/24 documented as of this encounter
--- OUTSIDE RECORDS SUMMARY | 2024-06-05 15:57 | XMS_ITS | Encounter Summary ---
Author Organization [facility] Address [address] [place] [address] Care Team Providers Care Protein Purification Scientist Name Role Phone None Reported, Pcp Primary Care Provider Unavail able Reason for Visit * Auth/Cert (Routine) Specialty Diagnoses / Procedures Referred By Contifeanyi t Referred To Contact Diagnoses Tremor Essential Tremor Essential [G25.0] Procedures IN INS CRNL PULSE GEN 2+ CONNECT PLACEMENT NEUROSTIMULATOR - INFRACLAVICULAR SPACE Barrington Mercer M.D., Ph.D. 200 [place] [phone] Phone: tel: fax: Referral ID Status Reason Start Date Expiration Date Visits Re quested Visits Authorized [id number] 1 1 Encounter Details Date Type Department Care Team (Latest Contact Info) Description 05/25/2024 10:36 AM CDT - 05/25/2024 6:03 PM CDT Hospital Encounter RST ROMB MAIN OR [address] [place] [phone] Barrington Mercer M.D., Ph.D. [address] [place] [phone] Discharge Disposition: Home or Self Care Social History Tobacco Use Types Packs/Day Years Used Date Smoking Tobacco: Never Passive Smoke Exposure: Never Smokeless Tobacco: Never Alcohol Use Standard Drinks/Week Comments Yes 4 (1 standard drink = 0.6 oz pure alcohol) Currently 3-4 glasses wine per week. (elimination diet) [facility] Utilities Answer Date Recorded In the past 12 months has th e [employer], [employer], oil, or water [employer] ([employer]) threatened to shut off services in your [...] How often do you attend chur or denominational services? More than 4 times per year 12/06/2022 Do you belong to any clubs o r organizations such as hindu groups, unions, fraternal or athletic groups, or [...] and heating? 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 vit C,H-Xa-yjttu-lut ein-zeaxan (PreserVision AREDS-2) 250-90-40-1 mg per capsule [...] Diagnosis Tremor Essential Post-op Diagnosis Tremor Essential Break And Load Operator A seo assistant actively participated and was necessary for one or more of the following: opening, exposure and visualization, maintaining hemostasis, wound closure resulting in its safe and expeditious completion. Findings As expected Complications None Operative Note Narrative The patient was brought to the operating room and positioned supine, induced under general anesthesia and intubated by our Anesthesia colleagues. The workforce services representative from [employer], and the presence of all needed hardware [...] 1:59 PM CDT Tremor Essential Case Notes Space And Storage Clerk 1050 documented in this encounter Visit Diagnoses Not on filedocumented in this encounter Admitting Diagnoses Diagnosis Tremor [...] use if given in last 6 hours chlorhexidine 0.12 % mouthwash 15 mL (Peridex) [...] if patient has an allergy to metoprolol. documented in this encounter Active and Recently [...] NPO) documented in this encounter Care Teams Protein Purification Scientist Relationship Specialty Start Date End Date None Reported, Pcp PCP - General Family Medicine 05/25/24 documented as of this encounter
--- OUTSIDE RECORDS SUMMARY | 2024-06-05 15:57 | XMS_ITS | Encounter Summary ---
Author Organization [facility] Address [address] [place] [address] Care Team Providers Care Program Specialist Name Role Phone None Reported, Pcp Primary Care Provider Unavail able Reason for Visit * Outpatient (Routine) - Closed Specialty Diagnoses / Procedures Referred By Rosita jose Referred To Contact Neurological Surgery Barrington Mercer M.D., Ph.D. [address] [place] [phone] Phone: tel: fax: [facility] Referral ID Status Reason Start Date Expiration Date Visits Re quested Visits Authorized [id number] Closed 03/24/2024 09/23/2025 1 1 Encounter Details Date Type Department Care Team (Late st Contact Info) Description 06/02/2024 10:30 AM CDT Office Visit Department of Neurologic Surgery in [place], [place] [address] [place] [phone] Barrington Mercer M.D., Ph.D. [address] [place] [phone] Tremor Essential (Primary Dx) Social History Tobacco Use Types Packs/Day Years Used Date Smoking Tobacco: Never Passive Smoke Exposure: Never Smokeless Tobacco: Never Alcohol Use Standard Drinks/Week Comments Yes 4 (1 standard drink = 0.6 oz pure alcohol) Currently 3-4 glasses wine per week. (elimination diet) [facility] Utilities Answer Date Recorded In the past 12 months has th e [employer], gas, oil, or water [employer] threatened to shut off services in your [...] often do you attend chur ch or yazidi services? More than 4 times per year 12/06/2022 Do you belong to any clubs o r organizations such as confucianist groups, unions, fraternal or athletic groups, or [...] and heating? Not hard at all 12/06/2022 [facility] of Occupat ional 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
--- OUTSIDE RECORDS SUMMARY | 2024-06-05 15:58 | XMS_ITS | Encounter Summary ---
Author Organization [facility] Address [address] [place] [address] Care Team Providers Care Elevator Starter Name Role Phone Unavailable Primary Care Provider Unavailabl e Reason for Visit * Outpatient (Routine) - Closed Specialty Diagnoses / Procedures Referred By Rosita t Referred To Contact Neurological Surgery Barrington Mercer M.D., Ph.D. [address] [place] [phone] Phone: tel: fax: [facility] Referral ID Status Reason Start Date Expiration Date Visits Re quested Visits Authorized [id number] Closed 03/24/2024 09/23/2025 1 1 Encounter Details Date Type Department Care Team (Late st Contact Info) Description 05/19/2024 11:00 AM CDT Office Visit Department of Neurologic Surgery in [place], [place] [address] [place] [phone] Barrington Mercer M.D., Ph.D. [address] [place] [phone] Tremor Essential (Primary Dx) Social History Tobacco Use Types Packs/Day Years Used Date Smoking Tobacco: Never Passive Smoke Exposure: Never Smokeless Tobacco: Never Alcohol Use Standard Drinks/Week Comments Yes 4 (1 standard drink = 0.6 oz pure alcohol) Currently 3-4 glasses wine per week. (elimination diet) [facility] Utilities Answer Date Recorded In the past 12 months has th e [employer], gas, oil, or water company threatened to [...] How often do you attend chur or adventism services? More than 4 times per year 12/06/2022 Do you belong to any clubs o r organizations such as episcopalian groups, unions, fraternal or athletic groups, or [...] and heating? Not hard at all 12/06/2022 [facility] [place] of Occupat ional Health - Occupational Stress [...] degree you have received? 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 - 05/19/2024 11:00 AM CDT SUBJECTIVE Neurosurgery Clinic visit. HISTORY OF PRESENT ILLNESS I saw Mrs. Rivera in my Neurosurgery Clinic today. She is a very pleasant 73-year-old right-handed woman with essential tremor who presents preoperatively prior to bilateral VIM DBS. Her symptoms remain consistent with her prior visits with me. ASSESSMENT / PLAN She has been evaluated by our Multidisciplinary Movement Disorders Committee, and been deemed appropriate for bilateral VIM DBS. I discussed this with her in great detail using pre-prepared images aswell as physical demonstration, and subsequently addressed each element of the consent. She provided written informed consent for this after a discussion which addressed all of her questions. Of note, the pulse generator will go on the RIGHT side. We will begin on the left side to treat her right-sided symptoms first. Please contact me with any questions, thank you for the referral of this very pleasant patient. Barrington Mercer M.D., Ph.D. CT CT Job ID: [id number] documented in this encounter Plan of Treatment Not on file documented as of this encounter Visit Diagnoses Diagnosis Tremor Essential- Primary documented in this encounter
--- OUTSIDE RECORDS SUMMARY | 2024-06-05 15:58 | XMS_ITS | Encounter Summary ---
Author Organization [facility] Address [address] [place] [phone] Care Team Providers Care Electrotype Molder Name Role Phone Unavailable Primary Care Provider Unavailabl e Encounter Details Date Type Department Care Team (Latest Contact Info) Description 05/19/2024 10:07 AM CDT - 05/19/2024 11:59 PM CDT Hospital Encounter Department of Laboratory Medicine and Pathology, [facility], in [place], [place] [address] [place] [phone] Barrington Mercer M.D., Ph.D. [address] [place] [phone] Tremor Essential Discharge Disposition: Home or Self Care Social History Tobacco Use Types Packs/Day Years Used Date Smoking Tobacco: Never Passive Smoke Exposure: Never Smokeless Tobacco: Never Alcohol Use Standard Drinks/Week Comments Yes 4 (1 standard drink = 0.6 oz pure alcohol) Currently 3-4 glasses wine per week. (elimination diet) [facility] Utilities Answer Date Recorded In the past 12 months has th e electric, gas, oil, or water company [...] How often do you attend chur or protestant services? More than 4 times per year 12/06/2022 Do you belong to any clubs o r organizations such as mormonism groups, unions, fraternal or athletic groups, or [...] and heating? Not hard at all 12/06/2022 [facility] of Occupat ional Health - Occupational Stress [...] your living situation today? I have a [facility] place to live 12/31/2023 Education Answer Date Recorded What is the highest level of school you have completed or the highest degree you have received? 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 vit C,L-Jg-roznm-lut ein-zeaxan (PreserVision AREDS-2) 250-90-40-1 mg per capsule Take 1 tablet by mouth 2 (two) times a day. 03/12/2022 cefadroxil (Duricef) 500 mg capsule Take 1 capsule (500 mg total) by mouth 2 (two) times a day for 5 days. 10 capsule 05/21/2024 1:01 PM CDT 05/20/2024 scopolamine base (Transderm-Scop) 1 mg over [address] 1 patch on the skin every third day for 9 days. 3 patch 05/21/2024 1:01 PM CDT 05/21/2024 4 ibuprofen 200 mg tablet Take 400 mg by mouth every 6 (six) hours as needed for pain. 4 methocarbamoL (Robaxin) 750 mg tablet Take [...] Procedure Name Priority Date/Time Associated Diagnosis Comments CBC WITH DIFFERENTIAL, B Routine 05/19/2024 10:35 AM CDT Tremor Essential BASIC METABOLIC PANEL, S/P Routine 05/19/2024 10:35 AM CDT Tremor Essential documented in this encounter Results * (ABNORMAL) Basic Metabolic Panel (05/19/2024 10:35 [...] M.D., Ph.D. LAB BLOOD ADD-ON Final Result [facility] 200 [place] [address], [facility] 200 [place] [address] * CBC with Differential, Blood (05/19/2024 10:35 AM CDT) Pathologist [facility] Hemoglobin 13.4 11.6 - 15.0 g/dL [...] M.D., Ph.D. LAB BLOOD ADD-ON Final Result [facility] [address] [place] [address], [place] DTL [facility] [address] [place] [address] DHPM [facility] [address] [place] [address] documented in this encounter Visit Diagnoses Diagnosis Tremor Essential documented in this encounter
--- OUTSIDE RECORDS SUMMARY | 2024-06-05 15:58 | XMS_ITS | Encounter Summary ---
Author Organization [facility] Address [address] [place] [address] Care Team Providers Care Informatics Educator Name Role Phone Unavailable Primary Care Provider Unavailabl e Reason for Referral * Outpatient (Routine) - Closed Specialty Diagnoses / Procedures Referred By Contac t Referred To Contact Neurological Surgery Barrington Mercer M.D., Ph.D. 200 [place] [phone] Phone: tel: fax: [facility] Referral ID Status Reason Start Date Expiration Date Visits Re quested Visits Authorized [id number] Closed 03/24/2024 09/23/2025 1 1 Scheduling Instructions Schedule before DBS appt if possible. Okay to convert to VV if unable to coordinate. * Specialty Diagnoses / Procedures Referred By Contac t Referred To Contact Diagnoses Tremor Essential RST [facility] [address] [place] [phone] Phone: tel: [facility] Referral ID Status Reason Start Date Expiration Date Visits Re quested Visits Authorized Scheduling Instructions Coordinate with Mercer appt 2-4 weeks post-op * Outpatient (Routine) - Closed Specialty Diagnoses / Procedures Referred By Contac t Referred To Contact Neurological Surgery Barrington Mercer M.D., Ph.D. [address] [place] [phone] Phone: tel: fax: [facility] Referral ID Status Reason Start Date Expiration Date Visits Re quested Visits Authorized [id number] Closed 03/24/2024 09/23/2025 1 1 * Outpatient (Routine) - Closed Specialty Diagnoses / Procedures Referred By Contac t Referred To Contact Anesthesiology Diagnoses Tremor Essential Brarington Mercer M.D., Ph.D. [address] [place] [phone] Phone: tel: fax: [facility] Referral ID Status Reason Start Date Expiration Date Visits Re quested Visits Authorized [id number] Closed 03/24/2024 09/23/2025 1 1 * MRI/CAT/PET Scan (Routine) - Closed Specialty Diagnoses / Procedures Referred By Contac t Referred To Contact Radiology Diagnoses Tremor Essential Procedures CT Head without IV Contrast Barrington Mercer M.D., Ph.D. [address] [place] [phone] Phone: tel: fax: [facility] Referral ID Status Reason Start Date Expiration Date Visits Re quested Visits Authorized [id number] Closed 03/24/2024 03/24/2025 1 1 * MRI/CAT/PET Scan (Routine) - Closed Specialty Diagnoses / Procedures Referred By Contac t Referred To Contact Radiology Diagnoses Tremor Essential Procedures CT Head Venogram Stereotactic SEEG with IV Contrast Barrington Mercer M.D., Ph.D. [address] [place] [phone] Phone: tel: fax: [facility] Referral ID Status Reason Start Date Expiration Date Visits Re quested Visits Authorized [id number] Closed 03/24/2024 03/24/2025 1 1 Encounter Details Date Type Department Care Team (Late st Contact Info) Description 03/24/2024 Clinical Communication Department of Neurologic Surgery in [place], [place] [address] [place] [phone] Barrington Mercer M.D., Ph.D. [address] [place] [phone] Social History Tobacco Use Types Packs/Day Years Used Date Smoking Tobacco: Never Smokeless Tobacco: Never Alcohol Use Standard Drinks/Week Comments Yes 0 (1 standard drink = 0.6 oz pur e alcohol) [facility] Utilities Answer Date Recorded In the past 12 months has [facility] [employer], gas, oil, or water [employer] threatened to shut off services in your [...] How often do you attend chur or jewish services? More than 4 times per year [...] and heating? Not hard at all 12/06/2022 [facility] [place] of Occupat ional Health - Occupational Stress [...] your living situation today? I have a [facility] place to live 12/31/2023 Education Answer Date Recorded What is the highest level of school you have completed or the highest degree you have received? 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 Gender Identity Female 02/10/2020 9:11 PM CDT Sexual Orientation Straight 02/10/2020 9: 11 PM CDT documented as of this encounter Plan of Treatment Scheduled Referrals Name Type Priority Associated Diagnoses Order Schedule Preoperative Evaluation FERNANDO consult (clinic) Outpatient Referral Routine Tremor Essential Expected: 05/19/2024, Expires: 06/24/2025 Neurological Surgery Pre Op (clinic) Outpatient Referral Routine Expected: 05/19/2024, Expires: 06/24/2025 Neurology - Post DBS programming visit (clinic) Outpatient Referral Routine Tremor Essential Expected: 06/02/2024 (Approximate), Expires: 06/24/2025 Neurological Surgery Post Op (clinic) Outpatient Referral Routine Expected: 06/02/2024 (Approximate), Expires: 06/24/2025 documented as of this encounter Results * CT Head without [...] Ph.D. IMG CT PROCEDURES Final Result * CT Head Venogram Stereotactic [...] Ph.D. IMG CT PROCEDURES Final Result * (ABNORMAL) Basic Metabolic Panel (05/19/2024 10:35 [...] M.D., Ph.D. LAB BLOOD ADD-ON Final Result [facility] [address] [place] [address], [facility] DTL [facility] [address] [place] [address] * CBC with Differential, Blood (05/19/2024 10:35 [...] M.D., Ph.D. LAB BLOOD ADD-ON Final Result [facility] [address] [place] [address], [facility] DTL [facility] [address] [place] [address] [facility] 200 [place] [address] documented in this encounter Visit Diagnoses Diagnosis Tremor Essential- Primary Tremor Essential Tremor Essential documented in this encounter
--- OUTSIDE RECORDS SUMMARY | 2024-06-05 15:58 | XMS_ITS | Encounter Summary ---
Author Organization [facility] Address [address] [place] [address] Care Team Providers Care Rivet Machine Operator Name Role Phone Unavailable Primary Care Provider Unavailabl e Reason for Visit * Auth/Cert (Routine) Specialty Diagnoses / Procedures Referred By Contac t Referred To Contact Diagnoses Tremor Essential Tremor Essential [G25.0] Procedures WI INS CRNL PULSE GEN 2+ CONNECT APPLICATION STEREOTACTIC HEAD FRAME. CTV to follow headframe placement. PLACEMENT NEUROSTIMULATOR DEEP BRAIN - VIM Barrington Mercer M.D., Ph.D. [address] [place] [phone] Phone: tel: fax: Referral ID Status Reason Start Date Expiration Date Visits Re quested Visits Authorized [id number] 1 1 Encounter Details Date Type Department Care Team (Late st Contact Info) Description 05/20/2024 7:25 AM CDT - 05/20/2024 12:30 PM CDT Surgery [facility] [address] [place] [phone] Barrington Mercer M.D., Ph.D. [address] [place] [phone] APPLICATION STEREOTACTIC HEAD FRAME, CTV to follow headframe placement. Social History Tobacco Use Types Packs/Day Years Used Date Smoking Tobacco: Never Passive Smoke Exposure: Never Smokeless Tobacco: Never Alcohol Use Standard Drinks/Week Comments Yes 4 (1 standard drink = 0.6 oz pure alcohol) Currently 3-4 glasses wine per week. (elimination diet) [facility] Utilities Answer Date Recorded In the past 12 months has e [employer], gas, oil, or water [employer] threatened to shut off services in your [...] week 12/06/2022 How often do you attend [facility] or evangelical services? More than 4 times per year 12/06/2022 Do you belong to any clubs o r organizations such as advent groups, unions, fraternal or athletic groups, or [...] and heating? 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18 05/20/2024 6:55 AM CDT documented in this encounter Discharge Summaries * Kelvin [place] M.D. - 05/21/2024 5:03 AM CDT DISCHARGE SUMMARY BRIEF OVERVIEW Hospital: [facility] Discharge Provider: Barrington Mercer M.D. Primary Team: [facility] Neurologic Surgery - Ruslan No primary care [...] Appointments 06/02/2024 8:00 AM [facility] N[facility] 01 JJ 08; [facility] Neurology 06/02/2024 10:30 AM Barrington Mercer M.D., [...] through Care Everywhere. * Cefadroxil (By mouth) (Comoran) * Ondansetron (By mouth, Into the mouth) (Comoran) * Oxycodone, Rapid Release (By mouth) (Comoran) * Acute Pain and the Healing Process (Comoran) * Important Information About Opioid Medications (Comoran) * Scopolamine (Absorbed through the skin) (Comoran) documented in this encounter Medications at Time [...] by mouth daily with morning meal. vit C,G-Yb-jfetc-lut ein-zeaxan (PreserVision AREDS-2) 250-90-40-1 mg per capsule [...] Code Please page Dr. Mercer's service at [phone] with any questions or concerns. Electronically signed [...] Code Please page Dr. Mercer's service at [phone] with any questions or concerns. Electronically signed [...] by mouth daily with morning meal. vit C,G-Bw-ygewh-lutein-zeaxan (PreserVision AREDS-2) 250-90-40-1 mg per capsule -- [...] Endorses intact sensation BUE + BLE Kelvin Washington M.D. Source Note - Sheree Tran APRN, C.N.P. - 05/10/2024 11:00 AM CDT REASON [...] from 05/10/2024 in Preoperative Evaluation Center in [place], [place] DASI Total Score 36.7 Estimated V02 [...] of surgery. She is active going to [address] [place] [address], which is a senior center and working out for 15 minutes on the [employer] and then doing 10 minutes of rowing [...] Get Ready for Your Surgery or Procedure: [facility]?? [id number] rev 0124. Verbal instructions given on medication management before surgery. Reviewed instructions on avoiding aspirin, ibuprofen-containing medications, and supplements one week before surgery. Patient may take acetaminophen as needed for pain. Evening before your surgery: The evening before your procedure at about 8:15 p.m. [facility] will inform you of the time to arrive the next day using one of these methods: - A text -or- An automated phone call If you have not received a text or a phone call by 8:45 p.m. or if you prefer to call after 8:15 p.m. to get the information: - Please call [phone] (automated) or [phone] (live furnace operator oil or gas) to learn report time for surgery next day. Phone system will ask for [facility] number and date of . Fasting for [...] technology by Sheree Tran APRN, C.N.David in [facility] to the patient in the patient's [...] Electrode(s): bilateral Vim nucleus of the thalamus treadalong [id number] (Cartesia 8-contact field-steering) implanted on 05/20/2024. Associated IPG: treadalong Genus R16 (DB-[id number]) planned for implantation in [...] family. IV removed. Pres[facility] picked [facility] at [facility] to take with them. Discharge education and [...] Diagnosis Tremor Essential Post-op Diagnosis Tremor Essential Radio Program Checker A assistant spa manager actively participated and was necessary for one [...] the Leksell frame were obtained from the [employer] planning station. A planning fluoroscopic image was used to confirm a true lateral position of the Leksell, and the Leksell arc was used to determine entry sites. Independent incisions were planned for each entry sites. The arc was then removed, and thepatient's head was prepped and draped in the standard fashion. A fountain worker-out was then performed. The planned incisions were [...] situ and advanced toward target using the [employer] micro drive. For a full description of [...] situ and advanced toward target using the [employer] micro drive. At the end of the [...] encounter Miscellaneous Notes * Hospital Course - [place], Kelvin Larsen M.D. - 04/07/2024 2:16 PM CDT Bryan Rivera is a 73 y.o. female w H anxiety, fecal + urinary incontinence, restless leg [...] - 05/20/2024 10:11 AM CDT Cassidy Aleman M.B.BLauraS. ? 05/20/2024 ??5:37 PM IONM - Movement Performed by: Cassidy Aleman M.BLauraBLauraS. Authorized by: Barrington Mercer M.D., Ph.D. ?? us Barrington Mercer M.D., Ph.D. PROCEDURE/MINOR SURGICA L ORDERABLES Final Result documented in this encounter Visit Diagnoses Diagnosis Tremor Essential- Primary Tremor Essential Tremor Essential documented in this encounter Admitting Diagnoses Diagnosis Tremor Essential documented in this encounter Administered Medications Inactive Administered Medications - up to 3 most recent administrations Medication Order MAR Action Action Date Dose Rate Site acetaminophen tablet 1,000 mg (TylenoL) 1,000 mg, oral, 4 times daily, First dose on Fri05/20/24 at 1700 Given 05/21/2024 7:36 AM CDT 1,000 mg Given 05/20/2024 9:47 PM CDT 1,000 mg Given 05/20/2024 5:08 PM CDT 1,000 mg benzocaine-menthoL 15-3.6 mg per lozenge 1 lozenge (CepacoL) 1 lozenge, oral, As needed, sore throat, throat irritation, Starting on Fri05/20/24 at 1507 Given 05/21/2024 7:36 AM CDT 1 lozenge bisacodyL suppository 10 mg (Dulcolax) 10 mg, rectal, Daily PRN, constipation, Starting on Fri05/20/24 at 1507, Ordered sequence of administration: polyethylene glycol, then bisacodyl until BM achieved. FUJjgmndzvm-jltktlyjf-ebaxjnwrurc 0.25%-0.5%-1:200,000 injection (Romaine 2 alternative) 50 mL, subcutaneous, Once, On Fri05/20/24 at 0815, For 1 dose, Intra-Op Given 05/20/2024 9:34 AM CDT 29 mL Scalp ceFAZolin injection 2 g (Ancef) 2 g, intravenous, Every 8 hours, First dose on Fri05/20/24 at 2200, For 3 doses, Start within [...] Given 05/20/2024 10:10 PM CDT 2 g hydrALAZINE tablet 25 mg (Apresoline) 25 mg, oral, Every 6 hours PRN, high blood pressure; see admin instructions, Starting on Fri05/20/24 at 1507, Hold for heart rate greater [...] Given 05/21/2024 1:42 AM CDT 10 mg magnesium hydroxide suspension 30 mL (Milk of [...] Do NOT crush, chew or open capsule. rOPINIRole tablet 1 mg (Requip) 1 mg, [...] Given 05/20/2024 9:47 PM CDT 2 tablets thrombin (human plasma)-ybbtwfzopa-tloywzbxb-Ma topical solution (Tisseel [facility]) As needed, Starting on Fri05/20/24 at 1100, Intra-Op Given 05/20/2024 11:00 AM CDT 4 mL vancomycin powder As needed, Starting on Fri05/20/24 at 1321, Intra-Op Given 05/20/2024 1:21 PM CDT 1 g venlafaxine XR 24 hr capsule 150 mg [...] 1700 1708 (Given - Provider: Kulwant Bryan R.N.)2147 (Given - Provider: Taisha Orozco, R.N.) 0736 (Given - Provider: Kait Romero RAnthony)1200 (Due) EHSjkjhfquc-ibqpwbvjh-ojw nephrine 0.25%-0.5%-1:200,000 injection (Romaine 2 alternative) (COMPLETED) 50 mL, subcutaneous, Once, On Fri05/20/24 at 0815, For 1 dose, Intra-Op 0815 [...] RLauraN.) 0502 (Given - Provider: Taisha Orozco RLauraN.) ceFAZolin injection 2,000 mg (Ancef) (COMPLETED) 2,000 [...] 1005 (Given - Provider: Camilla Julien APRN, CRNA - Comment: 400 mg test dose given first)1253 (Given - Provider: Camilla Julien APRN, DIANE) levETIRAcetam in NaCl (iso osm) IVPB 1,000 mg (Keppra) (COMPLETED) 1,000 mg, intravenous, at 300 mL/hr, Administer over 20 Minutes, Once, On Gina 05/20/24 at 0700, For 1 dose, Intra-Op 0931 (Given - Provider: Camilla Julien APRN, DIANE) polyethylene glycol powder packet 17 g (Miralax) 17 g, oral, Daily, First dose on Fri05/21/24 at 0900, Ordered sequence of administration: polyethylene glycol, then bisacodyl until BM achieved. Avoid mixing with starch-based thickened liquids., Indications: constipation 0[facility] Kait Romero [facility] primidone tablet 250 mg (Mysoline) 250 mg, oral, 2 times daily, First dose on Fri05/20/24 at 2100 2146 (Given - Provider: Taisha Orozco R.N.) 0810 (Given - Provider: Kait Romero R.N.) propranoloL 24 hr capsule 60 mg (InderaL LA) 60 mg, oral, Daily at bedtime, First dose (after last reorder) on Fri05/21/24 at 2100, Swallow whole. Do NOT crush, chew or open capsule. propranoloL tablet 60 mg (InderaL) (CANCELED) 60 mg, oral, Daily at bedtime, First dose (after last modification) on Fri05/20/24 at 2100 2146 (Given - Provider: Taisha Orozco R.N.) rOPINIRole tablet 1 mg (Requip) 1 mg, oral, Daily at bedtime, First dose (after last modification) on Fri05/20/24 at 2100 2145 (Given - Provider: Taisha Orozco R.N.) sennosides-docusate sodium 8.6-50 mg per tablet 2 tablet (Senokot-S) 2 tablet, oral, 2 times daily, First dose on Fri05/20/24 at 2100, For constipation. Hold for diarrhea. 2146 (Given - Provider: Taisha Orozco R.N.) 0810 (Given - Provider: Kait Romero R.N.) venlafaxine XR 24 hr capsule 150 mg (Effexor-XR) 150 mg, oral, Daily with morning meal, First dose on Fri05/21/24 at 0800, Swallow whole. Do NOT crush, chew or open capsule. 0811 (Given - Provider: Kait Romero R.N.) Continuous Medication Order 05/19/2024 05/20/2024 05/21/2024 Lactated Ringer's () 80 mL/hr, intravenous, Continuous, Starting on Fri05/20/24 at 1530, For 12 hours 1535 (New Bag - Provider: Joan Bryan R.N.) PRN Medication Order 05/19/2024 05/20/2024 05/21/2024 acetaminophen [...] 1428 (New Bag - Provider: Sury Longoria R.N.) benzocaine-menthoL 15-3.6 mg per lozenge 1 lozenge [...] prochlorperazine) 1712 (Given - Provider: Carole Bryan RAnthony) scopolamine base 1 mg over 3 days 1 patch (Transderm-Scop) 1 patch, transdermal, Administer over 72 Hours, Every 72 hours PRN, nasuea, vertigo, Starting on Gina 05/20/24 at 2111, Contains 1.5 mg to deliver 1 mg/72 hours. 0444 (Medication Mariela lied - Provider: Taisha Orozco RAnthony)1303 (Due: Medication Removed - Provider: Discharge Provider, Automatic - Comment: Time automatically adjusted from order being discontinued) thrombin (human plasma)-fibrinogen-aprotini n-Ca topical solution (Tisseel [facility]) (CANCELED) As needed, Starting on Gina 05/20/24 [...]
--- OUTSIDE RECORDS SUMMARY | 2024-06-05 15:58 | XMS_ITS | Encounter Summary ---
Author Organization [facility] Address [address] [place] [address] Care Team Providers Care Women'S Studies Professor Name Role Phone Unavailable Primary Care Provider Unavailabl e Reason for Visit * Outpatient (Routine) - Closed Specialty Diagnoses / Procedures Referred By Contac t Referred To Contact Anesthesiology Diagnoses Tremor Essential Barrington Mercer M.D., Ph.D. [address] [place] [phone] Phone: tel: fax: [facility] Referral ID Status Reason Start Date Expiration Date Visits Re quested Visits Authorized [id number] Closed 03/24/2024 09/23/2025 1 1 Encounter Details Date Type Department Care Team (Latest Contact Info) Description 05/10/2024 11:00 AM CDT Telemedicine Preoperative Evaluation Center in [place], [place] [address] [place] [phone] Barrington Mercer M.D., Ph.D. [address] [place] [phone] Sheree Tran APRN, C.N.P. [facility] [address] [place] [address] Preanesthetic Medical Exam (Primary Dx); Tremor Essential; Repeated Falls; Snoring; Restless Leg Syndrome; Anxiety; Osteoporosis Social History Tobacco Use Types Packs/Day Years Used Date Smoking Tobacco: Never Passive Smoke Exposure: Never Smokeless Tobacco: Never Alcohol Use Standard Drinks/Week Comments Yes 4 (1 standard drink = 0.6 oz pure alcohol) Currently 3-4 glasses wine per week. (elimination diet) [facility] Utilities Answer Date Recorded In the past 12 months has [facility] [employer], [employer], or water [employer] threatened to shut off services in your [...] How often do you attend chur or christian services? More than 4 times per year 12/06/2022 Do you belong to any clubs o r organizations such as oriental orthodox groups, unions, fraternal or athletic groups, or [...] and heating? 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 - 05/10/2024 11:00 [...] from 05/10/2024 in Preoperative Evaluation Center in [place], [place] DASI Total Score 36.7 Estimated V02 [...] of surgery. She is active going to [address] [place] [address], which is a [employer] [place] center and working out for 15 minutes on the [employer] and then doing 10 minutes of rowing [...] Get Ready for Your Surgery or Procedure: [facility]?? [id number] rev 0124. Verbal instructions given on medication management before surgery. Reviewed instructions on avoiding aspirin, ibuprofen-containing medications, and supplements one week before surgery. Patient may take acetaminophen as needed for pain. Evening before your surgery: The evening before your procedure at about 8:15 p.m. [facility] will inform you of the time to arrive the next day using one of these methods: - A text -or- An automated phone call If you have not received a text or a phone call by 8:45 p.m. or if you prefer to call after 8:15 p.m. to get the information: - Please call [phone] (automated) or [phone] (live casting machine operator) to learn report time for surgery next day. Phone system will ask for [facility] number and date of . [...] real-time audio/video technology by Sheree Tran APRN, C.N.P. in [facility] to the patient in the patient's home. documented in this encounter Plan of Treatment Not on file documented as of this encounter Visit Diagnoses Diagnosis Preanesthetic Medical Exam- Primary Tremor Essential Repeated Falls Snoring Restless Leg Syndrome Anxiety Osteoporosis documented in this encounter
--- OUTSIDE RECORDS SUMMARY | 2024-06-05 15:58 | XMS_ITS | Encounter Summary ---
Author Organization [facility] Address [address] [place] [address] Care Team Providers Care Unix Manager Name Role Phone Unavailable Primary Care Provider Unavailabl e Reason for Visit * Reason Onset Date Comments Question about dental cleaning 04/27/2024 Encounter Details Date Type Department Care Team (Latest Contact Info) Description 04/27/2024 Clinical Communication Department of Neurologic Surgery in [place], [place] [address] [place] [phone] Barrington Mercer M.D., Ph.D. [address] [place] [phone] Question about dental cleaning Social History Tobacco Use Types Packs/Day Years Used Date Smoking Tobacco: Never Smokeless Tobacco: Never Alcohol Use Standard Drinks/Week Comments Yes 0 (1 standard drink = 0.6 oz pur e alcohol) [facility] Utilities Answer Date Recorded In the [...] week 12/06/2022 How often do you attend [facility] or mandaeism services? More than 4 times per year 12/06/2022 Do you belong to any clubs o r organizations such as congregation groups, unions, fraternal or athletic groups, or [...] and heating? Not hard at all 12/06/2022 [facility] of Occupat ional Health - Occupational Stress [...] living situation today? I have a [facility] place to live 12/31/2023 Education Answer Date Recorded What is the highest level of school you have completed or the highest degree you have received? 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 - 04/28/2024 12:25 PM CDT SUBJECTIVE CHIEF COMPLAINT / REASON FOR CALL Question about dental cleaning Information Discussed Bryan Rivera was contacted regarding her questions. Mrs. Rivera will be 4 weeks post DBS implantation at the time of her Dental cleaning. She may proceed with the appointment as long as she has healed from her DBS surgery. Dr. Mercer recommends taking an antibiotic 1 hour prior to her dental appointment. We will hold off on prescribing this until after DBS surgery. PLAN Disposition/Recommendation: recommended continue engagement in self-management activities Information/Education: patient/caller able to teach back Caller agreeable to plan of care: yes The following references were used: nursing clinical judgement * Telephone Encounter - Sloane Alas - 04/27/2024 11:43 AM CDT Caller Name/Relationship to Patient: Self Auth on file: Yes. Date of service: n/a Provider/RN Name: Ruslan Reason for Call: She is having DBS procedure done May 20 and May 25. She has an dental appointment Jun 23. Can shekeep her dental appointment on Jun 23? How to contact back: [phone] documented in this encounter Plan of Treatment Not on file documented as of this encounter Visit Diagnoses Not on filedocumented in this encounter
--- OUTSIDE RECORDS SUMMARY | 2024-06-05 15:58 | XMS_ITS | Encounter Summary ---
Author Organization [facility] Address [address] [place] [address] Care Team Providers Care Security Architect Name Role Phone Unavailable Primary Care Provider Unavailabl e Reason for Visit * Outpatient (Routine) - Closed Specialty Diagnoses / Procedures Referred By Rosita jose Referred To Contact Neurological Surgery Diagnoses Tremor Essential Joshua Brooks M.D. [address] [place] [phone] Phone: tel: fax: [facility] Referral ID Status Reason Start Date Expiration Date Visits Re quested Visits Authorized [id number] Closed 07/14/2023 2024 1 1 Encounter Details Date Type Department Care Team (Latest Contact Info) Description 03/03/2024 10:00 AM CDT Comprehensive Visit Department of Neurologic Surgery in [place], [place] [address] [place] [phone] Barrington Mercer M.D., Ph.D. [address] [place] [phone] Tremor Essential Social History Tobacco Use Types Packs/Day Years Used Date Smoking Tobacco: Never Smokeless Tobacco: Never Alcohol Use Standard Drinks/Week Comments Yes 0 (1 standard drink = 0.6 oz pur e alcohol) [facility] Utilities Answer Date Recorded In the past [...] How often do you attend chur or jew services? More than 4 times per year 12/06/2022 Do you belong to any clubs o r organizations such as sikh groups, unions, fraternal or athletic groups, or [...] and heating? Not hard at all 12/06/2022 [facility] - Occupational Stress Questionnaire Answer [...] living situation today? I have a [facility] place to live 12/31/2023 Education Answer Date Recorded What is the highest level of school you have completed or the highest degree you have received? Master's degree (e.g., MA, MS, Lin, MEd, MACHINE PIE MAKER, JAKY) 02/10/2020 Comments No Sex and Gender Information Value Date Recorded Sex Assigned at Female 05/31/2021 9:13 PM CDT Legal Sex Female 8:54 PM PATIENT ACCESS REPRESENTATIVE Gender Identity Female 02/10/2020 9:11 PM CDT Sexual Orientation Straight 02/10/2020 9: 11 PM CDT documented as of this encounter Consult Notes * Barrington Mercer M.D., Ph.D. - 03/03/2024 10:00 AM CDT SUBJECTIVE Neurosurgery Clinic visit. HISTORY OF PRESENT ILLNESS I saw Ms. Rivera in my Neurosurgery Clinic today by way of video visit. She is a very pleasant 73-year-old right-handed woman with essential tremor that started on the right side in her 30s. She notes that her mother, her sister, and her maternal grandfather all had or have tremor. She has tried a number of medications for this including atenolol, propranolol, primidone, gabapentin and topiramate. These are unable to fully control her tremor, and it significantly impacts her life including difficulties with handwriting, feeding herself, cooking, and her hobbies. I would refer the reader to the excellent note by my colleague, Dr. Joshua Brooks, from February 18, 2024, which discusses her tremor history, current presentation, and ongoing management. OBJECTIVE PHYSICAL EXAMINATION Neurologic: On examination for me today, I note that she has a no-no tremor of her head, a voice component, and some tremoring in her jaw. She has no discernible rest tremor, but does have a 3-4 postural tremor that is worse on the left than the right, and which is also present during intention. She also has significant issues with her gait, and these are noted by Dr. Brooks, and I would refer the reader to his comprehensive examination which details this. ASSESSMENT / PLAN I discussed both focused ultrasound as well as essential tremor with her. I used physical demonstration as well as preprepared images for the conversation, and I discussed what to expect before, during, and after the intervention. At the conclusion of this conversation, she indicated her desire to proceed with intervention, and a preference for deep brain stimulation. I do think that deep brain stimulation would be a better option for her given the fact that her symptoms are bilateral, she has a significant head component, voice component, and gait difficulties. She does lead an independent life, and I believe that deep brain stimulation could help preserve that. I look forward to discussing bilateral VIM DBS, as well as potentially essential tremor, with our Multidisciplinary Movement Disorder Committee. I am very grateful to be involved with her care, thank you for referring her to me. Barrington Mercer M.D., Ph.D. CT CT Job ID: [id number] documented in this encounter Plan of Treatment Not on file documented as of this encounter Visit Diagnoses Diagnosis Tremor Essential documented in this encounter
--- OUTSIDE RECORDS SUMMARY | 2024-06-05 15:58 | XMS_ITS | Encounter Summary ---
Author Organization [facility] Address [address] [place] [address] Care Team Providers Care Manufacturing Laborer Name Role Phone Unavailable Primary Care Provider Unavailabl e Reason for Visit * Reason Comments Neurology DBS Conference Encounter Details Date Type Department Care Team (Late st Contact Info) Description 03/09/2024 Documentation Department of Neurology in [place], [place] [address] [place] [phone] Joshua Brooks M.D. [address] [place] [phone] Neurology DBS Conference Social History Tobacco Use Types Packs/Day Years Used Date Smoking Tobacco: Never Smokeless Tobacco: Never Alcohol Use Standard Drinks/Week Comments Yes 0 (1 standard drink = 0.6 oz pur e alcohol) [facility] Utilities Answer Date Recorded In [...] How often do you attend chur or voodoo services? More than 4 times per year 12/06/2022 Do you belong to any clubs o r organizations such as anabaptism groups, unions, fraternal or athletic groups, or [...] and heating? Not hard at all 12/06/2022 [facility] [place] of Occupat ional Health - Occupational Stress [...] your living situation today? I have a [facility] place to live 12/31/2023 Education Answer Date Recorded What is the highest level of school you have completed or the highest degree you have received? 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 - 03/09/2024 6:43 AM CDT ASSESSMENT / PLAN #1 Essential tremor, medication refractory #2 Mild gait ataxia (query related to ET vs primidone) Bryan Deonna Miguel's case was discussed at the Neuromodulation Committee meeting. She has a history ofmedically-refractory upper limb and head tremors in the context of a strong family history of essential tremor. Tremor has not responded to trials of propranolol, primidone, atenolol, gabapentin, andtopiramate. The workup done during her visits here was discussed. The DBS neurology team thought that her tremor was unlikely to respond to additional trials of medication and the tremor itself had an essential tremor phenotype. The patient was also noted to have mild gait ataxia on exam and a history of some imbalance with occasional falls. This was thought either related to primidone versus perhaps relatedto her specific essential tremor phenotype. I thought that bilateral VIM thalamic deep brain stimulation would be most appropriate given her degree of midline tremor and pre-existing gait ataxia; if she really favored MRgFUS thalamotomy an option would be for her to come off of primidone and see what happens with the gait. The patient was seen by Dr. Barrington Mercer of Neurosurgery who thought that bilateral VIM thalamic deepbrain stimulation would likely be an option for her, with MRgFUS thalamotomy being a bit less favored because of the gait issues and her tremor phenotype. Nurse education was received, and videotaped standardized scales showed an modified Yahe-Evrlfr-Rbxfi tremor rating scale score of 11. A movement disorders neurophysiology study revealed findings consistent with an organic essential tremor. A review by our Speech Pathologist medical record consultant documented a mild vocal tremor. Neuropsychometric testing was a bit difficult to interpret due to variability potentially secondaryto discouragement leading to fluctuating engagement during testing. However, on the whole there wasnot thought to be a clear contraindication to neurosurgical management of her tremor. An MRI of the brain showed age commensurate brain parenchymal volume loss. Chronic microvascular angiopathic change. Based on the review, the committee members decided that Mrs. Rivera is approved for bilateral Vim thalamic DBS. If she would strongly prefer MRgFUS thalamotomy we would need to visit with her furtherand probably have her wean off of primidone to assess the underlying degree of gait instability. Our team will communicate that with the patient and our neurosurgical colleagues will arrange for scheduling a procedure should she remain interested in moving forward. documented in this encounter Plan of Treatment Not on file documented as of this encounter Visit Diagnoses Not on filedocumented in this encounter
--- OUTSIDE RECORDS SUMMARY | 2024-06-05 15:58 | XMS_ITS | Encounter Summary ---
Author Organization [facility] Address [address] [place] [address] Care Team Providers Care Coil Tester Name Role Phone Unavailable Primary Care Provider Unavailabl e Encounter Details Date Type Department Care Team (Late st Contact Info) Description 04/02/2024 3:00 PM CDT Ancillary Procedure Department of Neurology Social History Tobacco Use Types Packs/Day Years Used Date Smoking Tobacco: Never Smokeless Tobacco: Never Alcohol Use Standard Drinks/Week Comments Yes 0 (1 standard drink = 0.6 oz pur e alcohol) [facility] Utilities Answer Date Recorded In the past 12 months has e electric, gas, oil, or water [employer] threatened to shut off services in your [...] any clubs o r organizations such as religious groups, unions, fraternal or athletic groups, or [...] all 12/06/2022 [facility] of Occupat ional Health - [...] your living situation today? I have a [facility] place to live 12/31/2023 Education Answer Date Recorded What is the highest level of school you have completed or the highest degree you have received? 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
--- OUTSIDE RECORDS SUMMARY | 2024-06-05 15:58 | XMS_ITS | Encounter Summary ---
Author Organization [facility] Address [address] [place] [address] Care Team Providers Care White Spooler Name Role Phone Unavailable Primary Care Provider Unavailabl e Reason for Visit * Reason Onset Date Comments Pre-visit Intake 04/29/2024 Encounter Details Date Type Department Care Team (Latest Contact Info) Description 04/29/2024 10:45 AM CDT Clinical Communication Virtual Review in [address] [phone] Pre-visit Intake Social History Tobacco Use Types Packs/Day Years Used Date Smoking Tobacco: Never Passive Smoke Exposure: Never Smokeless Tobacco: Never Alcohol Use Standard Drinks/Week Comments Yes 4 (1 standard drink = 0.6 oz pure alcohol) Currently 3-4 glasses wine per week. (elimination diet) [facility] Utilities Answer Date Recorded In the past 12 months has [facility] [employer], gas, oil, or water [employer] threatened to shut off services in your [...] How often do you attend chur or hindu services? More than 4 times per year 12/06/2022 Do you belong to any clubs o r organizations such as faith groups, unions, fraternal or athletic groups, or [...] and heating? Not hard at all 12/06/2022 [facility] [place] of Occupat ional Health - Occupational Stress [...] your living situation today? I have a [facility] place to live 12/31/2023 Education Answer Date Recorded What is the highest level of school you have completed or the highest degree you have received? Master's degree (e.g., MA, MS, Lin, MEd, GENERAL ASSEMBLER, JAKY) 02/10/2020 Comments No Sex and Gender Information Value Date Recorded Sex Assigned at Female 05/31/2021 9:13 PM CDT Legal Sex Female 8:54 PM LOGGING SUPERINTENDENT Gender Identity Female 02/10/2020 9:11 PM CDT Sexual Orientation Straight 02/10/2020 9: 11 PM CDT documented as of this encounter Plan of Treatment Not on file documented as of this encounter Visit Diagnoses Not on filedocumented in this encounter
--- OUTSIDE RECORDS SUMMARY | 2024-06-05 15:58 | XMS_ITS | Encounter Summary ---
Author Organization [facility] Address [address] [place] [address] Care Team Providers Care Pleat Taper Name Role Phone Unavailable Primary Care Provider Unavailabl e Encounter Details Date Type Department Care Team (Late st Contact Info) Description 05/19/2024 Documentation Department of Neurologic Surgery in [place], [place] [address] [place] [phone] [place] Social History Tobacco Use Types Packs/Day Years Used Date Smoking Tobacco: Never Passive Smoke Exposure: Never Smokeless Tobacco: Never Alcohol Use Standard Drinks/Week Comments Yes 4 (1 standard drink = 0.6 oz pure alcohol) Currently 3-4 glasses wine per week. (elimination diet) [facility] Utilities Answer Date Recorded In the past [address] [facility] [address], gas, oil, or water [employer] threatened to shut off services in your [...] any clubs o r organizations such as christian groups, unions, fraternal or athletic groups, or [...] and heating? Not hard at all 12/06/2022 [facility] [place] of Occupat ional Health - Occupational Stress [...] your living situation today? I have a [facility] place to live 12/31/2023 Education Answer Date Recorded What is the highest level of school you have completed or the highest degree you have received? 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
== END 2024-06-04 09:21 | disposition home or self-care (01) ==
LOC: NFLDREF 06-05 15:55
PROVIDERS: PCP Internal Medicine; Referring Provider Internal Medicine; Visit Provider Internal Medicine
DX: M85.80 Other specified disorders of bone density and structure, unspecified site (principal)
CPT/HCPCS: 82306

== ENCOUNTER 2024-11-25 08:04 | Outpatient (CLI) | payer MEDICARE, SELFPAY ==
--- NOTE | 2024-11-25 08:15 | CRLHL7_ITS ---
For Patients: As a result of the Century Cures Act, medical imaging exams and procedure reports are released immediately into your electronic medical record. You may view this report before your referring provider. If you have questions, please contact your health care provider. Technique: Double-contrast esophagram performed after the uneventful administration of effervescent crystals and thick barium followed by thin barium. Fluoroscopy time 1.32 minutes. Indication: Dysphagia Comparison: None. Findings: Esophagus: Normal morphology. Decreased esophageal motility. A few tertiary contractions are present within the distal esophagus. No hernia. No stricture or mass. Gastroesophageal reflux: Mild. Impression: Mild spontaneous reflux with mild diminished esophageal motility and mild chronic reflux esophagitis. Dictated by Antony Gross MD @ 11/25/2024 12:16:22 PM (Electronically Signed)
== END 2024-11-25 08:05 | disposition home or self-care (01) ==
LOC: RAD 08:06
PROVIDERS: PCP Internal Medicine; Visit Provider Internal Medicine
DX: R13.10 Dysphagia, unspecified (principal); K21.00 Gastro-esophageal reflux disease with esophagitis, without bleeding
CPT/HCPCS: 74221

== ENCOUNTER 2024-12-06 08:17 | Outpatient (CLI) | payer MEDICARE, SELFPAY ==
--- NOTE | 2024-12-06 09:13 | P.ANES_ITS ---
Anesthesia Charges Start Date/Time Anesthesia Start Date: 12/06/24 Anesthesia Start Time: 08:52 Stop Date/Time Anesthesia Stop Date: 12/06/24 Anesthesia Stop Time: 09:15 Summary Extremes of Age - Over 70 or under 1: METAL ENGRAVER Coding CPT Codes CPT Codes: ANES UPR GI NDSC PX NOS - 33756 ([id number]) P2 - PATIENT W/MILD SYST DISEASE, QX - METAL ENGRAVER SVC W/ MD MED DIRECTION, QK - BATH MIXER 2-4 CNCRNT ANES PROC Additional Codes: Summary - Extremes of Age - Over 70 or under 1: METAL ENGRAVER ([id number])
--- NOTE | 2024-12-06 09:13 | W.ANESCHARGE ---
Anesthesia Charges Start Date/Time Anesthesia Start Date: 12/06/24 Anesthesia Start Time: 08:52 Stop Date/Time Anesthesia Stop Date: 12/06/24 Anesthesia Stop Time: 09:15 Summary Extremes of Age - Over 70 or under 1: GLASS BLOCK BENDER Coding CPT Codes CPT Codes: ANES UPR GI NDSC PX NOS - 29795 ([id number]) P2 - PATIENT W/MILD SYST DISEASE, QX - GLASS BLOCK BENDER SVC W/ MD MED DIRECTION, QK - BUNDLE PACKER 2-4 CNCRNT ANES PROC Additional Codes: Summary - Extremes of Age - Over 70 or under 1: GLASS BLOCK BENDER ([id number])
--- NOTE | 2024-12-06 09:20 | P.ANES_ITS ---
Anesthesia Charges Start Date/Time Anesthesia Start Date: 12/06/24 Anesthesia Start Time: 08:52 Stop Date/Time Anesthesia Stop Date: 12/06/24 Anesthesia Stop Time: 09:15 Summary Extremes of Age - Over 70 or under 1: MDA Coding CPT Codes CPT Codes: ANES UPR GI NDSC PX NOS - 84245 ([id number]) QK - MANAGER FIELD SALES 2-4 CNCRNT ANES PROC, P2 - PATIENT W/MILD SYST DISEASE, QX - STUDENT DEVELOPMENT COORDINATOR SVC W/ MD MED DIRECTION Additional Codes: Summary - Extremes of Age - Over 70 or under 1: [place] ([id number])
== END 2024-12-06 08:18 | disposition home or self-care (01) ==
LOC: OP CLINIC 08:17
PROVIDERS: PCP Internal Medicine; Visit Provider Internal Medicine
DX: R13.10 Dysphagia, unspecified (principal); K21.9 Gastro-esophageal reflux disease without esophagitis
CPT/HCPCS: 00731; 43239; 88305; 88342; 99100; J2704; J3490

== ENCOUNTER 2024-12-17 11:37 | Outpatient (CLI) | payer MEDICARE, SELFPAY | END 2024-12-17 11:38 | disposition home or self-care (01) | LOC: NFLDREF 12-20 04:05 | PROVIDERS: PCP Internal Medicine; Referring Provider Internal Medicine; Visit Provider Internal Medicine | DX: K29.80 Duodenitis without bleeding (principal) | CPT/HCPCS: 87338 ==

== ENCOUNTER 2025-02-17 13:10 | Outpatient (CLI) | payer MEDICARE, SELFPAY ==
--- NOTE | 2025-02-17 13:20 | CRLHL7_ITS ---
For Patients: As a result of the Century Cures Act, medical imaging exams and procedure reports are released immediately into your electronic medical record. You may view this report before your referring provider. If you have questions, please contact your health care provider. INDICATION: BILATERAL SCREENING MAMMOGRAM, ASYMPTOMATIC 74 Y/O FEMALE COMPARISON: 02/17/2024, 02/14/2023, 02/11/2022 TECHNIQUE: Digital mammogram in CC and MLO projections including computer-aided detection (CAD) and tomosynthesis. BREAST COMPOSITION: There are scattered areas of fibroglandular density. FINDINGS: No suspicious findings. ASSESSMENT: BI-RADS 1 Negative RECOMMENDATION: Annual screening mammogram. A lay language report of this examination will be provided to the patient. Dictated by: Antony Gross MD @ 02/18/2025 10:08:51 (Electronically Signed)
== END 2025-02-17 13:11 | disposition home or self-care (01) ==
LOC: MAMMO 13:11
PROVIDERS: PCP Internal Medicine; Visit Provider Internal Medicine
DX: Z12.31 Encounter for screening mammogram for malignant neoplasm of breast (principal)
CPT/HCPCS: 77063; 77067

== ENCOUNTER 2025-06-02 08:40 | Outpatient (CLI) | payer MEDICARE, SELFPAY | END 2025-06-02 08:41 | disposition home or self-care (01) | LOC: NFLDREF 23:29 | PROVIDERS: PCP Internal Medicine; Referring Provider Internal Medicine; Visit Provider Internal Medicine | DX: M85.80 Other specified disorders of bone density and structure, unspecified site (principal) | CPT/HCPCS: 82306 ==

== ENCOUNTER 2025-06-29 15:14 | Outpatient (CLI) | payer MEDICARE, SELFPAY ==
--- NOTE | 2025-06-29 15:30 | CRLHL7_ITS ---
For Patients: As a result of the Century Cures Act, medical imaging exams and procedure reports are released immediately into your electronic medical record. You may view this report before your referring provider. If you have questions, please contact your health care provider. XR DXA Bone Mineral Density (BMD) Reason for exam: Osteoporosis. Current height (inches): 65.0 Weight (lbs.): 140.0 Menopause age: 53 Ethnicity: White 1. Have you had a previous hip or vertebral fracture? No. 2. Have you had any fractures during your adult life which did not result from significant trauma (e.g., auto accident)? Yes. 3. Did either of your parents have a hip fracture? No. 4. Do you smoke? No. 5. Have you ever taken Glucocorticoids? Yes. 6. Do you have rheumatoid arthritis? No. 7. Do you have secondary osteoporosis? No. 8. Do you drink 3 or more alcoholic drinks per day? No. 9. Are you being treated for osteoporosis? Yes. 10. Have you ever taken any of the following medications: Actonel, Evista, Fosamax, Miacalcin, Reclast, Boniva, Forteo, HRT (i.e., estrogen/hormone therapy), Protelos, Prolia, Vitamin D, Calcium, other ??? please specify. ANSWER: Yes; Evista, Fosamax, HRT, vitamin D and calcium. 11. Do you have any of the following medical conditions: Anorexia or bulimia, asthma or emphysema, end stage renal disease, hyperparathyroidism, any seizure disorders, cancer, inflammatory bowel diseases, hysterectomy, other ??? please specify. ANSWER: No. 12. What was your maximum height (inches)? 67. 13. Do you perform weightbearing exercise regularly? No. 14. Do you regularly consume dairy products? Yes. 15. Do you drink caffeinated beverages? Yes. 16. At what age did your period start? 11. 17. Are you premenopausal? No. 18. How many full-term pregnancies have you had? 2. 19. Have you ever missed your period for more than 6 months in a row (not including or menopause)? No. TECHNIQUE: Bone mineral density study was performed using the [employer]. FINDINGS: The results of the study expressed as bone mineral density (BMD) are as follows: Lumbar Spine L1 to L4: BMD: 0.921 g/cm2. T-score: -1.1. Z-score: 1.4. Neck Left: BMD: 0.545 g/cm2. T-score: -2.7. Z-score: -0.6. Right: BMD: 0.552 g/cm2. T-score: -2.7. Z-score: -0.5. Total Left: BMD: 0.717 g/cm2. T-score: -1.8. Z-score: 0.0. Right: BMD: 0.666 g/cm2. T-score: 0.1. Z-score: 0.1. IMPRESSION: Osteoporosis. COMPARISON: Compared with scan of 05/29/2022, the bone mineral density has decreased by 3.0% at the spine and increased by 8.1% at the hip. Compared with scan of 02/15/2019, the bone mineral density has increased by 3.6% at the spine and decreased by 6.7% at the hip. *Comparison exams done prior to 01/2020 were performed on different unit, [employer]. ANTONY LEMUS M.D. Diagnostic Radiologist [email or web address] Transcribed: 1:[address]/Dictated by: Antony Lemus MD @ 06/30/2025 8:10:00 AM (Electronically Signed)
== END 2025-06-29 15:15 | disposition home or self-care (01) ==
LOC: RAD 15:15
PROVIDERS: PCP Internal Medicine; Visit Provider Internal Medicine
DX: M81.0 Age-related osteoporosis without current pathological fracture (principal)
CPT/HCPCS: 77080